=== PATIENT | male | born 1940 | race African-American/Black ===

== ENCOUNTER 2016-12-15 08:13 | Emergency (ER) | payer MEDICARE ==
[~2016-12-15] VITALS: Ht 175.3 cm; Wt 89.8 kg
[~2016-12-15 08:13] MED LIST: ASPI325T4 PO; HYDR-2762 PO; INSU100I11 SQ; NPH,100I3 SQ; OLME1TAB5 PO; SIMV20TA3 PO; TAMS0.4C2 PO
--- NOTE | 2016-12-15 08:48 | PHYS DOC ---
Past Medical History Past Medical History: Diabetes-Type II, High Cholesterol, Hypertension, Other Additional Past Medical Histor: enlarged prostate Past Surgical History: No Surgical History Alcohol Use: None Drug Use: None Adult General Chief Complaint Chief Complaint: LOWER BACK PAIN OR INJURY [facility] HPI Patient is a 76 year old male presents to emergency room today with atraumatic low back pain that does not radiate and is primarily located in his left lower back. Patient states this began approximately 5 days ago. Patient denies any slips or falls. Patient denies any history of spinal column or spinal cord injuries. Patient denies any known history of bone forming disorders. Patient denies saddle anesthesia or incontinence of urine and bowel. Patient denies flank pain, testicular pain, dysuria or hematuria. He states he does have a history of enlarged prostate, but denies personal history of prostate cancer. Patient reports that he recently returned from a car trip to [place] he states there was no problems with a car trip. There were no auto accidents reported. Patient does take [place] 7.5/325 daily for chronic pain. He states that that has not appeared to have helped very much. However, the pain has gradually been subsiding over the past 4 days. Review of Systems Review of Systems Constitutional: Denies fever or chills [] Eyes: Denies change in visual acuity, redness, or eye pain [] HENT: Denies nasal congestion or sore throat [] Respiratory: Denies cough or shortness of breath [] Cardiovascular: No additional information not addressed in HPI [] GI: Denies abdominal pain, nausea, vomiting, bloody stools or diarrhea [] : Denies dysuria or hematuria [] Musculoskeletal: Denies back pain or joint pain [] Integument: Denies rash or skin lesions [] Neurologic: Denies headache, focal weakness or sensory changes [] Endocrine: Denies polyuria or polydipsia [] Allergies Allergies Allergies Coded Allergies Type Severity Reaction Last Updated Verified No Known Drug Allergies 12/15/16 No Physical Exam Physical Exam Constitutional: Well developed, well nourished, no acute distress, non-toxic appearance. [] HENT: Normocephalic, atraumatic, bilateral external ears normal, oropharynx moist, no oral exudates, nose normal. [] Eyes: PERRLA, EOMI, conjunctiva normal, no discharge. [] Neck: Normal range of motion, no tenderness, supple, no stridor. [] Cardiovascular:Heart rate regular rhythm, no murmur [] Lungs & Thorax: Bilateral breath sounds clear to auscultation [] Abdomen: Bowel sounds normal, soft, no tenderness, no masses, no pulsatile masses. [] Skin: Warm, dry, no erythema, no rash. [] Back: Patient's back is normal in appearance without any overlying skin lesions suggestive of shingles. There is no CVA tenderness. Patient has tenderness to the left paraspinous region at the level of L3-L5 and S1. There is no palpable defect, deformity or spasm. Patient also complains of some midline tenderness in this region as well. Again there is no step-off deformity or abnormality. Extremities: No tenderness, no cyanosis, no clubbing, ROM intact, no edema. [] Neurologic: Alert and oriented X 3, normal motor function, normal sensory function, no focal deficits noted. [] Psychologic: Affect normal, judgement normal, mood normal. [] Current Patient Data Vital Signs Vital Signs Date Time Temp Pulse Resp B/P Pulse Ox O2 Delivery O2 Flow Rate FiO2 12/15/16 10:25 58 18 134/74 98 Room Air 12/15/16 08:29 97.5 97.5 EKG EKG [] Radiology/Procedures Radiology/Procedures [facility] [address] [place], [place] [id number] IMAGING REPORT Signed PATIENT: LAURA SANCHEZ ACCOUNT: [id number] : 1940 LOCATION: ER AGE: 76 SEX: M EXAM STATUS: REG ER ORD. PHYSICIAN: BRADFORD KNOTT REASON: LOW back pain PROCEDURE: LUMBAR SPINE WO CONTRAST EXAM: CT lumbar spine without contrast. HISTORY: Low back pain. TECHNIQUE: CT of the lumbar spine was performed without intravenous contrast. COMPARISON: None. FINDINGS: There is minimal retrolisthesis at L4-5. No fractures are identified. Degenerative disc disease is moderate to severe at L4-5, moderate at L3-4 and mild at other levels. There is a small zone at the inferior endplate of L2. There are cysts bilaterally in the kidneys, partially visualized. These appear stable since 2011. Atherosclerotic calcifications are noted. At L1-2, there is moderate bilateral facet osteoarthritis. There is mild right foraminal stenosis. At L2-3, there is a small posterior disc-osteophyte complex. There is moderate facet and ligamentum flavum hypertrophy. Central canal stenosis is mild. Foraminal stenosis is moderate on the left and [id number]-eo-siykcyzh on the right. At L3-4, there is a moderate posterior disc-osteophyte complex. There is mild to moderate facet and ligamentum flavum hypertrophy. Central canal stenosis is mild. Foraminal stenosis is moderate to severe on the right greater than left. L4-5, there is a moderate posterior disc-osteophyte complex. There is mild/moderate facet and ligamentum flavum hypertrophy. Central canal stenosis is moderate. Foraminal stenosis is moderate to severe on the left and moderate on the right. At L5-S1, there is a small posterior disc bulge. There is moderate to severe bilateral facet osteoarthritis. Central canal stenosis is moderate to severe. There is mild bilateral foraminal stenosis. IMPRESSION: 1. Diffuse central canal stenosis is moderate to severe at L5-S1, moderate at L4-5, and mild/moderate more superiorly as above. 2. Foraminal stenosis is diffusely moderate to severe from facet and ligamentum flavum hypertrophy as above. 3. Degenerative disc disease is moderate to severe at L4-5, moderate at L3-4 and mild elsewhere. One or more of the following individualized dose reduction techniques were utilized for this examination: 1. Automated exposure control. 2. Adjustment of the mA and/or kV according to patient size. 3. Use of iterative reconstruction technique. DICTATED and SIGNED BY: POLINA ROBERTS MD DATE: 12/15/16 0927 CC: BRADFORD KNOTT; MAIKEL CARTER MD ~ Course & Med Decision Making Course & Med Decision Making Pertinent Labs and Imaging studies reviewed. (See chart for details) [] Dragon Disclaimer Dragon Disclaimer This electronic medical record was generated, in whole or in part, using a voice recognition dictation system. Departure Departure Impression: Primary Impression: Back pain Additional Impression: Osteoarthritis Disposition: 01 HOME, SELF-CARE Condition: GOOD Referrals: MAIKEL CARTER MD (PCP) Patient Instructions: Back Pain, Adult, [id number]-[id number], Osteoarthritis Additional Instructions: 1. The CT scan of your back today shows no broken bones. There is quite a bit of degenerative changes that are chronic in nature. 2. The arthritis in your back was aggravated during the trip to [place] this past week. The fact that it has been resolving over the past week is very reassuring. 3. Continue to take your medications as prescribed. You can safely take your pain medication every 6 hours to help manage the pain. 4. Contact your primary care doctor's office this afternoon to schedule follow- up appointment for reevaluation next week if there are any concerns. Problem Qualifiers BRADFORD KNOTT Dec 15, 2016 08:48
--- NOTE | 2016-12-15 09:37 | RAD ---
EXAM: CT lumbar spine without contrast. HISTORY: Low back pain. TECHNIQUE: CT of the lumbar spine was performed without intravenous contrast. COMPARISON: None. FINDINGS: There is minimal retrolisthesis at L4-5. No fractures are identified. Degenerative disc disease is moderate to severe at L4-5, moderate at L3-4 and mild at other levels. There is a small zone at the inferior endplate of L2. There are cysts bilaterally in the kidneys, partially visualized. These appear stable since 2011. Atherosclerotic calcifications are noted. At L1-2, there is moderate bilateral facet osteoarthritis. There is mild right foraminal stenosis. At L2-3, there is a small posterior disc-osteophyte complex. There is moderate facet and ligamentum flavum hypertrophy. Central canal stenosis is mild. Foraminal stenosis is moderate on the left and [id number]-[id number] on the right. At L3-4, there is a moderate posterior disc-osteophyte complex. There is mild to moderate facet and ligamentum flavum hypertrophy. Central canal stenosis is mild. Foraminal stenosis is moderate to severe on the right greater than left. L4-5, there is a moderate posterior disc-osteophyte complex. There is mild/moderate facet and ligamentum flavum hypertrophy. Central canal stenosis is moderate. Foraminal stenosis is moderate to severe on the left and moderate on the right. At L5-S1, there is a small posterior disc bulge. There is moderate to severe bilateral facet osteoarthritis. Central canal stenosis is moderate to severe. There is mild bilateral foraminal stenosis. IMPRESSION: 1. Diffuse central canal stenosis is moderate to severe at L5-S1, moderate at L4-5, and mild/moderate more superiorly as above. 2. Foraminal stenosis is diffusely moderate to severe from facet and ligamentum flavum hypertrophy as above. 3. Degenerative disc disease is moderate to severe at L4-5, moderate at L3-4 and mild elsewhere. One or more of the following individualized dose reduction techniques were utilized for this examination: 1. Automated exposure control. 2. Adjustment of the mA and/or kV according to patient size. 3. Use of iterative reconstruction technique.
[2016-12-15 10:25] VITALS: BP 134/74
== END 2016-12-15 10:27 | disposition home or self-care (01) ==
LOC: ER 08:13
DX: M47.817 Spondylosis without myelopathy or radiculopathy, lumbosacral region (principal); M48.06 Spinal stenosis, lumbar region; G89.29 Other chronic pain; E11.9 Type 2 diabetes mellitus without complications; E78.00 Pure hypercholesterolemia, unspecified; I10 Essential (primary) hypertension; N40.0 Benign prostatic hyperplasia without lower urinary tract symptoms
CPT/HCPCS: 72131; 99284-25

== ENCOUNTER 2017-03-15 16:14 | Observation (INO) | payer BC ==
[~2017-03-15] VITALS: Ht 175.3 cm; Wt 87.1 kg
--- NOTE | 2017-03-15 17:25 | RAD ---
CT HEAD WO CONTRAST History: Left hand numbness for one day, history of TIA Comparison: MRI brain exam November 12, 2015, no previous head CT available Technique: Noncontrast [address] images were acquired from the skull base to the vertex. Exposure: One or more of the following individualized dose reduction techniques were utilized for this examination: 1. Automated exposure control 2. Adjustment of the mA and/or kV according to patient size 3. Use of iterative reconstruction technique. Findings: No acute extra-axial or parenchymal hemorrhage is identified. There is no significant intra-axial mass effect, midline shift, or extra-axial fluid collection. The enriquez-white differentiation of the major vascular territories is preserved. Ventricular size is stable. There is mild generalized supratentorial involutional change. The mastoid air cells and the visualized paranasal sinuses are aerated. No acute calvarial abnormality is identified. Impression: 1. No acute intracranial abnormality is identified. If there is concern for evolving or acute ischemia, followup CT or MRI could be beneficial. Electronically signed by: Ifeanyi Sorto MD (03/15/2017 5:22 PM)
--- NOTE | 2017-03-15 17:41 | PHYS DOC ---
Past Medical History Past Medical History: Diabetes-Type II, High Cholesterol, Hypertension, Other Additional Past Medical Histor: enlarged prostate Past Surgical History: No Surgical History Alcohol Use: None Drug Use: None Adult General Chief Complaint Chief Complaint: NEURO SYMPTOMS/DEFICITS HPI HPI 68-year-old male presenting to the emergency department with weakness in his left upper extremity and numbness in his left upper extremity from his elbow to his hand. This started approximately 24-30 hours ago. It is currently improving he reports. He denies any slurred speech facial droop or vision changes. Location brain. Duration intermittent. No alleviating factors. Review of systems is negative for chest pain shortness of breath abdominal pain nausea vomiting. All other review of systems is negative unless otherwise noted in history of present illness. Review of Systems Review of Systems SEE ABOVE. Allergies Allergies Allergies Coded Allergies Type Severity Reaction Last Updated Verified No Known Drug Allergies 12/15/16 No Physical Exam Physical Exam Constitutional: Well developed, well nourished, no acute distress, non-toxic appearance. HENT: Normocephalic, atraumatic, bilateral external ears normal, oropharynx moist, no oral exudates, nose normal. [] Eyes: PERRLA, EOMI, conjunctiva normal, no discharge. Neck: Normal range of motion, no tenderness, supple, no stridor. [] Cardiovascular:Heart rate regular rhythm, no murmur Lungs & Thorax: Bilateral breath sounds clear to auscultation [] Abdomen: Bowel sounds normal, soft, no tenderness, no masses, no pulsatile masses. [] Skin: Warm, dry, no erythema, no rash. Back: No tenderness, no CVA tenderness. [] Extremities: No tenderness, no cyanosis, no clubbing, ROM intact, no edema. Neurologic: Mental status: Awake oriented and alert x3 Cranial nerves: Extraocular movements intact, eyebrows jeannette bilaterally smile symmetric, uvula elevation, shoulder shrug intact, tongue protrusion normal DTRs: 2+ Sensation: Patient reports tingling in his left upper hand. Otherwise normal on both sides. Strength: 5/5 in upper and lower extremities bilaterally Normal finger to nose. No dysdiadochokinesia present. Psychologic: Affect normal, judgement normal, mood normal. [] Current Patient Data Vital Signs Vital Signs Date Time Temp Pulse Resp B/P (MAP) Pulse Ox O2 Delivery O2 Flow Rate FiO2 03/15/17 16:40 97.9 58 16 148/90 (109) 97 Room Air 97.9 EKG EKG [] Radiology/Procedures Radiology/Procedures [] Course & Med Decision Making Course & Med Decision Making Pertinent Labs and Imaging studies reviewed. (See chart for details) [] 68-year-old gentleman presenting to the emergency department with left hand numbness and weakness. Patient was afebrile with a normal heart rate. Pertinent physical exam findings showed 5 out of 5 strength in his upper extremity. He did report sensation changes in his left upper hand. The patient is outside of the TPA window and is outside of mechanical thrombectomy window. In addition to this, his NIH stroke scale would be very low and is currently improving. Head CT was unremarkable. Labs were obtained. The patient was then admitted to our hospital for MRI and neurology consultation, further evaluation workup and care. Discussed this as being in an observation admission with the admitting physician who agrees. Does not meet inpatient criteria. Dragon Disclaimer Dragon Disclaimer This electronic medical record was generated, in whole or in part, using a voice recognition dictation system. Departure Departure Impression: Primary Impression: Focal neurological deficit Disposition: ADMITTED INPATIENT Admitting Physician: Myriam Yung Condition: STABLE Referrals: MAIKEL CARTER MD (PCP) GABI ZARATE MD March 15, 2017 17:41
[2017-03-15 17:55] LABS: BASO # 0.1 x10^3/uL (0.0-0.2); BASO % 1 % (0-3); EOS % 1 % (0-3); LYMPH # 2.9 x10^3/uL (1.0-4.8); LYMPH % 37 % (24-48); MEAN CORPUSCULAR HEMOGLOBIN 30 pg (25-35); MEAN CORPUSCULAR HGB CONC 33 g/dL (31-37); MEAN CORPUSCULAR VOLUME 92 fL (79-100); MONO % 6 % (0-9); NEUT % 56 % (31-73); PLATELET COUNT 220 x10^3/uL (140-400)
[2017-03-15 18:10] LABS: CALCIUM 9.7 mg/dL (8.5-10.1); CREATININE 1.6 mg/dL (0.7-1.3); GFR 50.8; POTASSIUM 3.9 mmol/L (3.5-5.1)
[2017-03-15 18:19] LABS: BILIRUBIN,URINE NEGATIVE (NEG); GLUCOSE,URINE NEGATIVE (NEG); NITRITE,URINE NEGATIVE (NEG); PH,URINE 5.5; PROTEIN,URINE NEGATIVE (NEG-TRACE); UROBILINOGEN,URINE 0.2 mg/dL (0.2 mg/dL)
[2017-03-15 18:23] LABS: ALBUMIN 4.2 g/dL (3.4-5.0); DIRECT BILIRUBIN 0.1 mg/dL (0.0-0.2); TOTAL BILIRUBIN 0.5 mg/dL (0.2-1.0); TOTAL PROTEIN 7.7 g/dL (6.4-8.2)
--- NOTE | 2017-03-15 18:23 | PDOC2 ---
NEUROLOGY CONSULT Date of Admission Date of Admission DATE: 03/15/17 TIME: 18:11 Reason for Consult Reason for Consult: IMPRESSION: Left UE numbness and weakness x 24 to 30 hours before coming to ER. 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 DM HTN HLD Degenerative spine disease. Spinal stenosis. Smoking x 40 years. RECOMMENDATIONS/PLAN: Continue ASA 325 mg daily at the present time, may switch to Plavix if has stroke. Brain and C-spine MRI w/o contrast. carotid A US + Doppler. Echo + Bubble study. Fasting lipid panel and other labs. OT/PT Discussed with his at bedside. HISTORY OF THE PRESENT ILLNESS: 76-y-old AA male patient with Hx of old CVA in 2015 with left side weakness at the time of his stroke. He recovered well post stroke per his . He developed symptoms of numbness and weakness in his left UE for about 24 to 30 hours before he came to [facility] ER [facility]. He stated that his symptoms persistent. His cranial nerves and LE were not involved. PAST MEDICAL HISTORY: Please see above. 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 ALLERGY: Unknown MEDICATIONS: Refer to [facility] HISTORY: Non contributory. SOCIAL HISTORY: Lives at home. Denies illicit drug use. He smokes 1 pack of cigarettes a day for 60 years. He drinks occasionally. REVIEW OF SYSTEMS: Constitutional: No malnutrition, weight loss, cachexia. Head: No traumatic brain or head injury. Skin: No edema, or rash. Ear: No infection. Eyes: No vision loss or color blindness. Nose: No bleeding or purulent discharges. Hearing: No hearing decrease. Neck: No injury. Cardiac: HTN, HLD. Pulmonary: No SOB. GI: No GI ulcer, GI bleeding. Urinary/genital: BPH. Endocrinologic: Diabetes Mellitus. Skeletomuscular: No muscular atrophy, deformity. Neurological: see HP. Psychiatric: Denies drug use/abuse. Otherwise, not [id number] review of systems. PHYSICAL EXAMINATION: General appearance is in subacute distress. HEENT: Normocephalic and nontraumatic. Eyes, nose, ears, and throat are unremarkable. Neck is supple. No lymphadenopathy. No crepitus. Cardiovascular: S1, S2, regular rate and rhythm. Pulmonary: Clear to auscultation bilaterally. Abdomen: Bowel sounds are positive. Abdomen is soft, nontender, and nondistended. Extremities: No rash, lesions, or edema. No restriction of range of motion NEUROLOGICAL EXAMINATION: Awake. Oriented to place and person and partially to time. PERRL. EOMI. Sclera congestion. CN: no acute focal findings. Muscle tone: within normal. Muscle strength: 5 DTR: 1-2 Plantar reflex: Neutral response bilaterally Gait: not examined in bed. Sensory exam: seemed mildly decreased in left UE. No abnormal findings in right UE and LE. No acute cerebellar signs elicited. F-T-N test fine. Current Medications Current Medications Current Medications Aspirin (Derik Aspirin) 325 mg DAILYWBKFT PO ; Start 03/16/17 at 08:00 Active Scripts Active Aspirin 325 Mg Tablet 325 Mg PO DAILYWBKFT Reported Humulin N Kwikpen (Nph, Human Insulin Isophane) 100 Unit/1 Ml Insuln.pen 15-20 Units SQ BID Gave 15 units this morning Take 15 units this evening at bedtime Humalog (Insulin Lispro) 100 Unit/1 Ml Insuln.pen 7 Units SQ TIDWMEALS Gave 7 units with lunch today Take this evening with dinner Simvastatin 20 Mg Tablet 1 Tab PO DAILY Take tonight before bed Hydrocodone-Apap 7.5-325 (Hydrocodone Bit/Acetaminophen) 1 Each Tablet 1-2 Tab PO Q8HRS PRN Not given on this admission Take as needed at home Benicar Hct 40-25 Mg Tablet (Olmesartan/Hydrochlorothiazide) 1 Each Tablet 1 Tab PO DAILY Gave this am Take tomorrow morning Tamsulosin Hcl 0.4 Mg Cap.er.24h 0.4 Mg PO DAILY Gave this morning Take tomorrow morning Allergies Allergies: Coded Allergies: No Known Drug Allergies (Unverified , 12/15/16) Vitals VITALS Vital Signs Date Time Temp Pulse Resp B/P (MAP) Pulse Ox O2 Delivery O2 Flow Rate FiO2 03/15/17 16:40 97.9 58 16 148/90 (109) 97 Room Air 97.9 Labs Labs Laboratory Tests Test 03/15/17 17:45 White Blood Count 8.0 x10^3/uL (4.0-11.0) Red Blood Count 4.70 x10^6/uL (4.30-5.70) Hemoglobin 14.0 g/dL (13.0-17.5) Hematocrit 43.0 % (39.0-53.0) Mean Corpuscular Volume 92 fL (79-100) Mean Corpuscular Hemoglobin 30 pg (25-35) Mean Corpuscular Hemoglobin Concent 33 g/dL (31-37) Red Cell Distribution Width 15.0 % (11.5-14.5) Platelet Count 220 x10^3/uL (140-400) Neutrophils (%) (Auto) 56 % (31-73) Lymphocytes (%) (Auto) 37 % (24-48) Monocytes (%) (Auto) 6 % (0-9) Eosinophils (%) (Auto) 1 % (0-3) Basophils (%) (Auto) 1 % (0-3) Neutrophils # (Auto) 4.4 x10^3uL (1.8-7.7) Lymphocytes # (Auto) 2.9 x10^3/uL (1.0-4.8) Monocytes # (Auto) 0.5 x10^3/uL (0.0-1.1) Eosinophils # (Auto) 0.0 x10^3/uL (0.0-0.7) Basophils # (Auto) 0.1 x10^3/uL (0.0-0.2) Laboratory Tests Test 03/15/17 17:45 White Blood Count 8.0 x10^3/uL (4.0-11.0) Red Blood Count 4.70 x10^6/uL (4.30-5.70) Hemoglobin 14.0 g/dL (13.0-17.5) Hematocrit 43.0 % (39.0-53.0) Mean Corpuscular Volume 92 fL (79-100) Mean Corpuscular Hemoglobin 30 pg (25-35) Mean Corpuscular Hemoglobin Concent 33 g/dL (31-37) Red Cell Distribution Width 15.0 % (11.5-14.5) Platelet Count 220 x10^3/uL (140-400) Neutrophils (%) (Auto) 56 % (31-73) Lymphocytes (%) (Auto) 37 % (24-48) Monocytes (%) (Auto) 6 % (0-9) Eosinophils (%) (Auto) 1 % (0-3) Basophils (%) (Auto) 1 % (0-3) Neutrophils # (Auto) 4.4 x10^3uL (1.8-7.7) Lymphocytes # (Auto) 2.9 x10^3/uL (1.0-4.8) Monocytes # (Auto) 0.5 x10^3/uL (0.0-1.1) Eosinophils # (Auto) 0.0 x10^3/uL (0.0-0.7) Basophils # (Auto) 0.1 x10^3/uL (0.0-0.2) ÁLVARO NUÑEZ MD March 15, 2017 18:23
[2017-03-15 18:25] LABS: BARBITURATES NEG (NEG); BENZODIAZEPINES NEG (NEG); CANNABINOIDS NEG (NEG); COCAINE NEG (NEG); METHADONE NEG (NEG); OPIATES POS (NEG); PHENCYCLIDINE NEG (NEG)
[2017-03-15 18:29] LABS: BACTERIA,URINE 0 /HPF (0-FEW); RBC,URINE OCC /HPF (0-2); SQUAMOUS EPITHELIAL CELL,UR FEW /LPF
[2017-03-15] MEDS ORDERED: MORPHINE SULFATE 2 MG/ML DISP.SYRIN. IV PRN (19:30)
[2017-03-15] MEDS ORDERED: ONDANSETRON PF 4 MG/2 ML VIAL. IV PRN (19:30)
--- NOTE | 2017-03-15 20:23 | RAD ---
Carotid doppler ultrasound History: Left arm weakness today Multiple grayscale, color, and duplex spectral analysis waveform sonographic images were acquired of the carotid, subclavian, and vertebral arteries. Comparison: None Findings: RIGHT: PSV cm/sec EDV cm/sec Common carotid artery 89 26 Maximal internal carotid artery 65 21 External carotid artery 75 Vertebral artery 36 ICA/CCA ratio 0.73 LEFT: PSV cm/sec EDV cm/sec Common carotid artery 99 25 Maximum internal carotid artery 76 13 External carotid artery 83 Vertebral artery 46 ICA/CCA ratio 0.77 Velocities used to determine stenosis are known to correlate with NASCET angiographic criteria. There is antegrade flow in the bilateral vertebral arteries. There is tortuosity of the internal carotid arteries bilaterally. There is mild intimal thickening bilaterally. There is mild eccentric plaque of the carotid bifurcations bilaterally, left greater than right. There is no significant stenosis demonstrated on grayscale or color images. Impression: 1. There is no evidence of a hemodynamically significant stenosis. Electronically signed by: Ifeanyi Sorto MD (03/15/2017 8:21 PM)
[2017-03-15 20:55] VITALS: BP 160/79
[2017-03-15 23:06] VITALS: BP 169/85
--- NOTE | 2017-03-15 23:16 | RAD ---
MRI Brain without contrast History: Left hand numbness for 2 days, weakness Technique: Axial diffusion, axial gradient echo T2, axial T2, axial FLAIR, sagittal and axial T1, and coronal T2 weighted images were acquired of the brain. Contrast: None Comparison: November 12, 2015 Findings: There is mild motion degradation.There is no evidence of recent infarct or cytotoxic edema. Ventricular size is stable, proportioned to the sulcal spaces. There is again mild generalized supratentorial atrophy. There are again multiple foci of abnormal T2 and FLAIR hyperintensity on abnormality of the supratentorial white matter bilaterally, overall extent of signal abnormality similar. There is no new significant hemosiderin deposition of the brain parenchyma. There is again old lacunar infarct of the left cerebellum.There is no significant midline shift, intra-axial mass effect, or focal abnormal extra-axial fluid collection. There is preservation of the major intracranial flow-voids at the skull base. The mastoid air cells are aerated. The cerebellar tonsils are normal in location. There is no significant abnormality of the pineal gland or pituitary gland. There is negligible patchy maxillary sinus mucosal thickening, also minimal bilateral ethmoid air cell and frontal sinus mucosal thickening. There is preserved marrow signal of the clivus. 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 Impression: 1. There is no evidence of a recent infarct or intracranial mass effect, findings similar to October 2015 exam. Similar multiple foci of T2 and FLAIR hyperintense signal abnormality of the supratentorial white matter are nonspecific, most commonly due to chronic microvascular ischemic disease in a patient this age. There is again generalized supratentorial atrophy. Electronically signed by: Ifeanyi Sroto MD (03/15/2017 11:13 PM)
[2017-03-15] MEDS: IV NORMAL SALINE 1000ML BAG 1,000 ML IV SCH (23:32)
[2017-03-16 03:30] VITALS: BP 137/89
[2017-03-16 04:36] LABS: CREATININE 1.2 mg/dL (0.7-1.3); GFR 70.9; POTASSIUM 3.6 mmol/L (3.5-5.1)
[2017-03-16 04:42] LABS: CHOLESTEROL/HDL RATIO 3.6
[2017-03-16 05:38] LABS: HEMATOCRIT 40.8 % (39.0-53.0); HEMOGLOBIN 13.2 g/dL (13.0-17.5); MEAN CORPUSCULAR VOLUME 92 fL (79-100); RED BLOOD COUNT 4.45 x10^6/uL (4.30-5.70); WHITE BLOOD COUNT 6.7 x10^3/uL (4.0-11.0)
[2017-03-16 05:39] LABS: BASO % 1 % (0-3); EOS % 2 % (0-3); LYMPH # 3.1 x10^3/uL (1.0-4.8); LYMPH % 46 % (24-48); MEAN CORPUSCULAR HEMOGLOBIN 30 pg (25-35); MEAN CORPUSCULAR HGB CONC 32 g/dL (31-37); MONO % 7 % (0-9); NEUT % 44 % (31-73); PLATELET COUNT 207 x10^3/uL (140-400); RED CELL DISTRIBUTION WIDTH 15.5 % (11.5-14.5)
[2017-03-16 05:40] LABS: BASO # 0.1 x10^3/uL (0.0-0.2)
[2017-03-16 07:00] VITALS: BP 124/74
--- NOTE | 2017-03-16 07:22 | EKG ---
[facility] [address] [place] [address] Test Date: 2017-03-15 Test Time: 17:37:24 Pat Name: LAURA SANCHEZ Department: Room: 438 1 Gender: M Cytotechnologist/Histotechnologist: : 1940 Requested By: GABI ZARATE Order Number: [id number] Reading MD: Camryn Nix Measurements Intervals [place] Rate: 59 P: 41 NC: 236 QRS: 15 QRSD: 68 T: 75 QT: 428 QTc: 424 Interpretive Statements SINUS RHYTHM PROLONGED NC INTERVAL T ABNORMALITY IN HIGH LATERAL LEADS Electronically Signed On 03-18-2017 15:22:26 CDT by Camryn Nix
--- NOTE | 2017-03-16 07:38 | RAD ---
Indication neurodeficits. Suspect CVA. Protocol study. A single view of the chest was obtained and is compared to an examination November 12, 2015. The heart and pulmonary vessels appear normal. The mediastinum appears normal. The lungs are clear. Bony structures appear grossly intact. A significant change compared to the previous exam is not seen. IMPRESSION: No acute or focal process seen in the chest
[2017-03-16] MEDS ORDERED: ASPIRIN 325 MG TABLET PO SCH ×2 (08:00→09:00)
[2017-03-16] MEDS: IV NORMAL SALINE 1000ML BAG 1,000 ML IV SCH ×2 (08:55→11:30)
--- NOTE | 2017-03-16 08:56 | PDOC ---
Provider Note Provider Note ct head, mr, carotids, cxr all clear- lab ok- home if dr obregon ok as i dont know him- [id number] REAGAN MENSAH MD March 16, 2017 08:56
[2017-03-16] MEDS ORDERED: TAMSULOSIN 0.4 MG CAP.ER.24H. PO SCH (09:00)
[2017-03-16] MEDS ORDERED: HYDROcodone/APAP 7.5/325MG 1 TAB TABLET PO PRN (09:00)
--- NOTE | 2017-03-16 09:22 | HP ---
ADMIT DATE: 03/16/2017 CHIEF COMPLAINT: Left hand weakness. HISTORY OF PRESENT ILLNESS: A 76-year-old black male known to Dr. 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 Dr. Howard ordered CT head, carotids and the MRI of the brain were normal. He is feeling better at this time. PAST MEDICAL HISTORY: Well documented in the old records. MEDICATIONS: Listed per the chart. ALLERGIES: No allergies are known. SOCIAL HISTORY: , nonsmoker, nondrinker. FAMILY HISTORY: Unremarkable. REVIEW OF SYSTEMS: No other complaints. OBJECTIVE: ENT: All within normal limits. NECK: No masses, nodes or carotid bruits. LUNGS: Clear. CARDIOVASCULAR: Regular rate. No irregular beat or murmur. ABDOMEN: Soft, benign and nontender. EXTREMITIES: Good pedal and radial pulses. He moves all extremities. 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 Speech, mentation and cranial nerves intact. Gait was not tested. No tremors are noted. ASSESSMENT: Left hand weakness. No obvious evidence of central nervous system injury. PLAN: Per Dr. Howard. REAGAN MENSAH MD DR: KAILA/mara JOB#: [id number] / [id number]
--- NOTE | 2017-03-16 09:48 | ACF ---
Admission Forms Criteria NEUROLOGY GRG Clinical Indications for Admission to Inpatient Care (Place ' X' for any and all applicable criteria): Hospital admission is needed for appropriate care of the patient because of 1 or more of the following: [ ]I. Encephalitis [ ]II. Severe [place] infections indicated by 1 or more of the following(1)(2)(3) : [ ]a) Intracranial abscess [ ]b) Spinal abscess or myelitis [ ]c) Tuberculous or other nonbacterial, nonviral [place] infection(8) [ ]III. Vasculitis and 1 or more of the following(14)(15): []a) Altered mental status that is severe or persistent or other acute neurologic change []b) Psychosis []c) Seizure [ ]IV. Status epilepticus or repetitive seizures not controlled with emergent treatment [A] (7)(8) [ ]V. Altered mental status that is severe or persistent [ ]. Transient alteration in consciousness with high-risk etiology; examples include (12)(13): [ ]a) Cardiovascular source [ ]b) Cataplexy [ ]VII. Cerebral aneurysm requiring ANY ONE of the following(14): [ ]a) IV antihypertensives or vasoactive agents [ ]b) Sedation and analgesia for suspected leak [ ]c) Need for external ventricular drainage and cerebral perfusion pressure monitoring [ ]d) Emergent evaluation to determine need for surgical clipping or endovascular coiling by interventional radiology. If surgery is required ( Also use Craniotomy, Supratentorial, for Surgery of Bleeding Intracranial Aneurysm (for bleeding aneurysm) or Craniotomy, Supratentorial (for nonbleeding aneurysm) as appropriate. [X]VIII. New-onset severe neurologic symptom requiring inpatient care indicated by ANY ONE of the following: [ ]a) Aphasia(15) [ ]b) Weakness (grade 3 or less) [ ]c) Paralysis (eg, hemiplegia) [ ]d) Spasticity(16) [ ]e) Dystonia [ ]e) Ataxia(17) [ ]f) Amnesia(18) [ ]g) Involuntary movements(19) [ ]h) Vertigo [ ] Visual loss [X]i) Other severe neurologic finding (eg, papilledema, mass effect on imaging, myoclonus not treatable at alternative level of care (eg, observation care) [ ]IX. Guillain-[place] syndrome(20) [ ]X. Myasthenia gravis crisis or inpatient monitoring need as indicated by 1 or more of the following(21): [ ]a) Intensive treatment (eg, course of plasmapheresis) with inadequate outpatient situation to monitor patients status [ ]b) Inadequate airway protection [ ]c) Respiratory insufficiency requiring intubation or inpatient. monitoring [ ]d) Progressive dysphagia with failure to thrive [ ]XI. Multiple sclerosis or other acute demyelinating disease requiring inpatient care as indicated by 1 or more of the following (22)(23): [ ]a) Acute severe deterioration requiring inpatient treatment (eg, IV steroids, plasmapheresis, close observation) [ ]b) Acute complication requiring inpatient care (eg, sepsis, severe decubitus, aspiration) [ ]XII.Parkinson disease requiring inpatient care (Also use Optimal Recovery Care Criteria or General Recovery Criteria as appropriate) indicated by 1 or more of the following(25): [ ]a) Infection (eg, aspiration pneumonia) not treatable at alternative level of care [ ]b Dehydration that is severe or persistent [ ]c) Life-threatening agitation or psychotic behavior not treatable on emergency, observation care, or alternative level (eg, residential) basis [ ]d) Severe medication withdrawal effects (eg, freezing, neuroleptic malignant syndrome) not responsive to emergency and observation care treatment ( as appropriate) [ ]e) Other severe manifestation not treatable at alternative level of care [ ]XII. Amyotrophic lateral sclerosis with inpatient care needs as indicated by ANY ONE of the following(26): [ ]a) Acute complications (eg, aspiration pneumonia, sepsis ) requiring inpatient care ( see other optimal Recovery Guideline as appropriate) [ ]b) Dehydration that is severe persistent AND artificial support desired [ ]c) Inadequate airway protection AND artificial support desired [ ]d) Severe ventilatory insufficiency AND artificial support desired [ ]XIII. Myasthenia gravis crisis or inpatient monitoring need as indicated by 1 or more of the following(21): [] a) Inadequate airway protection []b) Respiratory insufficiency requiring intubation or inpatient monitoring []c) Progressive dysphagia with failure to thrive []d) Intensive treatment (e.g., course of plasmapheresis) with inadequate outpatient situation to monitor patients status [ ]XIV. Multiple sclerosis or other acute demyelinating disease requiring inpatient care indicated by 1 or more of the following[C](36)(43)(44)(45)(46): []a) Acute severe deterioration requiring inpatient treatment (eg, IV steroids, plasmapheresis, close observation) []b) Acute complication requiring inpatient care (eg, sepsis, severe decubitus, aspiration) [ ]XV. Intracranial hypertension (e.g., pseudotumor cerebri) requiring inpatient care (e.g., acute visual loss, inadequate oral intake) (47)(48)(49) [ ]XVI. Parkinson disease requiring inpatient care (Also use Optimal Recovery Care Criteria or General Recovery Criteria as appropriate) indicated by 1 or more of the following(25): [] a) Infection (e.g., aspiration pneumonia) not treatable at alternative level of care []b) Volume depletion not responsive to emergency and observation care treatment (as appropriate) []c) Life-threatening agitation or psychotic behavior not treatable on emergency, observation care, or alternative level (e.g., residential) basis []d) Severe medication withdrawal effects (e.g., freezing, neuroleptic malignant syndrome) not responsive to emergency and observation care treatment (as appropriate) []e) Other severe manifestation not treatable at alternative level of care [ ]XVII. Amyotrophic lateral sclerosis with inpatient care needs as indicated by1 or more of the following(42): []a) Acute complications (eg, aspiration pneumonia, sepsis) requiring inpatient care (see other Optimal Recovery Guideline or General Recovery Guideline as appropriate) []b) Dehydration that is severe or persistent AND artificial support desired []c) Inadequate airway protection AND artificial support desired []d) Severe ventilatory insufficiency AND artificial support desired [ ]XVIII. Severe myopathy, neuropathy, or other neuromuscular disease indicated by 1 or more of the following(42)(52)(53)(54): []a ) New-onset severe diffuse weakness (eg, strength 3/5 or less) []b) Severe dysphagia []c) Dyspnea at rest or with minimal exertion (new) []d) Inadequate airway protection []e) Inadequate ventilation indicated by 1 or more of the following : i) Partial pressure of carbon dioxide greater than 44 mm Hg ( 5.9 kPa) (new) ii) Reduced peak expiratory flow rate (new) iii) Vital capacity less than 50% of predicted (less than 15 mL/kg) iv) Peak inspiratory force less negative than -30 cm H2O (- 2942 Pa) [ ]XVII.Complications of congenital or degenerative disease (eg, infection, seizures, dehydration, injury) not responsive to emergency and observation care treatment (as appropriate ) [C](16)(29)(30) [ ]XVIII.Suspected or confirmed nerve or muscle toxic injury, including ANY ONE of the following: [ ]a) Rhabdomyolysis(31) i) Acute renal failure ii) Dehydration that is severe or persistent iii) Altered mental status that is severe or persistent iv) Electrolyte abnormality that remains after emergency or observation level care ( as appropriate) [ ]b) Botulism(32) [ ]c) Other severe toxin-induced sign or symptom [ ]XIX. Neurologic trauma requiring inpatient treatment (medical) indicated by ANY ONE of the following(33)(34): [ ]a) Vital signs or neurologic signs more frequently than every 4 hours [ ]b) Hyperosmolar therapy [ ]c) Respiratory monitoring [ ]d) Intracranial pressure monitoring and treatment [ ]e) Stabilization and immobilization device placement (eg, braces, body jacket) [ ]f) Intubation & mechanical ventilation for airway protection or therapeutic hyperventilation [ ]g) Other treatment or monitoring needed that requires inpatient level of care [ ]XX.Complications of neurologic devices (eg, ventricular shunt, neurostimulator) requiring 1 or more of the following(35)(36): [ ]a) IV antibiotics with monitoring while awaiting culture results [ ]b) Monitoring for hydrocephalus [ ]XXI. Neurology condition symptom, or finding for which emergency and observation care have failed or are not considered appropriate. See General Criteria: Observation Care ISC, General Admission Criteria GRG, or Pediatric General Admission Criteria GRG guideline as appropriate. The original [facility] [employer] content created by [facility] has been revised. The portions of the content which have been revised are identified through the use of italic text or in bold, and [facility] has neither reviewed nor approved the modified material. All other unmodified content is copyright [facility] Please see references footnoted in the original [facility] edition 2016 Admission Criteria Met?: Yes MORAIMA MEJIAS March 16, 2017 09:48
[2017-03-16] MEDS ORDERED: hydroCHLOROthiazide 25 MG TABLET PO SCH (10:00)
[2017-03-16] MEDS ORDERED: LOSARTAN POTASSIUM 50 MG TABLET. PO SCH (10:00)
--- NOTE | 2017-03-16 10:51 | RAD ---
MR CERVICAL SPINE HISTORY: CONTINUED LEFT HAND NUMBNESS AND TINGLING X 2 DAYS, NO SX HX, NO PRIORS Technique: Sagittal T2, sagittal STIR, sagittal T1, and axial gradient echo imaging was obtained of the cervical spine. FINDINGS: There is no compression fracture. Degenerative changes are noted at all levels. Alignment and curvature are within normal limits. Visualized soft tissues of the neck are within normal limits. At C2-C3 there is no spinal stenosis. Disc height loss is noted. At C3-C4 there is a disc osteophyte complex causing moderate mass effect upon the cord. No obvious cord signal abnormality. There is also bilateral uncovertebral hypertrophy resulting in moderate bilateral foraminal stenosis. At C4-C5 there is a discussed by complex causing mild mass effect upon the ventral surface of the cord. At C5-C6 there is bilateral uncovertebral hypertrophy worse on the right causing [id number] right foraminal stenosis. At C6-C7 there is bilateral uncovertebral hypertrophy worse than left causing [id number] left foraminal stenosis. At C7-T1 there is no spinal stenosis. IMPRESSION: Multilevel degenerative disc disease greatest at C3-C4 where there is moderate mass effect upon the cord and bilateral foraminal stenosis. Other less severe degenerative changes, all as above. Electronically signed by: Indio Hollingsworth MD (03/16/2017 10:47 AM)
[2017-03-16 11:00] VITALS: BP 123/71
[2017-03-16] MEDS ORDERED: INSULIN ASPART 300 UNITS/3 ML INSULN.PEN SQ SCH (12:00)
--- NOTE | 2017-03-16 12:12 | PDOC ---
SUBJECTIVE Subjective Pt seen/examined. Consult dictated #[id number]. Briefly, 76M with transient left hand tingling and wrist weakness that began couple days ago while sitting and watching TV. Now essentially resolved. On exam , he is neurologically intact. Imaging with degenerative changes and cervical stenosis most prominently C3-4. No intervention at present time as symptoms essentially resolved and is without deficits on exam. Discussed neurological changes to monitor for with patient and family and they expressed understanding. They will notify us should any such changes occur. May d/c from NS standpoint when otherwise meets criteria. May follow-up as needed if problems occur. All questions answered. All in agreement. OBJECTIVE Vital Signs Vital Signs Date Time Temp Pulse Resp B/P (MAP) Pulse Ox O2 Delivery O2 Flow Rate FiO2 03/16/17 11:00 98.4 60 16 123/71 (88) 96 Room Air 98.4 03/16/17 08:00 Room Air 03/16/17 07:00 98.2 61 18 124/74 (91) 95 Room Air 98.2 03/16/17 03:30 70 18 137/89 (105) 95 Room Air 03/15/17 23:06 97.8 59 20 169/85 (113) 96 Room Air 97.8 03/15/17 21:00 Room Air 03/15/17 20:55 97.8 57 18 160/79 (106) 96 Room Air 97.8 03/15/17 19:49 58 16 143/67 (92) 97 Room Air 03/15/17 19:09 56 16 176/89 (118) 97 Room Air 03/15/17 18:49 56 16 168/81 (110) 03/15/17 18:29 56 18 171/84 (113) 93 Room Air 03/15/17 17:49 60 16 163/83 (109) 97 Room Air 03/15/17 16:40 97.9 58 16 148/90 (109) 97 Room Air 97.9 COMMENT Lab Laboratory Tests Test 03/15/17 17:45 03/15/17 18:09 03/15/17 23:02 03/16/17 04:00 White Blood Count 8.0 x10^3/uL (4.0-11.0) 6.7 x10^3/uL (4.0-11.0) Red Blood Count 4.70 x10^6/uL (4.30-5.70) 4.45 x10^6/uL (4.30-5.70) Hemoglobin 14.0 g/dL (13.0-17.5) 13.2 g/dL (13.0-17.5) Hematocrit 43.0 % (39.0-53.0) 40.8 % (39.0-53.0) Mean Corpuscular Volume 92 fL (79-100) 92 fL (79-100) Mean Corpuscular Hemoglobin 30 pg (25-35) 30 pg (25-35) Mean Corpuscular Hemoglobin Concent 33 g/dL (31-37) 32 g/dL (31-37) Red Cell Distribution Width 15.0 % (11.5-14.5) 15.5 % (11.5-14.5) Platelet Count 220 x10^3/uL (140-400) 207 x10^3/uL (140-400) Neutrophils (%) (Auto) 56 % (31-73) 44 % (31-73) Lymphocytes (%) (Auto) 37 % (24-48) 46 % (24-48) Monocytes (%) (Auto) 6 % (0-9) 7 % (0-9) Eosinophils (%) (Auto) 1 % (0-3) 2 % (0-3) Basophils (%) (Auto) 1 % (0-3) 1 % (0-3) Neutrophils # (Auto) 4.4 x10^3uL (1.8-7.7) 3.0 x10^3uL (1.8-7.7) Lymphocytes # (Auto) 2.9 x10^3/uL (1.0-4.8) 3.1 x10^3/uL (1.0-4.8) Monocytes # (Auto) 0.5 x10^3/uL (0.0-1.1) 0.4 x10^3/uL (0.0-1.1) Eosinophils # (Auto) 0.0 x10^3/uL (0.0-0.7) 0.1 x10^3/uL (0.0-0.7) Basophils # (Auto) 0.1 x10^3/uL (0.0-0.2) 0.1 x10^3/uL (0.0-0.2) Sodium Level 143 mmol/L (136-145) 143 mmol/L (136-145) Potassium Level 3.9 mmol/L (3.5-5.1) 3.6 mmol/L (3.5-5.1) Chloride Level 105 mmol/L (98-107) 107 mmol/L (98-107) Carbon Dioxide Level 29 mmol/L (21-32) 27 mmol/L (21-32) Anion Gap 9 (6-14) 9 (6-14) Blood Urea Nitrogen 16 mg/dL (8-26) 14 mg/dL (8-26) Creatinine 1.6 mg/dL (0.7-1.3) 1.2 mg/dL (0.7-1.3) Estimated GFR (Cockcroft-Gault) 50.8 70.9 Glucose Level 102 mg/dL (70-99) 98 mg/dL (70-99) Lactic Acid Level 1.3 mmol/L (0.4-2.0) Calcium Level 9.7 mg/dL (8.5-10.1) 9.0 mg/dL (8.5-10.1) Total Bilirubin 0.5 mg/dL (0.2-1.0) Direct Bilirubin 0.1 mg/dL (0.0-0.2) Aspartate Amino Transf (AST/SGOT) 19 U/L (15-37) Alanine Aminotransferase (ALT/SGPT) 20 U/L (16-63) Alkaline Phosphatase 47 U/L (46-116) Troponin I Quantitative < 0.017 ng/mL (0.000-0.055) [id number] Natriuretic Peptide 35 pg/mL (0-449) Total Protein 7.7 g/dL (6.4-8.2) Albumin 4.2 g/dL (3.4-5.0) Lipase 142 U/L (73-393) Vitamin B12 Level 459 pg/mL (247-911) Thyroid Stimulating Hormone (TSH) 1.896 uIU/mL (0.358-3.74) Urine Collection Type Unknown Urine Color Yellow Urine Clarity Clear Urine pH 5.5 Urine Specific Mcgrady 1.015 Urine Protein Negative mg/dL (NEG-TRACE) Urine Glucose (UA) Negative mg/dL (NEG) Urine Ketones (Stick) Negative mg/dL (NEG) Urine Blood Negative (NEG) Urine Nitrite Negative (NEG) Urine Bilirubin Negative (NEG) Urine Urobilinogen Dipstick 0.2 mg/dL (0.2 mg/dL) Urine Leukocyte Esterase Small (NEG) Urine RBC Occ /HPF (0-2) Urine WBC 5-10 /HPF (0-4) Urine Squamous Epithelial Cells Few /LPF Urine Bacteria 0 /HPF (0-FEW) Urine Hyaline Casts Few /HPF Urine Mucus Slight /LPF Urine Opiates Screen Pos (NEG) Urine Methadone Screen Neg (NEG) Urine Barbiturates Neg (NEG) Urine Phencyclidine Screen Neg (NEG) Urine Amphetamine/Methamphetamine Neg (NEG) Urine Benzodiazepines Screen Neg (NEG) Urine Cocaine Screen Neg (NEG) Urine Cannabinoids Screen Neg (NEG) Urine Ethyl Alcohol Neg (NEG) Glucose (Fingerstick) 155 mg/dL (70-99) Triglycerides Level 89 mg/dL (0-150) Cholesterol Level 155 mg/dL (0-200) LDL Cholesterol, Calculated 94 mg/dL (0-100) VLDL Cholesterol, Calculated 18 mg/dL (0-40) Non-HDL Cholesterol Calculated 112 mg/dL (0-129) HDL Cholesterol 43 mg/dL (40-60) Cholesterol/HDL Ratio 3.6 Test 03/16/17 07:06 03/16/17 11:23 Glucose (Fingerstick) 126 mg/dL (70-99) 156 mg/dL (70-99) RACHEL ZULETA MD March 16, 2017 12:12
[2017-03-16 12:17] VITALS: BP 123/71
--- NOTE | 2017-03-16 15:45 | PDOC ---
PROGRESS NOTES Assessment Assessment Left UE numbness and weakness x 24 to 30 hours before coming to ER. 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 DM HTN HLD Degenerative spine disease. Spinal stenosis. Smoking x 40 years. No evidence of acute CVA this time. RECOMMENDATIONS/PLAN: Continue ASA 325 mg daily. Continue Statin HS. Consulted Neurosurgery for C3-C4 mass effect on cord and C-spine stenosis. Discussed with his again at bedside on 03/16. HISTORY OF THE PRESENT ILLNESS: 76-y-old AA male patient with Hx of old CVA in 2014 with left side weakness at the time of his stroke. He recovered well post stroke per his . He developed symptoms of numbness and weakness in his left UE for about 24 to 30 hours before he came to [facility] ER [facility]. He stated that his symptoms persistent. His cranial nerves and LE were not involved. He has mild symptoms of numbness in his left UE rated 2/10. Other symptoms resolved. NS consulted. PAST MEDICAL HISTORY: Please see above. 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 ALLERGY: Unknown MEDICATIONS: Refer to [facility] FAMILY HISTORY: Non contributory. SOCIAL HISTORY: Lives at home. Denies illicit drug use. He smokes 1 pack of cigarettes a day for 60 years. He drinks occasionally. REVIEW OF SYSTEMS: Constitutional: No malnutrition, weight loss, cachexia. Head: No traumatic brain or head injury. Skin: No edema, or rash. Ear: No infection. Eyes: No vision loss or color blindness. Nose: No bleeding or purulent discharges. Hearing: No hearing decrease. Neck: No injury. Cardiac: HTN, HLD. Pulmonary: No SOB. GI: No GI ulcer, GI bleeding. Urinary/genital: BPH. Endocrinologic: Diabetes Mellitus. Skeletomuscular: No muscular atrophy, deformity. Neurological: see HP. Psychiatric: Denies drug use/abuse. Otherwise, not -fhjmu review of systems. PHYSICAL EXAMINATION: General appearance is in subacute distress. HEENT: Normocephalic and nontraumatic. Eyes, nose, ears, and throat are unremarkable. Neck is supple. No lymphadenopathy. No crepitus. Cardiovascular: S1, S2, regular rate and rhythm. Pulmonary: Clear to auscultation bilaterally. Abdomen: Bowel sounds are positive. Abdomen is soft, nontender, and nondistended. Extremities: No rash, lesions, or edema. No restriction of range of motion NEUROLOGICAL EXAMINATION: Awake. Oriented to place and person and partially to time. PERRL. EOMI. Sclera congestion. CN: no acute focal findings. Muscle tone: within normal. Muscle strength: 5 DTR: 1-2 Plantar reflex: Neutral response bilaterally Gait: not examined in bed. Sensory exam: seemed mildly decreased in left UE. No abnormal findings in right UE and LE. No acute cerebellar signs elicited. F-T-N test fine. Objective Objective Vital Signs Date Time Temp Pulse Resp B/P (MAP) Pulse Ox O2 Delivery O2 Flow Rate FiO2 03/16/17 12:17 60 123/71 03/16/17 11:00 98.4 16 96 Room Air 98.4 Vitals Signs Vitals VS - Last 72 Hours, by Label Date Time Temp Pulse Resp B/P (MAP) Pulse Ox O2 Delivery O2 Flow Rate FiO2 03/16/17 12:17 60 123/71 03/16/17 11:00 98.4 60 16 123/71 (88) 96 Room Air 98.4 03/16/17 08:00 Room Air 03/16/17 07:00 98.2 61 18 124/74 (91) 95 Room Air 98.2 03/16/17 03:30 70 18 137/89 (105) 95 Room Air 03/15/17 23:06 97.8 59 20 169/85 (113) 96 Room Air 97.8 03/15/17 21:00 Room Air 03/15/17 20:55 97.8 57 18 160/79 (106) 96 Room Air 97.8 03/15/17 19:49 58 16 143/67 (92) 97 Room Air 03/15/17 19:09 56 16 176/89 (118) 97 Room Air 03/15/17 18:49 56 16 168/81 (110) 03/15/17 18:29 56 18 171/84 (113) 93 Room Air 03/15/17 17:49 60 16 163/83 (109) 97 Room Air 03/15/17 16:40 97.9 58 16 148/90 (109) 97 Room Air 97.9 Laboratory Laboratory Laboratory Tests Test 03/15/17 17:45 03/15/17 18:09 03/15/17 23:02 03/16/17 04:00 White Blood Count 8.0 x10^3/uL (4.0-11.0) 6.7 x10^3/uL (4.0-11.0) Red Blood Count 4.70 x10^6/uL (4.30-5.70) 4.45 x10^6/uL (4.30-5.70) Hemoglobin 14.0 g/dL (13.0-17.5) 13.2 g/dL (13.0-17.5) Hematocrit 43.0 % (39.0-53.0) 40.8 % (39.0-53.0) Mean Corpuscular Volume 92 fL (79-100) 92 fL (79-100) Mean Corpuscular Hemoglobin 30 pg (25-35) 30 pg (25-35) Mean Corpuscular Hemoglobin Concent 33 g/dL (31-37) 32 g/dL (31-37) Red Cell Distribution Width 15.0 % (11.5-14.5) 15.5 % (11.5-14.5) Platelet Count 220 x10^3/uL (140-400) 207 x10^3/uL (140-400) Neutrophils (%) (Auto) 56 % (31-73) 44 % (31-73) Lymphocytes (%) (Auto) 37 % (24-48) 46 % (24-48) Monocytes (%) (Auto) 6 % (0-9) 7 % (0-9) Eosinophils (%) (Auto) 1 % (0-3) 2 % (0-3) Basophils (%) (Auto) 1 % (0-3) 1 % (0-3) Neutrophils # (Auto) 4.4 x10^3uL (1.8-7.7) 3.0 x10^3uL (1.8-7.7) Lymphocytes # (Auto) 2.9 x10^3/uL (1.0-4.8) 3.1 x10^3/uL (1.0-4.8) Monocytes # (Auto) 0.5 x10^3/uL (0.0-1.1) 0.4 x10^3/uL (0.0-1.1) Eosinophils # (Auto) 0.0 x10^3/uL (0.0-0.7) 0.1 x10^3/uL (0.0-0.7) Basophils # (Auto) 0.1 x10^3/uL (0.0-0.2) 0.1 x10^3/uL (0.0-0.2) Sodium Level 143 mmol/L (136-145) 143 mmol/L (136-145) Potassium Level 3.9 mmol/L (3.5-5.1) 3.6 mmol/L (3.5-5.1) Chloride Level 105 mmol/L (98-107) 107 mmol/L (98-107) Carbon Dioxide Level 29 mmol/L (21-32) 27 mmol/L (21-32) Anion Gap 9 (6-14) 9 (6-14) Blood Urea Nitrogen 16 mg/dL (8-26) 14 mg/dL (8-26) Creatinine 1.6 mg/dL (0.7-1.3) 1.2 mg/dL (0.7-1.3) Estimated GFR (Cockcroft-Gault) 50.8 70.9 Glucose Level 102 mg/dL (70-99) 98 mg/dL (70-99) Lactic Acid Level 1.3 mmol/L (0.4-2.0) Calcium Level 9.7 mg/dL (8.5-10.1) 9.0 mg/dL (8.5-10.1) Total Bilirubin 0.5 mg/dL (0.2-1.0) Direct Bilirubin 0.1 mg/dL (0.0-0.2) Aspartate Amino Transf (AST/SGOT) 19 U/L (15-37) Alanine Aminotransferase (ALT/SGPT) 20 U/L (16-63) Alkaline Phosphatase 47 U/L (46-116) Troponin I Quantitative < 0.017 ng/mL (0.000-0.055) QX-Zfm-[id number]-Type Natriuretic Peptide 35 pg/mL (0-449) Total Protein 7.7 g/dL (6.4-8.2) Albumin 4.2 g/dL (3.4-5.0) Lipase 142 U/L (73-393) Vitamin B12 Level 459 pg/mL (247-911) Thyroid Stimulating Hormone (TSH) 1.896 uIU/mL (0.358-3.74) Urine Collection Type Unknown Urine Color Yellow Urine Clarity Clear Urine pH 5.5 Urine Specific [place] 1.015 Urine Protein Negative mg/dL (NEG-TRACE) Urine Glucose (UA) Negative mg/dL (NEG) Urine Ketones (Stick) Negative mg/dL (NEG) Urine Blood Negative (NEG) Urine Nitrite Negative (NEG) Urine Bilirubin Negative (NEG) Urine Urobilinogen Dipstick 0.2 mg/dL (0.2 mg/dL) Urine Leukocyte Esterase Small (NEG) Urine RBC Occ /HPF (0-2) Urine WBC 5-10 /HPF (0-4) Urine Squamous Epithelial Cells Few /LPF Urine Bacteria 0 /HPF (0-FEW) Urine Hyaline Casts Few /HPF Urine Mucus Slight /LPF Urine Opiates Screen Pos (NEG) Urine Methadone Screen Neg (NEG) Urine Barbiturates Neg (NEG) Urine Phencyclidine Screen Neg (NEG) Urine Amphetamine/Methamphetamine Neg (NEG) Urine Benzodiazepines Screen Neg (NEG) Urine Cocaine Screen Neg (NEG) Urine Cannabinoids Screen Neg (NEG) Urine Ethyl Alcohol Neg (NEG) Glucose (Fingerstick) 155 mg/dL (70-99) Triglycerides Level 89 mg/dL (0-150) Cholesterol Level 155 mg/dL (0-200) LDL Cholesterol, Calculated 94 mg/dL (0-100) VLDL Cholesterol, Calculated 18 mg/dL (0-40) Non-HDL Cholesterol Calculated 112 mg/dL (0-129) HDL Cholesterol 43 mg/dL (40-60) Cholesterol/HDL Ratio 3.6 Test 03/16/17 07:06 03/16/17 11:23 Glucose (Fingerstick) 126 mg/dL (70-99) 156 mg/dL (70-99) Microbiology 03/15/17 Urine Culture - Preliminary, Resulted 03/15/17 Urine Culture Result 1 (HAMLET) - Preliminary, Resulted Medication Medications Current Medications Acetaminophen/ Hydrocodone Bitart (Lortab 7.5/325) 1 tab PRN Q8HRS PRN PO PAIN ; Start 03/16/17 at 09:00; Stop 03/16/17 at 13:56; Status DC Aspirin (Derik Aspirin) 325 mg DAILYWBKFT PO Last administered on 03/16/17t 08: 54; Start 03/16/17 at 08:00; Stop 03/16/17 at 13:56; Status DC Aspirin (Derik Aspirin) 325 mg DAILYWBKFT PO ; Start 03/16/17 at 09:00; Status Cancel Hydrochlorothiazide (Hydrodiuril) 25 mg DAILY PO Last administered on 12:16; Start 03/16/17 at 10:00; Stop 03/16/17 at 13:56; Status DC Insulin Aspart (NovoLOG) 7 units TIDWMEALS SQ Last administered on 03/16/17 12 :21; Start 03/16/17 at 12:00; Stop 03/16/17 at 13:56; Status DC Losartan Potassium (Cozaar) 100 mg DAILY PO Last administered on 03/16/17 12: 17; Start 03/16/17 at 10:00; Stop 03/16/17 at 13:56; Status DC Morphine Sulfate 2 mg PRN Q2HR PRN IV PAIN; Start 03/15/17 at 19:30; Stop 03/16 at 13:56; Status DC Ondansetron HCl (Zofran) 4 mg PRN Q8HRS PRN IV NAUSEA/VOMITING; Start 03/15/17 at 19:30; Stop 03/16/17 at 13:56; Status DC Simvastatin (Zocor) 20 mg QHS PO ; Start 03/16/17 at 21:00; Stop 03/16/17 at 21: 00; Status DC Sodium Chloride 1,000 ml @ 125 mls/hr Q8H IV Last administered on 03/16/17 08 :55; Start 03/15/17 at 19:30; Stop 03/16/17 at 13:56; Status DC Tamsulosin HCl (Flomax) 0.4 mg DAILY PO Last administered on 03/16/17 12:16; Start 03/16/17 at 09:00; Stop 03/16/17 at 13:56; Status DC Comment Review of Relevant I have reviewed the following items antoni (where applicable) has been applied. ÁLVARO NUÑEZ MD March 16, 2017 15:45
[2017-03-16] MEDS ORDERED: SIMVASTATIN 20 MG TABLET PO SCH (21:00)
--- NOTE | 2017-03-17 02:11 | CONS ---
DATE OF CONSULTATION: 03/16/2017 REASON FOR CONSULTATION: Cervical stenosis. HISTORY OF PRESENT ILLNESS: The patient is a pleasant 76-year-old gentleman who reports that a couple days ago, he was sitting and watching TV when he developed increased numbness involving the left hand and left wrist. He also had difficulty with weakness in the left hand, reporting that he was unable to extend his wrist. There was a concern for stroke, so he was brought to the Emergency Department for further evaluation. Since that time, he reports that his strength has essentially returned to normal and reports significant improvement in the paresthesia. He reports intermittent tingling, isolated to the left wrist. He denies any radicular type pain. He denies any more proximal numbness or paresthesias. Denies any bowel or bladder changes or focal weakness at the present time. He denies any injuries or falls. Imaging was acquired including a cranial imaging, which was negative and cervical imaging, which revealed cervical stenosis for which Neurosurgery is consulted. PAST MEDICAL HISTORY: Includes osteoarthritis, hyperlipidemia, hypertension, diabetes. He has a history of transient ischemic attack in the past. PAST SURGICAL HISTORY: Denies. FAMILY HISTORY: Positive for CVA and diabetes. SOCIAL HISTORY: The patient is . He denies use of tobacco or alcohol at this time. REVIEW OF SYSTEMS: He denies any significant changes in weight, fevers, nausea. He denies any bruising, rashes, hair changes. He denies visual disturbance. He denies any malaise, nosebleeds, hoarseness of voice or sore throat. He denies any palpitations, chest pain, shortness of breath. Denies coughing or wheezing. He denies any changes in appetite, nausea, vomiting, diarrhea or constipation or other changes in bowel or bladder function. He denies any anxiety or depression. Denies any heat or cold intolerance. He reports essential resolution of the aforementioned weakness. Denies significant joint pain or stiffness. A 10-point review of systems otherwise negative except for the aforementioned. PHYSICAL EXAMINATION: VITAL SIGNS: His temperature is 98.4 degrees Fahrenheit, pulse 60, respirations 16, blood pressure 123/71, his O2 sat is 96% on room air. GENERAL: He is awake, alert and oriented x 4. He is in no acute distress. NEUROLOGIC: His speech is fluent. He has an appropriate affect. HEENT: His head is normocephalic without evidence of trauma. NECK: Supple, nontender. CHEST: Respirations are even and nonlabored. Pulse is regular. ABDOMEN: Soft and nontender. EXTREMITIES: He has no cyanosis, clubbing or edema. There is a right large toe amputation noted. SKIN: Warm and dry with good turgor. NEUROLOGICAL: He is awake and alert. Cranial nerves 2 through 12 are intact bilaterally. Strength is 5/5 throughout all major muscle groups in his bilateral upper and bilateral lower extremities. Deep tendon reflexes are 1/4 and symmetric. Plantars are equivocal bilaterally. Sensation is intact to light touch. Cerebellar function is intact bilaterally. MEDICATIONS: Current medications include Zocor, NovoLog, hydrochlorothiazide, Cozaar, Flomax, Lortab and aspirin. ALLERGIES: He has no known drug allergies. RADIOLOGY: There is an MRI of the brain without contrast from 03/15/2017. There is no evidence of recent infarct or intracranial mass effect. There are nonspecific T2/FLAIR hyperintense signal abnormalities in the supratentorial white matter, likely related to chronic microvascular ischemic disease. No other acute findings are identified. There is an MRI of the cervical spine without contrast showing diffuse degenerative changes, the most prominent findings at C3-C4 where there is a disk osteophyte complex producing moderate mass effect on the anterior cord. The cord signal appears to be normal. There is mild stenosis at C4-C5 as well, but this is less severe. No fractures or other signal abnormalities are identified. ASSESSMENT AND PLAN: This is a 76-year-old gentleman who experienced transient left hand numbness and weakness, which is now essentially resolved. He has cervical spondylosis with cervical stenosis, most prominent at cervical 3-4. The imaging findings and therapeutic options were discussed with the patient. At this time, as his symptoms have essentially resolved and he appears to be neurologically intact, it is recommended that he be monitored for any recurrent neurological symptoms in light of the stenosis. Based on his present markedly improved physical exam, surgical intervention to the cervical spine is not recommended at the present time; however, symptoms of neurological decline were discussed in detail with the patient and family and they expressed understanding and will notify us should any such changes occur. From a Neurosurgery standpoint, may discharge when he otherwise meets medical criteria at the discretion of the primary team. He may follow up as needed should any symptoms attributable to the stenosis occur. All questions answered. All in agreement. RACHEL ZULETA MD DR: JALEESA/mara JOB#: [id number] / [id number]
== END 2017-03-16 13:15 | disposition home or self-care (01) ==
LOC: ER 16:14 → INTOOBSV 19:37 → 4 NORTH 19:37
PROVIDERS: ADMIT Internal Medicine; ATTEND Internal Medicine
DX: I69.354 Hemiplegia and hemiparesis following cerebral infarction affecting left non-dominant side (principal); M48.02 Spinal stenosis, cervical region; M47.892 Other spondylosis, cervical region; M19.90 Unspecified osteoarthritis, unspecified site; E78.5 Hyperlipidemia, unspecified; I10 Essential (primary) hypertension; E11.9 Type 2 diabetes mellitus without complications; G31.89 Other specified degenerative diseases of nervous system; F17.210 Nicotine dependence, cigarettes, uncomplicated; E78.00 Pure hypercholesterolemia, unspecified; Z82.3 Family history of stroke; Z83.3 Family history of diabetes mellitus; Z89.411 Acquired absence of right great toe; Z87.438 Personal history of other diseases of male genital organs
CPT/HCPCS: 36415; 70450; 70551; 71010; 72141; 80048; 80061; 80076; 81001; 82607; 82962; 83605; 83690; 83880; 84443; 84484; 85027; 87086; 93005; 93880; 96360; 96361; 96372; 99285; G0378; G0481; J1815; J7030; G0379

== ENCOUNTER 2018-03-30 12:02 | Emergency (ER) | payer BC ==
[2018-03-30] MEDS: CYCLOBENZAPRINE 10 MG TABLET. PO (13:10)
[2018-03-30] MEDS: HYDROcodone/APAP 5/325MG 1 TAB TABLET PO (13:10)
== END 2018-03-30 13:49 | disposition home or self-care (01) ==
LOC: ER 12:02
DX: M54.5 Low back pain (principal); E11.9 Type 2 diabetes mellitus without complications; E78.00 Pure hypercholesterolemia, unspecified; I10 Essential (primary) hypertension
CPT/HCPCS: 99283

== ENCOUNTER 2019-02-12 15:10 | Inpatient (IN) | payer BC, MEDICARE ==
[~2019-02-12] VITALS: Ht 175.3 cm; Wt 80.3 kg
[~2019-02-12 15:10] MED LIST changes: -ASPI325T4 PO; +ASPI325T8 PO; +CYCL10TA2 PO; -HYDR-2762 PO; +HYDR-2765 PO; +HYDR-3164 PO; +OLME1TAB25 PO; -OLME1TAB5 PO
[2019-02-12] MEDS ORDERED: ACETAMINOPHEN 325 MG TABLET. PO ONE (15:30)
--- NOTE | 2019-02-12 15:41 | PHYS DOC ---
Past Medical History Past Medical History: Diabetes-Type II, High Cholesterol, Hypertension, Other Additional Past Medical Histor: enlarged prostate (IBETH SNOW) Past Surgical History: No Surgical History (IBETH SNOW) Alcohol Use: None Drug Use: None (IBETH SNOW) Adult General Chief Complaint Chief Complaint: ALTERED MENTAL STATUS HPI HPI Patient is a 78 year AA male who is brought in by private vehicle by his fa lorraine. They report cough, weakness and not feeling well since Sunday (3 days ago) but today he laid down for a nap at 1:15 and when he awoke he had slurred speech and was confused. Last known normal was at 1:15pm. Pt has no hx of CVA. He does have HTN. Pt is noted on arrival to have a horrible sounding cough and is febrile on arrival. On arrival he is answering my questions appropriately but is noted to be weak. His L leg is weaker then the R. He has a mild droop of his L mouth, but some what difficult to visualize because he has had a prior surgical repair to his lower left lip. He is noted to have slurred speech. He is off balance with gait. Pt tells me that he is 78 yo (correct) but states that it is October and that Fidel is president. He then said "no, it's not Parra, its Day". Complicating things further, pt had cataracts surgery on B eyes on the 15th of this month and per family has been weak and not doing well since that time. He actually had a follow up visit with the eye doctor today prior to coming home and laying down for a nap. Code stroke activated after initial assessment and pt taken over for CT head. Dr. Tim in to see pt as well. Dr. Howard was contacted from ER after CT head neg. She recommended MRI. We obtained MRI with/without contrast which was also neg for acute stroke findings. Pt was given IV fluids and abx with concern for possible pneumonia on arrival. He was given nebulizer treatment, tylenol for fever and ASA after CT head neg for bleed. Pt will be admitted for IV abx and fluids and further evaluation. A urine was not collected while in ER since he was unable to go. Dr. Howard down to see pt here in ER and recommended a consult with ID, this was placed. (IBETH SNOW) Review of Systems Review of Systems Constitutional: Reports fever Eyes: Reports blurry vision B, red irritated eyes B. HENT: Denies nasal congestion. Reports sore throat. Respiratory: Reports cough, shortness of breath. Cardiovascular: Denies chest pain. GI: Denies abdominal pain, nausea, vomiting, bloody stools or diarrhea : Denies dysuria or hematuria Musculoskeletal: Denies back pain or joint pain Integument: Denies rash or skin lesions Neurologic: Denies headache. Reports weakness, slurred speech, confusion. Endocrine: Denies polyuria or polydipsia All other systems were reviewed and found to be within normal limits, except as documented in this note. (IBETH SNOW) Current Medications Current Medications Current Medications Medications (Trade) Dose Ordered Sig/Scotty Start Time Stop Time Status Last Admin Dose Admin Acetaminophen (Tylenol) 650 mg 1X ONCE 02/12/19 15:30 02/12/19 15:35 DC 02/12/19 16:36 650 MG Albuterol Sulfate (Ventolin Neb Soln) 2.5 mg 1X ONCE 02/12/19 16:00 02/12/19 16:01 DC 02/12/19 16:27 2.5 MG Aspirin (Derik Aspirin) 325 mg 1X ONCE 02/12/19 16:15 02/12/19 16:16 DC 02/12/19 16:34 325 MG Azithromycin 250 ml @ 250 mls/hr 1X ONCE 02/12/19 16:15 02/12/19 17:14 DC 02/12/19 17:37 250 MLS/HR Ceftriaxone Sodium (Rocephin) 1 gm 1X ONCE 02/12/19 16:15 02/12/19 16:16 DC 02/12/19 17:37 1 GM Gadobutrol (Gadavist) 9 mmol 1X ONCE 02/12/19 17:00 02/12/19 17:03 DC 02/12/19 17:07 9 MMOL Sodium Chloride 1,000 ml @ 1,000 mls/hr 1X ONCE 02/12/19 16:15 02/12/19 17:14 DC 02/12/19 16:19 1,000 MLS/HR (LINDSAY TIM MD) Allergies Allergies Allergies Coded Allergies Type Severity Reaction Last Updated Verified No Known Drug Allergies 12/15/16 No (LINDSAY TIM MD) Physical Exam Physical Exam Constitutional:Well developed AA male in no acute distress. He is hot to touch, he denies pain. HENT: Normocephalic, atraumatic, bilateral external ears normal, oropharynx moist, no oral exudates, nose normal. Prior surgery on lower L mouth, scars present. Eyes: PERRLA, EOMI, conjunctiva injected B, recent cataracts surgery. Neck: Normal range of motion, no tenderness, supple, no stridor. Cardiovascular:Heart rate regular rhythm, no murmur Lungs & Thorax: Bilateral breath sounds coarse and wheezy. Hard cough noted. Abdomen: Bowel sounds normal, soft, no tenderness, no masses, no pulsatile masses. Skin: Warm, dry, no erythema, no rash. Back: No tenderness, no CVA tenderness. Extremities: No tenderness, no cyanosis, no clubbing, ROM intact, no edema. Neurologic: Alert, oriented to name and place, confused about time. Pt states it is October and that Parra is president. Pt has L leg drift on exam, slurred speech and subtle L sided facial droop. Psychologic: Affect normal, judgement normal, mood normal. (IBETH SNOW) Current Patient Data Vital Signs Vital Signs Date Time Temp Pulse Resp B/P (MAP) Pulse Ox O2 Delivery O2 Flow Rate FiO2 02/12/19 17:53 92 02/12/19 17:43 92 02/12/19 17:35 101.1 101.1 02/12/19 16:29 35 02/12/19 16:27 Room Air 02/12/19 15:18 139/89 (106) (LINDSAY TIM MD) Lab Values Laboratory Tests Test 02/12/19 15:29 02/12/19 15:45 02/12/19 16:20 Glucose (Fingerstick) 202 mg/dL (70-99) H White Blood Count 6.8 x10^3/uL (4.0-11.0) Red Blood Count 4.54 x10^6/uL (4.30-5.70) Hemoglobin 13.5 g/dL (13.0-17.5) Hematocrit 41.6 % (39.0-53.0) Mean Corpuscular Volume 92 fL (79-100) Mean Corpuscular Hemoglobin 30 pg (25-35) Mean Corpuscular Hemoglobin Concent 33 g/dL (31-37) Red Cell Distribution Width 14.7 % (11.5-14.5) H Platelet Count 207 x10^3/uL (140-400) Neutrophils (%) (Auto) 71 % (31-73) Lymphocytes (%) (Auto) 21 % (24-48) L Monocytes (%) (Auto) 7 % (0-9) Eosinophils (%) (Auto) 0 % (0-3) Basophils (%) (Auto) 1 % (0-3) Neutrophils # (Auto) 4.8 x10^3uL (1.8-7.7) Lymphocytes # (Auto) 1.5 x10^3/uL (1.0-4.8) Monocytes # (Auto) 0.5 x10^3/uL (0.0-1.1) Eosinophils # (Auto) 0.0 x10^3/uL (0.0-0.7) Basophils # (Auto) 0.0 x10^3/uL (0.0-0.2) Prothrombin Time 14.4 SEC (11.7-14.0) H Prothrombin Time INR 1.2 (0.8-1.1) H PTT 40 SEC (24-38) H Sodium Level 140 mmol/L (136-145) Potassium Level 3.5 mmol/L (3.5-5.1) Chloride Level 104 mmol/L (98-107) Carbon Dioxide Level 29 mmol/L (21-32) Anion Gap 7 (6-14) Blood Urea Nitrogen 14 mg/dL (8-26) Creatinine 1.6 mg/dL (0.7-1.3) H Estimated GFR (Cockcroft-Gault) 50.6 BUN/Creatinine Ratio 9 (6-20) Glucose Level 101 mg/dL (70-99) H Lactic Acid Level 1.7 mmol/L (0.4-2.0) Calcium Level 9.2 mg/dL (8.5-10.1) Total Bilirubin 0.6 mg/dL (0.2-1.0) Aspartate Amino Transferase (AST) 24 U/L (15-37) Alanine Aminotransferase (ALT) 14 U/L (16-63) L Alkaline Phosphatase 41 U/L (46-116) L Creatine Kinase 718 U/L (39-308) H Creatine Kinase MB (Mass) 0.7 ng/mL (0.0-3.6) Creatine Kinase MB Relative Index 0.1 % (0-4) Troponin I Quantitative < 0.017 ng/mL (0.000-0.055) KS-Uvw-H-Type Natriuretic Peptide 276 pg/mL (0-449) Total Protein 8.2 g/dL (6.4-8.2) Albumin 3.7 g/dL (3.4-5.0) Albumin/Globulin Ratio 0.8 (1.0-1.7) L Vitamin B12 Level 260 pg/mL (247-911) Thyroid Stimulating Hormone (TSH) 1.124 uIU/mL (0.358-3.74) Influenza Type A Antigen Negative (NEGATIVE) Influenza Type B Antigen Negative (NEGATIVE) Laboratory Tests 02/12/19 15:45 Laboratory Tests 02/12/19 15:45 (LINDSAY TIM MD) Lab Values Laboratory Tests Test 02/12/19 15:29 02/12/19 15:45 02/12/19 16:20 Glucose (Fingerstick) 202 mg/dL (70-99) H White Blood Count 6.8 x10^3/uL (4.0-11.0) Red Blood Count 4.54 x10^6/uL (4.30-5.70) Hemoglobin 13.5 g/dL (13.0-17.5) Hematocrit 41.6 % (39.0-53.0) Mean Corpuscular Volume 92 fL (79-100) Mean Corpuscular Hemoglobin 30 pg (25-35) Mean Corpuscular Hemoglobin Concent 33 g/dL (31-37) Red Cell Distribution Width 14.7 % (11.5-14.5) H Platelet Count 207 x10^3/uL (140-400) Neutrophils (%) (Auto) 71 % (31-73) Lymphocytes (%) (Auto) 21 % (24-48) L Monocytes (%) (Auto) 7 % (0-9) Eosinophils (%) (Auto) 0 % (0-3) Basophils (%) (Auto) 1 % (0-3) Neutrophils # (Auto) 4.8 x10^3uL (1.8-7.7) Lymphocytes # (Auto) 1.5 x10^3/uL (1.0-4.8) Monocytes # (Auto) 0.5 x10^3/uL (0.0-1.1) Eosinophils # (Auto) 0.0 x10^3/uL (0.0-0.7) Basophils # (Auto) 0.0 x10^3/uL (0.0-0.2) Prothrombin Time 14.4 SEC (11.7-14.0) H Prothrombin Time INR 1.2 (0.8-1.1) H PTT 40 SEC (24-38) H Sodium Level 140 mmol/L (136-145) Potassium Level 3.5 mmol/L (3.5-5.1) Chloride Level 104 mmol/L (98-107) Carbon Dioxide Level 29 mmol/L (21-32) Anion Gap 7 (6-14) Blood Urea Nitrogen 14 mg/dL (8-26) Creatinine 1.6 mg/dL (0.7-1.3) H Estimated GFR (Cockcroft-Gault) 50.6 BUN/Creatinine Ratio 9 (6-20) Glucose Level 101 mg/dL (70-99) H Lactic Acid Level 1.7 mmol/L (0.4-2.0) Calcium Level 9.2 mg/dL (8.5-10.1) Total Bilirubin 0.6 mg/dL (0.2-1.0) Aspartate Amino Transferase (AST) 24 U/L (15-37) Alanine Aminotransferase (ALT) 14 U/L (16-63) L Alkaline Phosphatase 41 U/L (46-116) L Creatine Kinase 718 U/L (39-308) H Creatine Kinase MB (Mass) 0.7 ng/mL (0.0-3.6) Creatine Kinase MB Relative Index 0.1 % (0-4) Troponin I Quantitative < 0.017 ng/mL (0.000-0.055) SY-Vpr-S-Type Natriuretic Peptide 276 pg/mL (0-449) Total Protein 8.2 g/dL (6.4-8.2) Albumin 3.7 g/dL (3.4-5.0) Albumin/Globulin Ratio 0.8 (1.0-1.7) L Vitamin B12 Level 260 pg/mL (247-911) Thyroid Stimulating Hormone (TSH) 1.124 uIU/mL (0.358-3.74) Influenza Type A Antigen Negative (NEGATIVE) Influenza Type B Antigen Negative (NEGATIVE) Laboratory Tests 02/12/19 15:45 Laboratory Tests 02/12/19 15:45 (IBETH SNOW) EKG EKG NSR, 93 bpm, no STEMI (IBETH SNOW) Radiology/Procedures Radiology/Procedures CXR neg CT head: no acute finding MRI w/wo: no acute finding (IBETH SNOW) Course & Med Decision Making Course & Med Decision Making Pertinent Labs and Imaging studies reviewed. (See chart for details) Unclear etiology for fever and confusion. Will admit for further evaluation. Antibiotics started and consult placed for Anita, neurology and for ID per her request. Pt showing improvement in ER with being more alert, less weak, however did have some hallucinations per nursing staff. Possibly fever induced? Unclear at this time. (IBETH SNOW) Course & Med Decision Making I evaluated the patient at his arrival to ER and agreed to call code stroke. Patient had fever of 101 and left facial weakness and confusion. I agreed with Ibeth Land note and evaluation. Waiting for MRI of brain for decision for the treatment and placement. (LINDSAY TIM MD) Dragon Disclaimer Dragon Disclaimer This electronic medical record was generated, in whole or in part, using a voice recognition dictation system. (IBETH SNOW) Departure Departure Impression: Primary Impression: Confusion Additional Impressions: Fever Upper respiratory infection Disposition: ADMITTED INPATIENT Admitting Physician: Yvonne Goldman (IBETH SNOW) Condition: IMPROVED Referrals: SHANICE KAY (PCP) Problem Qualifiers IBETH SNOW Feb 12, 2019 15:41 LINDSAY TIM MD Feb 12, 2019 17:18
--- NOTE | 2019-02-12 15:46 | RAD ---
Examination: CT CODE STROKE HEAD WO History: WEAKNESS Comparison/Correlation: 03/15/2017 CT head without contrast Findings: Axial images of the head were obtained without contrast. Atrophy is present. Low-attenuation region at the posterior high left parietal region is small in size and unchanged. No evidence of evolving infarct. No intracranial hemorrhage, then shift, or mass effect. Bony structures are unremarkable. Mucosal thickening of ethmoid air cells and maxillary sinuses noted. Impression: No acute process. Consider MRI if clinically warranted and able. On 02/12/2019 at 1542, results were reported to Dr. Peralta. PQRS Compliance Statement: One or more of the following individualized dose reduction techniques were utilized for this examination: 1. Automated exposure control 2. Adjustment of the mA and/or kV according to patient size 3. Use of iterative reconstruction technique Electronically signed by: Romeo Ruvalcaba MD (02/12/2019 3:43 PM) [facility]
--- NOTE | 2019-02-12 15:59 | RAD ---
CHEST AP ONLY Clinical indications: code stroke, cough, fever COMPARISON: March 15, 2017. Findings: No acute lung infiltrate or pleural effusion or pulmonary edema or lung mass or pneumothorax is seen. The heart size, pulmonary vasculature, mediastinum and both naa are unremarkable. Impression: No acute radiographic abnormality is seen. Electronically signed by: eKny Canela MD (02/12/2019 3:56 PM) [facility]
[2019-02-12] MEDS ORDERED: ALBUTEROL SULFATE 2.5 MG/3 ML NEBU. NEB ONE (16:00)
[2019-02-12 16:01] LABS: BASO % 1 % (0-3); EOS % 0 % (0-3); HEMATOCRIT 41.6 % (39.0-53.0); HEMOGLOBIN 13.5 g/dL (13.0-17.5); LYMPH # 1.5 x10^3/uL (1.0-4.8); LYMPH % 21 % (24-48); MEAN CORPUSCULAR HEMOGLOBIN 30 pg (25-35); MEAN CORPUSCULAR HGB CONC 33 g/dL (31-37); MEAN CORPUSCULAR VOLUME 92 fL (79-100); MONO # 0.5 x10^3/uL (0.0-1.1); MONO % 7 % (0-9); NEUT # 4.8 x10^3uL (1.8-7.7); NEUT % 71 % (31-73); PLATELET COUNT 207 x10^3/uL (140-400); RED BLOOD COUNT 4.54 x10^6/uL (4.30-5.70); RED CELL DISTRIBUTION WIDTH 14.7 % (11.5-14.5); WHITE BLOOD COUNT 6.8 x10^3/uL (4.0-11.0)
[2019-02-12 16:12] LABS: CALCIUM 9.2 mg/dL (8.5-10.1); CREATININE 1.6 mg/dL (0.7-1.3); GFR 50.6; POTASSIUM 3.5 mmol/L (3.5-5.1)
[2019-02-12 16:15] LABS: PROTHROMBIN TIME PATIENT 14.4 SEC (11.7-14.0)
[2019-02-12] MEDS ORDERED: ASPIRIN 325 MG TABLET PO ONE (16:15)
[2019-02-12] MEDS ORDERED: cefTRIAXone IV Push 1 GM VIAL. IVP ONE (16:15)
[2019-02-12] MEDS ORDERED: AZITHRMYCN 500MG IVPB FOR OMNI 250 ML IV ONE (16:15)
[2019-02-12] MEDS ORDERED: IV NORMAL SALINE 1000ML BAG 1,000 ML IV ONE (16:15)
[2019-02-12 16:19] LABS: ALBUMIN 3.7 g/dL (3.4-5.0); ALBUMIN/GLOBULIN RATIO 0.8 (1.0-1.7); TOTAL BILIRUBIN 0.6 mg/dL (0.2-1.0); TOTAL PROTEIN 8.2 g/dL (6.4-8.2)
[2019-02-12 16:50] LABS: INFLUENZA A PATIENT NEGATIVE (NEGATIVE); INFLUENZA B PATIENT NEGATIVE (NEGATIVE)
[2019-02-12] MEDS ORDERED: GADOBUTROL 10 MMOL/10 ML VIAL IV ONE (17:00)
--- NOTE | 2019-02-12 17:29 | RAD ---
Brain MRI, With and Without Contrast: History: Stroke symptoms negative CT Technique: Multiplanar and multisequence imaging of the brain was performed, before and after the administration of 9 cc of IV Gadavist contrast. Diffusion weighted sequences were performed. Findings: There is moderate motion artifact and postcontrast imaging. The technologist noted the patient was unable to remain motionless due to coughing fits. There is no mass effect or extraaxial fluid collections. There is no hydrocephalus. There is mild diffuse cerebral atrophy. There is mild patchy white matter signal abnormality in the periventricular and subcortical white matter with high signal on T2 in the low to intermediate signal on T1. Diffusion weighted sequences demonstrate no imaging evidence of acute ischemia. There is no mass. There is no gross bleed. There is no abnormal enhancement. Impression: 1. Mild diffuse age expected atrophy. 2.Mild diffuse white matter disease is nonspecific but likely secondary to chronic small vessel disease. 3. No acute findings. Electronically signed by: Wesley Connors III, MD (02/12/2019 5:26 PM) [facility]
--- NOTE | 2019-02-12 18:45 | PDOC2 ---
NEUROLOGY CONSULT Date of Admission Date of Admission DATE: 02/12/19 TIME: 18:27 Reason for Consult Reason for Consult: IMPRESSION: Left side weakness. Code stroke. Metabolic encephalopathy. Confusion. Fever 101.2 degree. Cough. Generalized weakness. DM. HTN. HLD. Renal failure. No evidence of acute CVA this time. RECOMMENDATIONS/PLAN: MRI stat performed. Lab: see orders. Please consult ID. ASA 81 mg daily. Treat medical diseases. HISTORY OF THE PRESENT ILLNESS: This is an 79-y-old AA male patient with Hx of HTN, DM, HLD. He was last seen mentally normal around 1:15 pm on 02/12/19. He took a nap and woke up about 3:00 pm feeling his left side was weak and not easily get up. He was noted by his family as having mental status changes and confusion as well. He was brought to the ER of [facility] as coded stroke. His was revealed fever of 101.2 degree with cough. Stat MRI was performed which showed no CVA this time. In fact, patient's mental status and left side weakness also improved after IV hydration and fever control and antibiotics. PAST MEDICAL HISTORY: Please see above. PAST SURGERY HISTORY: No major surgery recently. ALLERGY: Unknown MEDICATIONS: Refer to [facility] FAMILY HISTORY: Non contributory. SOCIAL HISTORY: Lives at home. Denies illicit drug use. He smokes 1/2 pack of cigarettes a day for many years. He drinks alcohol a day occasionally. REVIEW OF SYSTEMS: Constitutional: No malnutrition, weight loss, cachexia. Head: No traumatic brain or head injury. Skin: No edema, or rash. Ear: No infection. Eyes: No vision loss or color blindness. Nose: No bleeding or purulent discharges. Hearing: Hearing decrease. Neck: No injury. Cardiac: HTN, HLD. Pulmonary: Smoking.. GI: No GI ulcer, GI bleeding. Urinary/genital: BPH. Endocrinologic: Diabetes Mellitus. Skeletomuscular: No muscular atrophy, deformity. Neurological: see HP. Psychiatric: Denies drug use/abuse. Otherwise, not [id number] review of systems. PHYSICAL EXAMINATION: General appearance is in acute distress. HEENT: Normocephalic and nontraumatic. Eyes, nose, ears, and throat are unremarkable. Neck is supple. No lymphadenopathy. No bruits are heard over the carotid artery. No crepitus. Cardiovascular: S1, S2, regular rate and rhythm. Pulmonary: Clear to auscultation bilaterally. Abdomen: Bowel sounds are positive. Abdomen is soft, nontender, and nondistended. Extremities: No rash, lesions, or edema. No restriction of range of motion NEUROLOGICAL EXAMINATION: Drowsiness. Not fully oriented to time, but knew place and person. PERRL. EOMI. CN: no focal findings. Muscle tone: within normal. Muscle strength: 5- DTR: 2 Plantar reflex: Flexor response bilaterally Gait: not examined while in bed. Sensory exam: no abnormal findings. No cerebellar signs elicited. F-T-N test fine. Current Medications Current Medications Current Medications Acetaminophen (Tylenol) 650 mg 1X ONCE PO Last administered on 02/12/19 16:36; Start 02/12/19 at 15:30; Stop 02/12/19 at 15:35; Status DC Albuterol Sulfate (Ventolin Neb Soln) 2.5 mg 1X ONCE NEB Last administered on 02/12/19 16:27; Start 02/12/19 at 16:00; Stop 02/12/19 at 16:01; Status DC Aspirin (Derik Aspirin) 325 mg 1X ONCE PO Last administered on 02/12/19 16:34; Start 02/12/19 at 16:15; Stop 02/12/19 at 16:16; Status DC Ceftriaxone Sodium (Rocephin) 1 gm 1X ONCE IVP Last administered on 02/12/19 17:37; Start 02/12/19 at 16:15; Stop 02/12/19 at 16:16; Status DC Azithromycin 250 ml @ 250 mls/hr 1X ONCE IV Last administered on 02/12/19at 17:37; Start 02/12/19 at 16:15; Stop 02/12/19 at 17:14; Status DC Sodium Chloride 1,000 ml @ 1,000 mls/hr 1X ONCE IV Last administered on 02/12/19 16:19; Start 02/12/19 at 16:15; Stop 02/12/19 at 17:14; Status DC Gadobutrol (Gadavist) 9 mmol 1X ONCE IV Last administered on 02/12/19 17:07; Start 02/12/19 at 17:00; Stop 02/12/19 at 17:03; Status DC Active Scripts Active Cyclobenzaprine Hcl 10 Mg Tablet 1 Tab PO TID [place] 5-325 Tablet (Acetaminophen/Hydrocodone Bitart) 1 Each Tablet 1 Tab PO Q4- 6HRS Aspirin 325 Mg Tablet 325 Mg PO [id number] Reported Humulin N Kwikpen (Nph, Human Insulin Isophane) 100 Unit/1 Ml Insuln.pen 15-20 Units SQ BID Gave 15 units this morning Take 15 units this evening at bedtime Humalog (Insulin Lispro) 100 Unit/1 Ml Insuln.pen 7 Units SQ TIDWMEALS Gave 7 units with lunch today Take this evening with dinner Simvastatin 20 Mg Tablet 1 Tab PO DAILY Take tonight before bed Hydrocodone-Apap 7.5-325 (Hydrocodone Bit/Acetaminophen) 1 Each Tablet 1-2 Tab PO Q8HRS PRN Not given on this admission Take as needed at home Benicar Hct 40-25 Mg Tablet (Olmesartan/Hydrochlorothiazide) 1 Each Tablet 1 Tab PO DAILY Gave this am Take tomorrow morning Tamsulosin Hcl 0.4 Mg Cap.er.24h 0.4 Mg PO DAILY Gave this morning Take tomorrow morning Allergies Allergies: Allergies Coded Allergies Type Severity Reaction Last Updated Verified No Known Drug Allergies 12/15/16 No ROS Review of System The patient denies any associated fevers, chills, headache, ear pain, rhinorrhea, sore throat, stiff neck, productive cough, chest pain, shortness of breath, back or flank pain, abdominal pain, nausea, vomiting, diarrhea, constipation, dysuria, rash, numbness, weakness, tingling, incontinence, difficulty ambulating, or diaphoresis. Physical Exam Physical Exam General: Well developed, well nourished, no acute distress, well appearing HEENT: Pupils equally round and reactive to light, EOMI, no discharge, normal conjunctiva Neck: Supple, no nuchal rigidity, no JVD, trachea midline, no tenderness Cardiac: RRR, no murmurs, no gallops, no rubs Chest/Lungs: CTAB, no wheeze, no rhonchi, no crackles Abdomen: soft, non-distended, no guarding, no peritoneal signs, non-tender Back: No tenderness Extremities: no edema, pulses intact, non-tender,capillary refill <3 sec bilateral upper and lower extremities, Neuro: Alert and oriented x 4, no focal deficits, normal speech Vitals Vitals: Vital Signs Date Time Temp Pulse Resp B/P (MAP) Pulse Ox O2 Delivery O2 Flow Rate FiO2 02/12/19 17:35 101.1 101.1 02/12/19 16:27 90 Room Air 02/12/19 15:18 106 28 139/89 (106) Labs Labs Laboratory Tests Test 02/12/19 15:29 02/12/19 15:45 02/12/19 16:20 Glucose (Fingerstick) 202 mg/dL (70-99) White Blood Count 6.8 x10^3/uL (4.0-11.0) Red Blood Count 4.54 x10^6/uL (4.30-5.70) Hemoglobin 13.5 g/dL (13.0-17.5) Hematocrit 41.6 % (39.0-53.0) Mean Corpuscular Volume 92 fL (79-100) Mean Corpuscular Hemoglobin 30 pg (25-35) Mean Corpuscular Hemoglobin Concent 33 g/dL (31-37) Red Cell Distribution Width 14.7 % (11.5-14.5) Platelet Count 207 x10^3/uL (140-400) Neutrophils (%) (Auto) 71 % (31-73) Lymphocytes (%) (Auto) 21 % (24-48) Monocytes (%) (Auto) 7 % (0-9) Eosinophils (%) (Auto) 0 % (0-3) Basophils (%) (Auto) 1 % (0-3) Neutrophils # (Auto) 4.8 x10^3uL (1.8-7.7) Lymphocytes # (Auto) 1.5 x10^3/uL (1.0-4.8) Monocytes # (Auto) 0.5 x10^3/uL (0.0-1.1) Eosinophils # (Auto) 0.0 x10^3/uL (0.0-0.7) Basophils # (Auto) 0.0 x10^3/uL (0.0-0.2) Prothrombin Time 14.4 SEC (11.7-14.0) Prothromb Time International Ratio 1.2 (0.8-1.1) Activated Partial Thromboplast Time 40 SEC (24-38) Sodium Level 140 mmol/L (136-145) Potassium Level 3.5 mmol/L (3.5-5.1) Chloride Level 104 mmol/L (98-107) Carbon Dioxide Level 29 mmol/L (21-32) Anion Gap 7 (6-14) Blood Urea Nitrogen 14 mg/dL (8-26) Creatinine 1.6 mg/dL (0.7-1.3) Estimated GFR (Cockcroft-Gault) 50.6 BUN/Creatinine Ratio 9 (6-20) Glucose Level 101 mg/dL (70-99) Lactic Acid Level 1.7 mmol/L (0.4-2.0) Calcium Level 9.2 mg/dL (8.5-10.1) Total Bilirubin 0.6 mg/dL (0.2-1.0) Aspartate Amino Transf (AST/SGOT) 24 U/L (15-37) Alanine Aminotransferase (ALT/SGPT) 14 U/L (16-63) Alkaline Phosphatase 41 U/L (46-116) Creatine Kinase 718 U/L (39-308) Creatine Kinase MB (Mass) 0.7 ng/mL (0.0-3.6) Creatine Kinase MB Relative Index 0.1 % (0-4) Troponin I Quantitative < 0.017 ng/mL (0.000-0.055) QM-Uoq-O-Type Natriuretic Peptide 276 pg/mL (0-449) Total Protein 8.2 g/dL (6.4-8.2) Albumin 3.7 g/dL (3.4-5.0) Albumin/Globulin Ratio 0.8 (1.0-1.7) Influenza Type A Antigen Negative (NEGATIVE) Influenza Type B Antigen Negative (NEGATIVE) Laboratory Tests Test 02/12/19 15:29 02/12/19 15:45 02/12/19 16:20 Glucose (Fingerstick) 202 mg/dL (70-99) White Blood Count 6.8 x10^3/uL (4.0-11.0) Red Blood Count 4.54 x10^6/uL (4.30-5.70) Hemoglobin 13.5 g/dL (13.0-17.5) Hematocrit 41.6 % (39.0-53.0) Mean Corpuscular Volume 92 fL (79-100) Mean Corpuscular Hemoglobin 30 pg (25-35) Mean Corpuscular Hemoglobin Concent 33 g/dL (31-37) Red Cell Distribution Width 14.7 % (11.5-14.5) Platelet Count 207 x10^3/uL (140-400) Neutrophils (%) (Auto) 71 % (31-73) Lymphocytes (%) (Auto) 21 % (24-48) Monocytes (%) (Auto) 7 % (0-9) Eosinophils (%) (Auto) 0 % (0-3) Basophils (%) (Auto) 1 % (0-3) Neutrophils # (Auto) 4.8 x10^3uL (1.8-7.7) Lymphocytes # (Auto) 1.5 x10^3/uL (1.0-4.8) Monocytes # (Auto) 0.5 x10^3/uL (0.0-1.1) Eosinophils # (Auto) 0.0 x10^3/uL (0.0-0.7) Basophils # (Auto) 0.0 x10^3/uL (0.0-0.2) Prothrombin Time 14.4 SEC (11.7-14.0) Prothromb Time International Ratio 1.2 (0.8-1.1) Activated Partial Thromboplast Time 40 SEC (24-38) Sodium Level 140 mmol/L (136-145) Potassium Level 3.5 mmol/L (3.5-5.1) Chloride Level 104 mmol/L (98-107) Carbon Dioxide Level 29 mmol/L (21-32) Anion Gap 7 (6-14) Blood Urea Nitrogen 14 mg/dL (8-26) Creatinine 1.6 mg/dL (0.7-1.3) Estimated GFR (Cockcroft-Gault) 50.6 BUN/Creatinine Ratio 9 (6-20) Glucose Level 101 mg/dL (70-99) Lactic Acid Level 1.7 mmol/L (0.4-2.0) Calcium Level 9.2 mg/dL (8.5-10.1) Total Bilirubin 0.6 mg/dL (0.2-1.0) Aspartate Amino Transf (AST/SGOT) 24 U/L (15-37) Alanine Aminotransferase (ALT/SGPT) 14 U/L (16-63) Alkaline Phosphatase 41 U/L (46-116) Creatine Kinase 718 U/L (39-308) Creatine Kinase MB (Mass) 0.7 ng/mL (0.0-3.6) Creatine Kinase MB Relative Index 0.1 % (0-4) Troponin I Quantitative < 0.017 ng/mL (0.000-0.055) PQ-Xci-A-Type Natriuretic Peptide 276 pg/mL (0-449) Total Protein 8.2 g/dL (6.4-8.2) Albumin 3.7 g/dL (3.4-5.0) Albumin/Globulin Ratio 0.8 (1.0-1.7) Influenza Type A Antigen Negative (NEGATIVE) Influenza Type B Antigen Negative (NEGATIVE) ÁLVARO NUÑEZ MD Feb 12, 2019 18:45
[2019-02-12 20:16] VITALS: BP 152/86
[2019-02-12] MEDS ORDERED: BRIM5DRO3 LEFTEYE (20:45)
[2019-02-12] MEDS ORDERED: ASPI-630 PO (20:45)
[2019-02-12] MEDS ORDERED: LATA2.5D3 EACHEYE (20:45)
[2019-02-12] MEDS ORDERED: PRED5DRO16 EACHEYE (20:45)
[2019-02-12] MEDS ORDERED: METF500T16 PO (20:45)
[2019-02-12] MEDS ORDERED: SIMVASTATIN 20 MG TABLET PO SCH (21:00)
[2019-02-12] MEDS: BRIMONIDINE 0.2% OPHTH SOLUTION 5ML BOTTLE. OS SCH (21:00)
[2019-02-12] MEDS: IV NORMAL SALINE 1000ML BAG 1,000 ML IV SCH (21:18)
[2019-02-12] MEDS: LATANOPROST 0.005% OPHTH SOLUTION 2.5ML BOTTLE. OU SCH (21:51)
[2019-02-12] MEDS: DEXAMETHASONE 0.1% OPHTH SOLUTION 5ML BOTTLE. OU SCH (21:52)
[2019-02-12 22:24] VITALS: BP 130/87
--- NOTE | 2019-02-12 23:13 | HP ---
ADMIT DATE: 02/12/2019 CHIEF COMPLAINT: Mental status change. HISTORY OF PRESENT ILLNESS: The patient is a pleasant 78-year-old male who was brought in by his family. They were concerned he could be having a stroke. He was fine earlier, then he went to sleep, when he woke up had mental status change, he was weak on the left and had some slurred speech. He also has an associated cough and had a fever when he arrived as well. Stroke team was activated, but a stroke workup is negative. It appears that the patient might be septic, but his white count is normal, but he did have a temperature of 101.2 and he was tachycardic when he arrived, although we have now got that down with some fluids and antibiotics. I discussed the case with ER physician. We are going to admit the patient and consult Neurology. PAST MEDICAL HISTORY: Diabetes, hyperlipidemia, hypertension and BPH. ALLERGIES: None. FAMILY HISTORY: Coronary artery disease. SOCIAL HISTORY: Does not drink, smoke or take drugs. MEDICATIONS: Reviewed, please refer to the MRAD. REVIEW OF SYSTEMS: GENERAL: No history of weight change, weakness or fevers. SKIN: No bruising, hair changes or rashes. EYES: No blurred, double or loss of vision. NOSE AND THROAT: No history of nosebleeds, hoarseness or sore throat. HEART: No history of palpitations, chest pain or shortness of breath on exertion. LUNGS: Denies cough, hemoptysis, wheezing or shortness of breath. GASTROINTESTINAL: Denies changes in appetite, nausea, vomiting, diarrhea or constipation. GENITOURINARY: No history of frequency, urgency, hesitancy or nocturia. NEUROLOGIC: Denies history of numbness, tingling, tremor or weakness. PSYCHIATRIC: No history of panic, anxiety or depression. ENDOCRINE: No history of heat or cold intolerance, polyuria or polydipsia. EXTREMITIES: Denies muscle weakness, joint pain, pain on walking or stiffness. PHYSICAL EXAMINATION: VITAL SIGNS: Temperature afebrile, pulse 110, respirations 18, blood pressure is down to 130/87. GENERAL: He is more awake now, his family is present. They are very good support for him. They are very nice. HEART: Distant S1, tachy at times. LUNGS: Slight crackles. ABDOMEN: Soft. EXTREMITIES: Trace edema. SKIN: No rash. ENDOCRINE: No thyromegaly. LYMPHATICS: No cervical nodes. HEMATOPOIETIC: No bruising. PSYCHIATRIC: He is a little confused, but stable. LABORATORY DATA: Troponin is 0. Lactic acid 1.7. Sodium is 140. White count 7, hemoglobin 13 and platelets 207. INR is 1.2. Flu testing is negative. Chest x-ray was essentially negative. CT of the head is negative. MRI of the brain is negative other than expected mild diffuse age changes with white matter changes. ASSESSMENT AND PLAN: Resolving stroke symptoms, suspect a combination of metabolic encephalopathy from early sepsis as he did have a fever and tachycardia. The patient has been admitted. We are giving him IV antibiotics and IV fluids. We consulted Neurology. He is already doing a little better. We will have physical therapy work with him, home meds, frequent labs, DVT prophylaxis and full code. PROGNOSIS: Guarded, but improving. ANIYA GARCIA DO DR: INDRA/mara JOB#: [id number] / [id number]
[2019-02-13 03:35] VITALS: BP 153/90
[2019-02-13 04:51] LABS: BILIRUBIN,URINE NEGATIVE (NEG); CLARITY,URINE CLEAR; COLOR,URINE YELLOW; NITRITE,URINE NEGATIVE (NEG); PH,URINE 5.5; PROTEIN,URINE NEGATIVE (NEG-TRACE)
[2019-02-13 05:06] LABS: BACTERIA,URINE 0 /HPF (0-FEW); RBC,URINE OCC /HPF (0-2)
[2019-02-13 05:07] LABS: HYALINE CASTS, URINE FEW /HPF; SQUAMOUS EPITHELIAL CELL,UR FEW /LPF
[2019-02-13 05:35] LABS: CALCIUM 8.3 mg/dL (8.5-10.1); CREATININE 1.1 mg/dL (0.7-1.3); GFR 77.9; POTASSIUM 3.4 mmol/L (3.5-5.1)
--- NOTE | 2019-02-13 06:14 | EKG ---
[facility] [address] [place] [address] Test Date: 2019-02-12 Test Time: 15:38:19 Pat Name: LAURA SANCHEZ Department: Room: 254 1 Gender: M [employer]: : [id number] Requested By: IBETH SNOW Order Number: [id number] Reading MD: Rashaad Sheets Measurements Intervals [place] Rate: 93 P: 67 WI: 198 QRS: 62 QRSD: 66 T: 86 QT: 352 QTc: 440 Interpretive Statements SINUS RHYTHM NON SPECIFIC T ABNORMALITY BORDERLINE ECG Compared to ECG 03/15/2017 17:37:24 First degree AV block no longer present T-wave abnormality still present Electronically Signed On 02-19-2019 11:40:54 CDT by Rashaad Sheets
[2019-02-13 07:00] VITALS: BP 135/84
--- NOTE | 2019-02-13 07:18 | PDOC ---
Infectious Disease Note Vital Sign Vital Signs Vital Signs Date Time Temp Pulse Resp B/P (MAP) Pulse Ox O2 Delivery O2 Flow Rate FiO2 02/13/19 03:35 99.0 73 16 153/90 (111) 99 Nasal Cannula 2.0 99.0 Labs Lab Laboratory Tests Test 02/12/19 15:29 02/12/19 15:45 02/12/19 16:20 02/12/19 20:33 Glucose (Fingerstick) 202 mg/dL (70-99) 101 mg/dL (70-99) White Blood Count 6.8 x10^3/uL (4.0-11.0) Red Blood Count 4.54 x10^6/uL (4.30-5.70) Hemoglobin 13.5 g/dL (13.0-17.5) Hematocrit 41.6 % (39.0-53.0) Mean Corpuscular Volume 92 fL (79-100) Mean Corpuscular Hemoglobin 30 pg (25-35) Mean Corpuscular Hemoglobin Concent 33 g/dL (31-37) Red Cell Distribution Width 14.7 % (11.5-14.5) Platelet Count 207 x10^3/uL (140-400) Neutrophils (%) (Auto) 71 % (31-73) Lymphocytes (%) (Auto) 21 % (24-48) Monocytes (%) (Auto) 7 % (0-9) Eosinophils (%) (Auto) 0 % (0-3) Basophils (%) (Auto) 1 % (0-3) Neutrophils # (Auto) 4.8 x10^3uL (1.8-7.7) Lymphocytes # (Auto) 1.5 x10^3/uL (1.0-4.8) Monocytes # (Auto) 0.5 x10^3/uL (0.0-1.1) Eosinophils # (Auto) 0.0 x10^3/uL (0.0-0.7) Basophils # (Auto) 0.0 x10^3/uL (0.0-0.2) Prothrombin Time 14.4 SEC (11.7-14.0) Prothromb Time International Ratio 1.2 (0.8-1.1) Activated Partial Thromboplast Time 40 SEC (24-38) Sodium Level 140 mmol/L (136-145) Potassium Level 3.5 mmol/L (3.5-5.1) Chloride Level 104 mmol/L (98-107) Carbon Dioxide Level 29 mmol/L (21-32) Anion Gap 7 (6-14) Blood Urea Nitrogen 14 mg/dL (8-26) Creatinine 1.6 mg/dL (0.7-1.3) Estimated GFR (Cockcroft-Gault) 50.6 BUN/Creatinine Ratio 9 (6-20) Glucose Level 101 mg/dL (70-99) Lactic Acid Level 1.7 mmol/L (0.4-2.0) Calcium Level 9.2 mg/dL (8.5-10.1) Total Bilirubin 0.6 mg/dL (0.2-1.0) Aspartate Amino Transf (AST/SGOT) 24 U/L (15-37) Alanine Aminotransferase (ALT/SGPT) 14 U/L (16-63) Alkaline Phosphatase 41 U/L (46-116) Creatine Kinase 718 U/L (39-308) Creatine Kinase MB (Mass) 0.7 ng/mL (0.0-3.6) Creatine Kinase MB Relative Index 0.1 % (0-4) Troponin I Quantitative < 0.017 ng/mL (0.000-0.055) LK-Qol-P-Type Natriuretic Peptide 276 pg/mL (0-449) Total Protein 8.2 g/dL (6.4-8.2) Albumin 3.7 g/dL (3.4-5.0) Albumin/Globulin Ratio 0.8 (1.0-1.7) Vitamin B12 Level 260 pg/mL (247-911) Thyroid Stimulating Hormone (TSH) 1.124 uIU/mL (0.358-3.74) Influenza Type A Antigen Negative (NEGATIVE) Influenza Type B Antigen Negative (NEGATIVE) Test 02/12/19 22:10 02/13/19 04:39 02/13/19 04:50 Troponin I Quantitative 0.030 ng/mL (0.000-0.055) 0.030 ng/mL (0.000-0.055) Urine Collection Type Unknown Urine Color Yellow Urine Clarity Clear Urine pH 5.5 Urine Specific [place] 1.015 Urine Protein Negative mg/dL (NEG-TRACE) Urine Glucose (UA) Negative mg/dL (NEG) Urine Ketones (Stick) Negative mg/dL (NEG) Urine Blood Trace (NEG) Urine Nitrite Negative (NEG) Urine Bilirubin Negative (NEG) Urine Urobilinogen Dipstick 1.0 mg/dL (0.2 mg/dL) Urine Leukocyte Esterase Small (NEG) Urine RBC Occ /HPF (0-2) Urine WBC 5-10 /HPF (0-4) Urine Squamous Epithelial Cells Few /LPF Urine Bacteria 0 /HPF (0-FEW) Urine Hyaline Casts Few /HPF Urine Mucus Mod /LPF Sodium Level 143 mmol/L (136-145) Potassium Level 3.4 mmol/L (3.5-5.1) Chloride Level 108 mmol/L (98-107) Carbon Dioxide Level 25 mmol/L (21-32) Anion Gap 10 (6-14) Blood Urea Nitrogen 11 mg/dL (8-26) Creatinine 1.1 mg/dL (0.7-1.3) Estimated GFR (Cockcroft-Gault) 77.9 Glucose Level 93 mg/dL (70-99) Calcium Level 8.3 mg/dL (8.5-10.1) Triglycerides Level 60 mg/dL (0-150) Cholesterol Level 96 mg/dL (0-200) LDL Cholesterol, Calculated 52 mg/dL (0-100) VLDL Cholesterol, Calculated 12 mg/dL (0-40) Non-HDL Cholesterol Calculated 64 mg/dL (0-129) HDL Cholesterol 32 mg/dL (40-60) Cholesterol/HDL Ratio 3.0 Procalcitonin 0.10 ng/mL (0.00-0.10) Objective Assessment Fever Cough Encephalopathy - ? TIA - as greatly improved THIERNO - improved DM Plan Plan of Care Cont Rocephin/Azithromycin for now F/u labs and cults D/w and nursing Thank you # [phone] MAGDALENE DANIELS MD Feb 13, 2019 07:18
[2019-02-13] MEDS ORDERED: DEXTROSE 50% 25 GM / 50ML DISP.SYRIN. IV PRN (08:30)
[2019-02-13] MEDS ORDERED: ACETAMINOPHEN 500 MG TABLET PO PRN (08:30)
[2019-02-13] MEDS ORDERED: ONDANSETRON PF 4 MG/2 ML VIAL. IV PRN (08:30)
--- NOTE | 2019-02-13 09:43 | PDOC ---
PROGRESS NOTES Chief Complaint Chief Complaint Encephalopathy in the background of fevers resolved AK I resolved TIA versus reversible ischemic syndrome, neg CVA in MRI Mild hypokalemia Flu negative History of Present Illness History of Present Illness He is feeling better He walked with physical therapy - I witnessed He claims they went out Sunday - then by Sunday night he felt ill, coughing and fevers which did not get better MRI negative for stroke and I have provided copies Chest x-ray negative Flu negative Mild potassium low 3.4 Plan: replace potassium, PT OT again tomorrow I believe neurology has ordered some tests If does well today then home tomorrow Vitals Vitals Vital Signs Date Time Temp Pulse Resp B/P (MAP) Pulse Ox O2 Delivery O2 Flow Rate FiO2 02/13/19 07:00 98.7 76 18 135/84 (101) 96 Nasal Cannula 2.0 98.7 Physical Exam General: Alert, Oriented X3, Cooperative, No acute distress Heart: Regular rate, Normal S1, Normal S2, No murmurs Lungs: Clear Abdomen: Normal bowel sounds, Soft, No tenderness, No hepatosplenomegaly Extremities: No clubbing, No cyanosis, No edema, Normal pulses Skin: No rashes, No breakdown, No significant lesion Labs LABS Laboratory Tests Test 02/12/19 15:29 02/12/19 15:45 02/12/19 16:20 02/12/19 20:33 Glucose (Fingerstick) 202 mg/dL (70-99) 101 mg/dL (70-99) White Blood Count 6.8 x10^3/uL (4.0-11.0) Red Blood Count 4.54 x10^6/uL (4.30-5.70) Hemoglobin 13.5 g/dL (13.0-17.5) Hematocrit 41.6 % (39.0-53.0) Mean Corpuscular Volume 92 fL (79-100) Mean Corpuscular Hemoglobin 30 pg (25-35) Mean Corpuscular Hemoglobin Concent 33 g/dL (31-37) Red Cell Distribution Width 14.7 % (11.5-14.5) Platelet Count 207 x10^3/uL (140-400) Neutrophils (%) (Auto) 71 % (31-73) Lymphocytes (%) (Auto) 21 % (24-48) Monocytes (%) (Auto) 7 % (0-9) Eosinophils (%) (Auto) 0 % (0-3) Basophils (%) (Auto) 1 % (0-3) Neutrophils # (Auto) 4.8 x10^3uL (1.8-7.7) Lymphocytes # (Auto) 1.5 x10^3/uL (1.0-4.8) Monocytes # (Auto) 0.5 x10^3/uL (0.0-1.1) Eosinophils # (Auto) 0.0 x10^3/uL (0.0-0.7) Basophils # (Auto) 0.0 x10^3/uL (0.0-0.2) Prothrombin Time 14.4 SEC (11.7-14.0) Prothromb Time International Ratio 1.2 (0.8-1.1) Activated Partial Thromboplast Time 40 SEC (24-38) Sodium Level 140 mmol/L (136-145) Potassium Level 3.5 mmol/L (3.5-5.1) Chloride Level 104 mmol/L (98-107) Carbon Dioxide Level 29 mmol/L (21-32) Anion Gap 7 (6-14) Blood Urea Nitrogen 14 mg/dL (8-26) Creatinine 1.6 mg/dL (0.7-1.3) Estimated GFR (Cockcroft-Gault) 50.6 BUN/Creatinine Ratio 9 (6-20) Glucose Level 101 mg/dL (70-99) Lactic Acid Level 1.7 mmol/L (0.4-2.0) Calcium Level 9.2 mg/dL (8.5-10.1) Total Bilirubin 0.6 mg/dL (0.2-1.0) Aspartate Amino Transf (AST/SGOT) 24 U/L (15-37) Alanine Aminotransferase (ALT/SGPT) 14 U/L (16-63) Alkaline Phosphatase 41 U/L (46-116) Creatine Kinase 718 U/L (39-308) Creatine Kinase MB (Mass) 0.7 ng/mL (0.0-3.6) Creatine Kinase MB Relative Index 0.1 % (0-4) Troponin I Quantitative < 0.017 ng/mL (0.000-0.055) TG-[id number]-Type Natriuretic Peptide 276 pg/mL (0-449) Total Protein 8.2 g/dL (6.4-8.2) Albumin 3.7 g/dL (3.4-5.0) Albumin/Globulin Ratio 0.8 (1.0-1.7) Vitamin B12 Level 260 pg/mL (247-911) Thyroid Stimulating Hormone (TSH) 1.124 uIU/mL (0.358-3.74) Influenza Type A Antigen Negative (NEGATIVE) Influenza Type B Antigen Negative (NEGATIVE) Test 02/12/19 22:10 02/13/19 04:39 02/13/19 04:50 02/13/19 07:30 Troponin I Quantitative 0.030 ng/mL (0.000-0.055) 0.030 ng/mL (0.000-0.055) Urine Collection Type Unknown Urine Color Yellow Urine Clarity Clear Urine pH 5.5 Urine Specific [place]acon 1.015 Urine Protein Negative mg/dL (NEG-TRACE) Urine Glucose (UA) Negative mg/dL (NEG) Urine Ketones (Stick) Negative mg/dL (NEG) Urine Blood Trace (NEG) Urine Nitrite Negative (NEG) Urine Bilirubin Negative (NEG) Urine Urobilinogen Dipstick 1.0 mg/dL (0.2 mg/dL) Urine Leukocyte Esterase Small (NEG) Urine RBC Occ /HPF (0-2) Urine WBC 5-10 /HPF (0-4) Urine Squamous Epithelial Cells Few /LPF Urine Bacteria 0 /HPF (0-FEW) Urine Hyaline Casts Few /HPF Urine Mucus Mod /LPF Sodium Level 143 mmol/L (136-145) Potassium Level 3.4 mmol/L (3.5-5.1) Chloride Level 108 mmol/L (98-107) Carbon Dioxide Level 25 mmol/L (21-32) Anion Gap 10 (6-14) Blood Urea Nitrogen 11 mg/dL (8-26) Creatinine 1.1 mg/dL (0.7-1.3) Estimated GFR (Cockcroft-Gault) 77.9 Glucose Level 93 mg/dL (70-99) Calcium Level 8.3 mg/dL (8.5-10.1) Triglycerides Level 60 mg/dL (0-150) Cholesterol Level 96 mg/dL (0-200) LDL Cholesterol, Calculated 52 mg/dL (0-100) VLDL Cholesterol, Calculated 12 mg/dL (0-40) Non-HDL Cholesterol Calculated 64 mg/dL (0-129) HDL Cholesterol 32 mg/dL (40-60) Cholesterol/HDL Ratio 3.0 Procalcitonin 0.10 ng/mL (0.00-0.10) Glucose (Fingerstick) 107 mg/dL (70-99) Review of Systems Review of Systems A 14 point ROS was completed with the following noted as positive: Other systems reviewed and negative. \CONSTITUTIONAL: No fever or chills EYES: No recent changes SKIN: No rash or itching CARDIOVASCULAR: No chest pain, syncope, palpitations, or edema RESPIRATORY: No SOB or cough GASTROINTESTINAL: No nausea, vomiting or abdominal pain NEUROLOGICAL: No headaches or weakness ENDOCRINE: No cold or heat intolerance GENITOURINARY: No urgency or frequency of urination MUSCULOSKELETAL: No back pain or joint pain LYMPHATICS: No enlarged lymph nodes PSYCHIATRIC: No anxiety or depression Assessment and Plan Assessmemt and Plan Problems Medical Problems: (1) Confusion Status: Acute (2) Fever Status: Acute (3) Upper respiratory infection Status: Acute Comment Review of Relevant I have reviewed the following items antoni (where applicable) has been applied. Labs Laboratory Tests Test 02/12/19 15:29 02/12/19 15:45 02/12/19 16:20 02/12/19 20:33 Glucose (Fingerstick) 202 mg/dL (70-99) 101 mg/dL (70-99) White Blood Count 6.8 x10^3/uL (4.0-11.0) Red Blood Count 4.54 x10^6/uL (4.30-5.70) Hemoglobin 13.5 g/dL (13.0-17.5) Hematocrit 41.6 % (39.0-53.0) Mean Corpuscular Volume 92 fL (79-100) Mean Corpuscular Hemoglobin 30 pg (25-35) Mean Corpuscular Hemoglobin Concent 33 g/dL (31-37) Red Cell Distribution Width 14.7 % (11.5-14.5) Platelet Count 207 x10^3/uL (140-400) Neutrophils (%) (Auto) 71 % (31-73) Lymphocytes (%) (Auto) 21 % (24-48) Monocytes (%) (Auto) 7 % (0-9) Eosinophils (%) (Auto) 0 % (0-3) Basophils (%) (Auto) 1 % (0-3) Neutrophils # (Auto) 4.8 x10^3uL (1.8-7.7) Lymphocytes # (Auto) 1.5 x10^3/uL (1.0-4.8) Monocytes # (Auto) 0.5 x10^3/uL (0.0-1.1) Eosinophils # (Auto) 0.0 x10^3/uL (0.0-0.7) Basophils # (Auto) 0.0 x10^3/uL (0.0-0.2) Prothrombin Time 14.4 SEC (11.7-14.0) Prothromb Time International Ratio 1.2 (0.8-1.1) Activated Partial Thromboplast Time 40 SEC (24-38) Sodium Level 140 mmol/L (136-145) Potassium Level 3.5 mmol/L (3.5-5.1) Chloride Level 104 mmol/L (98-107) Carbon Dioxide Level 29 mmol/L (21-32) Anion Gap 7 (6-14) Blood Urea Nitrogen 14 mg/dL (8-26) Creatinine 1.6 mg/dL (0.7-1.3) Estimated GFR (Cockcroft-Gault) 50.6 BUN/Creatinine Ratio 9 (6-20) Glucose Level 101 mg/dL (70-99) Lactic Acid Level 1.7 mmol/L (0.4-2.0) Calcium Level 9.2 mg/dL (8.5-10.1) Total Bilirubin 0.6 mg/dL (0.2-1.0) Aspartate Amino Transf (AST/SGOT) 24 U/L (15-37) Alanine Aminotransferase (ALT/SGPT) 14 U/L (16-63) Alkaline Phosphatase 41 U/L (46-116) Creatine Kinase 718 U/L (39-308) Creatine Kinase MB (Mass) 0.7 ng/mL (0.0-3.6) Creatine Kinase MB Relative Index 0.1 % (0-4) Troponin I Quantitative < 0.017 ng/mL (0.000-0.055) GR-[id number]-[id number]-Type Natriuretic Peptide 276 pg/mL (0-449) Total Protein 8.2 g/dL (6.4-8.2) Albumin 3.7 g/dL (3.4-5.0) Albumin/Globulin Ratio 0.8 (1.0-1.7) Vitamin B12 Level 260 pg/mL (247-911) Thyroid Stimulating Hormone (TSH) 1.124 uIU/mL (0.358-3.74) Influenza Type A Antigen Negative (NEGATIVE) Influenza Type B Antigen Negative (NEGATIVE) Test 02/12/19 22:10 02/13/19 04:39 02/13/19 04:50 02/13/19 07:30 Troponin I Quantitative 0.030 ng/mL (0.000-0.055) 0.030 ng/mL (0.000-0.055) Urine Collection Type Unknown Urine Color Yellow Urine Clarity Clear Urine pH 5.5 Urine Specific [place] 1.015 Urine Protein Negative mg/dL (NEG-TRACE) Urine Glucose (UA) Negative mg/dL (NEG) Urine Ketones (Stick) Negative mg/dL (NEG) Urine Blood Trace (NEG) Urine Nitrite Negative (NEG) Urine Bilirubin Negative (NEG) Urine Urobilinogen Dipstick 1.0 mg/dL (0.2 mg/dL) Urine Leukocyte Esterase Small (NEG) Urine RBC Occ /HPF (0-2) Urine WBC 5-10 /HPF (0-4) Urine Squamous Epithelial Cells Few /LPF Urine Bacteria 0 /HPF (0-FEW) Urine Hyaline Casts Few /HPF Urine Mucus Mod /LPF Sodium Level 143 mmol/L (136-145) Potassium Level 3.4 mmol/L (3.5-5.1) Chloride Level 108 mmol/L (98-107) Carbon Dioxide Level 25 mmol/L (21-32) Anion Gap 10 (6-14) Blood Urea Nitrogen 11 mg/dL (8-26) Creatinine 1.1 mg/dL (0.7-1.3) Estimated GFR (Cockcroft-Gault) 77.9 Glucose Level 93 mg/dL (70-99) Calcium Level 8.3 mg/dL (8.5-10.1) Triglycerides Level 60 mg/dL (0-150) Cholesterol Level 96 mg/dL (0-200) LDL Cholesterol, Calculated 52 mg/dL (0-100) VLDL Cholesterol, Calculated 12 mg/dL (0-40) Non-HDL Cholesterol Calculated 64 mg/dL (0-129) HDL Cholesterol 32 mg/dL (40-60) Cholesterol/HDL Ratio 3.0 Procalcitonin 0.10 ng/mL (0.00-0.10) Glucose (Fingerstick) 107 mg/dL (70-99) Laboratory Tests Test 02/12/19 15:29 02/12/19 15:45 02/12/19 16:20 02/12/19 20:33 Glucose (Fingerstick) 202 mg/dL (70-99) 101 mg/dL (70-99) White Blood Count 6.8 x10^3/uL (4.0-11.0) Red Blood Count 4.54 x10^6/uL (4.30-5.70) Hemoglobin 13.5 g/dL (13.0-17.5) Hematocrit 41.6 % (39.0-53.0) Mean Corpuscular Volume 92 fL (79-100) Mean Corpuscular Hemoglobin 30 pg (25-35) Mean Corpuscular Hemoglobin Concent 33 g/dL (31-37) Red Cell Distribution Width 14.7 % (11.5-14.5) Platelet Count 207 x10^3/uL (140-400) Neutrophils (%) (Auto) 71 % (31-73) Lymphocytes (%) (Auto) 21 % (24-48) Monocytes (%) (Auto) 7 % (0-9) Eosinophils (%) (Auto) 0 % (0-3) Basophils (%) (Auto) 1 % (0-3) Neutrophils # (Auto) 4.8 x10^3uL (1.8-7.7) Lymphocytes # (Auto) 1.5 x10^3/uL (1.0-4.8) Monocytes # (Auto) 0.5 x10^3/uL (0.0-1.1) Eosinophils # (Auto) 0.0 x10^3/uL (0.0-0.7) Basophils # (Auto) 0.0 x10^3/uL (0.0-0.2) Prothrombin Time 14.4 SEC (11.7-14.0) Prothromb Time International Ratio 1.2 (0.8-1.1) Activated Partial Thromboplast Time 40 SEC (24-38) Sodium Level 140 mmol/L (136-145) Potassium Level 3.5 mmol/L (3.5-5.1) Chloride Level 104 mmol/L (98-107) Carbon Dioxide Level 29 mmol/L (21-32) Anion Gap 7 (6-14) Blood Urea Nitrogen 14 mg/dL (8-26) Creatinine 1.6 mg/dL (0.7-1.3) Estimated GFR (Cockcroft-Gault) 50.6 BUN/Creatinine Ratio 9 (6-20) Glucose Level 101 mg/dL (70-99) Lactic Acid Level 1.7 mmol/L (0.4-2.0) Calcium Level 9.2 mg/dL (8.5-10.1) Total Bilirubin 0.6 mg/dL (0.2-1.0) Aspartate Amino Transf (AST/SGOT) 24 U/L (15-37) Alanine Aminotransferase (ALT/SGPT) 14 U/L (16-63) Alkaline Phosphatase 41 U/L (46-116) Creatine Kinase 718 U/L (39-308) Creatine Kinase MB (Mass) 0.7 ng/mL (0.0-3.6) Creatine Kinase MB Relative Index 0.1 % (0-4) Troponin I Quantitative < 0.017 ng/mL (0.000-0.055) [id number]-Zqi-[id number]-Type Natriuretic Peptide 276 pg/mL (0-449) Total Protein 8.2 g/dL (6.4-8.2) Albumin 3.7 g/dL (3.4-5.0) Albumin/Globulin Ratio 0.8 (1.0-1.7) Vitamin B12 Level 260 pg/mL (247-911) Thyroid Stimulating Hormone (TSH) 1.124 uIU/mL (0.358-3.74) Influenza Type A Antigen Negative (NEGATIVE) Influenza Type B Antigen Negative (NEGATIVE) Test 02/12/19 22:10 02/13/19 04:39 02/13/19 04:50 02/13/19 07:30 Troponin I Quantitative 0.030 ng/mL (0.000-0.055) 0.030 ng/mL (0.000-0.055) Urine Collection Type Unknown Urine Color Yellow Urine Clarity Clear Urine pH 5.5 Urine Specific [place] 1.015 Urine Protein Negative mg/dL (NEG-TRACE) Urine Glucose (UA) Negative mg/dL (NEG) Urine Ketones (Stick) Negative mg/dL (NEG) Urine Blood Trace (NEG) Urine Nitrite Negative (NEG) Urine Bilirubin Negative (NEG) Urine Urobilinogen Dipstick 1.0 mg/dL (0.2 mg/dL) Urine Leukocyte Esterase Small (NEG) Urine RBC Occ /HPF (0-2) Urine WBC 5-10 /HPF (0-4) Urine Squamous Epithelial Cells Few /LPF Urine Bacteria 0 /HPF (0-FEW) Urine Hyaline Casts Few /HPF Urine Mucus Mod /LPF Sodium Level 143 mmol/L (136-145) Potassium Level 3.4 mmol/L (3.5-5.1) Chloride Level 108 mmol/L (98-107) Carbon Dioxide Level 25 mmol/L (21-32) Anion Gap 10 (6-14) Blood Urea Nitrogen 11 mg/dL (8-26) Creatinine 1.1 mg/dL (0.7-1.3) Estimated GFR (Cockcroft-Gault) 77.9 Glucose Level 93 mg/dL (70-99) Calcium Level 8.3 mg/dL (8.5-10.1) Triglycerides Level 60 mg/dL (0-150) Cholesterol Level 96 mg/dL (0-200) LDL Cholesterol, Calculated 52 mg/dL (0-100) VLDL Cholesterol, Calculated 12 mg/dL (0-40) Non-HDL Cholesterol Calculated 64 mg/dL (0-129) HDL Cholesterol 32 mg/dL (40-60) Cholesterol/HDL Ratio 3.0 Procalcitonin 0.10 ng/mL (0.00-0.10) Glucose (Fingerstick) 107 mg/dL (70-99) Medications Current Medications Acetaminophen (Tylenol) 650 mg 1X ONCE PO Last administered on 02/12/19at 16:36; Start 02/12/19 at 15:30; Stop 02/12/19 at 15:35; Status DC Albuterol Sulfate (Ventolin Neb Soln) 2.5 mg 1X ONCE NEB Last administered on 02/12/19at 16:27; Start 02/12/19 at 16:00; Stop 02/12/19 at 16:01; Status DC Aspirin (Derik Aspirin) 325 mg 1X ONCE PO Last administered on 02/12/19at 16:34; Start 02/12/19 at 16:15; Stop 02/12/19 at 16:16; Status DC Ceftriaxone Sodium (Rocephin) 1 gm 1X ONCE IVP Last administered on 02/12/19at 17:37; Start 02/12/19 at 16:15; Stop 02/12/19 at 16:16; Status DC Azithromycin 250 ml @ 250 mls/hr 1X ONCE IV Last administered on 02/12/19at 17:37; Start 02/12/19 at 16:15; Stop 02/12/19 at 17:14; Status DC Sodium Chloride 1,000 ml @ 1,000 mls/hr 1X ONCE IV Last administered on 02/12/19at 16:19; Start 02/12/19 at 16:15; Stop 02/12/19 at 17:14; Status DC Gadobutrol (Gadavist) 9 mmol 1X ONCE IV Last administered on 02/12/19at 17:07; Start 02/12/19 at 17:00; Stop 02/12/19 at 17:03; Status DC Aspirin (Children'S Aspirin) 81 mg DAILY PO ; Start 02/13/19 at 09:00 Tamsulosin HCl (Flomax) 0.4 mg DAILY PO ; Start 02/13/19 at 09:00 Brimonidine Tartrate (Alphagan) 1 drop BID OS ; Start 02/12/19 at 21:00 Latanoprost (Xalatan) 1 drop QHS OU Last administered on 02/12/19at 21:51; Start 02/12/19 at 21:00 Metformin HCl (Glucophage) 500 mg TIDWMEALS PO ; Start 02/13/19 at 08:00 Dexamethasone (Maxidex) 1 drop TID OU Last administered on 02/12/19at 21:52; Start 02/12/19 at 21:00 Simvastatin (Zocor) 20 mg HS PO Last administered on 02/12/19at 21:18; Start 02/12/19 at 21:00 Sodium Chloride 1,000 ml @ 75 mls/hr [id number] IV Last administered on 02/12/19at 21:18; Start 02/12/19 at 21:00 Ceftriaxone Sodium (Rocephin) 1 gm Q24H IVP ; Start 02/13/19 at 18:00 Azithromycin 250 mg/Sodium Chloride 250 ml @ 250 mls/hr Q24H IV ; Start 02/13/19 at 18:00 Insulin Human Lispro (HumaLOG) 0-9 UNITS TIDWMEALS SQ ; Start 02/13/19 at 12:00 Dextrose (Dextrose 50%-Water Syringe) 12.5 gm PRN Q15MIN PRN IV SEE COMMENTS; Start 02/13/19 at 08:30 Acetaminophen (Tylenol) 500 mg PRN Q6HRS PRN PO MILD PAIN / TEMP; Start 02/13/19 at 08:30 Ondansetron HCl (Zofran) 4 mg PRN Q6HRS PRN IV NAUSEA/VOMITING; Start 02/13/19 at 08:30 Lactobacillus Rhamnosus (Culturelle) 1 cap BID PO ; Start 02/13/19 at 09:00 Active Scripts Active Reported Latanoprost 2.5 Ml Drops 1 Drop EACHEYE QHS Alphagan P (Brimonidine Tartrate) 5 Ml Drops 1 Drop LEFTEYE BID Prednisolone Acetate 5 Ml Drops.susp 1 Drop EACHEYE TID Metformin Hcl 500 Mg Tablet 500 Mg PO TIDBFRMEAL Aspirin 81 Mg Tab.chew 1 Tab PO DAILY Simvastatin 20 Mg Tablet 1 Tab PO DAILY Take tonight before bed Tamsulosin Hcl 0.4 Mg Cap.er.24h 0.4 Mg PO DAILY Gave this morning Take tomorrow morning Vitals/I & O Vital Sign - Last 24 Hours 02/12/19 02/12/19 02/12/19 02/12/19 15:18 15:49 15:59 16:01 Temp 101.2 101.2 Pulse 106 90 88 90 Resp 28 16 B/P (MAP) 139/89 (106) Pulse Ox 94 93 93 92 O2 Delivery Room Air 02/12/19 02/12/19 02/12/19 02/12/19 16:19 16:27 16:29 17:33 Pulse 82 78 92 Resp 38 35 Pulse Ox 90 90 92 92 O2 Delivery Room Air 02/12/19 02/12/19 02/12/19 02/12/19 17:35 17:43 17:53 18:03 Temp 101.1 101.1 Pulse 92 90 Pulse Ox 92 92 92 02/12/19 02/12/19 02/12/19 02/12/19 18:13 18:23 19:00 20:15 Temp 98.9 98.9 Pulse 90 90 Pulse Ox 96 96 O2 Delivery Room Air 02/12/19 02/12/19 02/13/19 02/13/19 20:16 22:24 03:35 07:00 Temp 98.4 98.3 99.0 98.7 98.4 98.3 99.0 98.7 Pulse 74 82 73 76 Resp 18 16 16 18 B/P (MAP) 152/86 (108) 130/87 (101) 153/90 (111) 135/84 (101) Pulse Ox 92 97 99 96 O2 Delivery Room Air Room Air Nasal Cannula Nasal Cannula O2 Flow Rate 2.0 2.0 Intake and Output 02/12/19 02/12/19 02/13/19 14:59 22:59 06:59 Intake Total 1250 ml 120 ml Output Total 325 ml 625 ml Balance 925 ml -505 ml ARELY ALAMO MD Feb 13, 2019 09:43
[2019-02-13] MEDS: DEXAMETHASONE 0.1% OPHTH SOLUTION 5ML BOTTLE. OU SCH ×3 (09:53→21:58)
[2019-02-13] MEDS: LACTOBACILLUS RHAMNOSUS GG 1 CAPSULE. PO SCH ×2 (09:53→21:57)
[2019-02-13] MEDS: ASPIRIN CHEWABLE 81 MG TABLET. PO SCH (09:53)
[2019-02-13] MEDS: TAMSULOSIN 0.4 MG CAP.ER.24H. PO SCH (09:53)
[2019-02-13] MEDS: metFORMIN 500 MG TABLET PO SCH ×3 (09:53→17:45)
[2019-02-13] MEDS: IV NORMAL SALINE 1000ML BAG 1,000 ML IV SCH (10:00)
[2019-02-13] MEDS: BRIMONIDINE 0.2% OPHTH SOLUTION 5ML BOTTLE. OS SCH ×2 (10:16→21:57)
--- NOTE | 2019-02-13 10:35 | NUR ---
Bedside Swallow Evaluation completed. Please refer to full report for additional information. Impressions: Functional swallow w/ mastication inefficiency and prolonged chewing of solids r/t poor dentition and missing teeth. Pt agreeable to diet modification to ground meat while in hospital. No s/s aspiration were noted during evaluation and pt appears at low risk of aspiration for modified diet and general swallow precautions. Recommendations: Dysphagia II diet (ground meat) w/ thin liquids. General swallow precautions. No additional ST services indicated at this time. D/w JOSE ANGEL Moore and pt.
[2019-02-13 11:00] VITALS: BP 136/83
[2019-02-13] MEDS ORDERED: POTASSIUM CHLORIDE 20 MEQ TABLET.ER. PO ONE (11:45)
--- NOTE | 2019-02-13 11:50 | PDOC2 ---
JOSÉ CHAMBERLAIN METAL INSPECTOR 02/13/19 1150: CARDIAC CONSULT DATE OF CONSULT Date of Consult DATE: 02/13/19 TIME: 11:32 REASON FOR CONSULT Reason for Consult: HTN REFERRING PHYSICIAN Referring Physician: shankar SOURCE Source: Chart review, Patient HISTORY OF PRESENT ILLNESS HISTORY OF PRESENT ILLNESS This is a pleasant legally blind 78 yo male admitted for complains of change in mentation. He was at his PCPs on 02/11 and was complaining of sore throat and persistent cough that started about 4-5 days ago. No chest pain or SOA. He has been noted with altered mental status prompting coming to ED. No focal deficits and has been ruled out for any CVA. He has hx of HTn and his BP was just mildly elevated upon admission and noted with fever in the 101s. He takes benicar and HCTZ and no hx of CAD, CHF. Denies any exertional CP nor MIKE. PAST MEDICAL HISTORY Cardiovascular: HTN, Hyperlipidemia CENTRAL NERVOUS SYSTEM: CVA, TIA GI: Diverticulosis, Hemorrhoids Musculoskeletal: Osteoarthritis Rheumatologic: Gout ENT: Allergic Rhinitis Renal/: Other (ED) Endocrine: Diabetes (2) PAST SURGICAL HISTORY Past Surgical History: Other (toe amputation) FAMILY HISTORY Family History noncontributory to CV SOCIAL HISTORY Smoke: <1 pack per day (>40 yrs) ALCOHOL: none Drugs: None Lives: with Family CURRENT MEDICATIONS CURRENT MEDICATIONS Current Medications Medications (Trade) Dose Ordered Sig/Scotty Route PRN Reason Start Time Stop Time Status Last Admin Dose Admin Acetaminophen (Tylenol) 650 mg 1X ONCE PO 02/12/19 15:30 02/12/19 15:35 DC 02/12/19 16:36 Albuterol Sulfate (Ventolin Neb Soln) 2.5 mg 1X ONCE NEB 02/12/19 16:00 02/12/19 16:01 DC 02/12/19 16:27 Aspirin (Derik Aspirin) 325 mg 1X ONCE PO 02/12/19 16:15 02/12/19 16:16 DC 02/12/19 16:34 Ceftriaxone Sodium (Rocephin) 1 gm 1X ONCE IVP 02/12/19 16:15 02/12/19 16:16 DC 02/12/19 17:37 Azithromycin 250 ml @ 250 mls/hr 1X ONCE IV 02/12/19 16:15 02/12/19 17:14 DC 02/12/19 17:37 Sodium Chloride 1,000 ml @ 1,000 mls/hr 1X ONCE IV 02/12/19 16:15 02/12/19 17:14 DC 02/12/19 16:19 Gadobutrol (Gadavist) 9 mmol 1X ONCE IV 02/12/19 17:00 02/12/19 17:03 DC 02/12/19 17:07 Aspirin (Children'S Aspirin) 81 mg DAILY PO 02/13/19 09:00 02/13/19 09:53 Tamsulosin HCl (Flomax) 0.4 mg DAILY PO 02/13/19 09:00 02/13/19 09:53 Brimonidine Tartrate (Alphagan) 1 drop BID OS 02/12/19 21:00 02/13/19 10:16 Latanoprost (Xalatan) 1 drop QHS OU 02/12/19 21:00 02/12/19 21:51 Metformin HCl (Glucophage) 500 mg TIDWMEALS PO 02/13/19 08:00 02/13/19 09:53 Dexamethasone (Maxidex) 1 drop TID OU 02/12/19 21:00 02/13/19 09:53 Simvastatin (Zocor) 20 mg HS PO 02/12/19 21:00 02/12/19 21:18 Sodium Chloride 1,000 ml @ 75 mls/hr [id number] IV 02/12/19 21:00 02/13/19 10:00 Lactobacillus Rhamnosus (Culturelle) 1 cap BID PO 02/13/19 09:00 02/13/19 09:53 ALLERGIES ALLERGIES: Coded Allergies: No Known Drug Allergies (Unverified , 12/15/16) ROS Review of System 14 point ROS evaluated with pertinent positives noted per HPI PHYSICAL EXAM General: Alert, Oriented X3, Cooperative, No acute distress HEENT: Atraumatic, Mucous membr. moist/pink Lungs: Clear to auscultation, Normal air movement Heart: Regular rate (SR), Other (distant heart sounds) Abdomen: Soft, No tenderness Extremities: No cyanosis, No edema Skin: No breakdown, No significant lesion Neuro: Normal speech, Sensation intact Psych/Mental Status: Mental status NL, Mood NL MUSCULOSKELETAL: Osteoarthritic changes both hands VITALS VITALS Vital Signs Date Time Temp Pulse Resp B/P (MAP) Pulse Ox O2 Delivery O2 Flow Rate FiO2 02/13/19 11:00 98.1 70 18 136/83 (100) 95 Nasal Cannula 2.0 98.1 LABS Lab: Laboratory Tests Test 02/12/19 15:29 02/12/19 15:45 02/12/19 16:20 02/12/19 20:33 Glucose (Fingerstick) 202 mg/dL (70-99) 101 mg/dL (70-99) White Blood Count 6.8 x10^3/uL (4.0-11.0) Red Blood Count 4.54 x10^6/uL (4.30-5.70) Hemoglobin 13.5 g/dL (13.0-17.5) Hematocrit 41.6 % (39.0-53.0) Mean Corpuscular Volume 92 fL (79-100) Mean Corpuscular Hemoglobin 30 pg (25-35) Mean Corpuscular Hemoglobin Concent 33 g/dL (31-37) Red Cell Distribution Width 14.7 % (11.5-14.5) Platelet Count 207 x10^3/uL (140-400) Neutrophils (%) (Auto) 71 % (31-73) Lymphocytes (%) (Auto) 21 % (24-48) Monocytes (%) (Auto) 7 % (0-9) Eosinophils (%) (Auto) 0 % (0-3) Basophils (%) (Auto) 1 % (0-3) Neutrophils # (Auto) 4.8 x10^3uL (1.8-7.7) Lymphocytes # (Auto) 1.5 x10^3/uL (1.0-4.8) Monocytes # (Auto) 0.5 x10^3/uL (0.0-1.1) Eosinophils # (Auto) 0.0 x10^3/uL (0.0-0.7) Basophils # (Auto) 0.0 x10^3/uL (0.0-0.2) Prothrombin Time 14.4 SEC (11.7-14.0) Prothromb Time International Ratio 1.2 (0.8-1.1) Activated Partial Thromboplast Time 40 SEC (24-38) Sodium Level 140 mmol/L (136-145) Potassium Level 3.5 mmol/L (3.5-5.1) Chloride Level 104 mmol/L (98-107) Carbon Dioxide Level 29 mmol/L (21-32) Anion Gap 7 (6-14) Blood Urea Nitrogen 14 mg/dL (8-26) Creatinine 1.6 mg/dL (0.7-1.3) Estimated GFR (Cockcroft-Gault) 50.6 BUN/Creatinine Ratio 9 (6-20) Glucose Level 101 mg/dL (70-99) Lactic Acid Level 1.7 mmol/L (0.4-2.0) Calcium Level 9.2 mg/dL (8.5-10.1) Total Bilirubin 0.6 mg/dL (0.2-1.0) Aspartate Amino Transf (AST/SGOT) 24 U/L (15-37) Alanine Aminotransferase (ALT/SGPT) 14 U/L (16-63) Alkaline Phosphatase 41 U/L (46-116) Creatine Kinase 718 U/L (39-308) Creatine Kinase MB (Mass) 0.7 ng/mL (0.0-3.6) Creatine Kinase MB Relative Index 0.1 % (0-4) Troponin I Quantitative < 0.017 ng/mL (0.000-0.055) UL-Nqn-N-Type Natriuretic Peptide 276 pg/mL (0-449) Total Protein 8.2 g/dL (6.4-8.2) Albumin 3.7 g/dL (3.4-5.0) Albumin/Globulin Ratio 0.8 (1.0-1.7) Vitamin B12 Level 260 pg/mL (247-911) Thyroid Stimulating Hormone (TSH) 1.124 uIU/mL (0.358-3.74) Influenza Type A Antigen Negative (NEGATIVE) Influenza Type B Antigen Negative (NEGATIVE) Test 02/12/19 22:10 02/13/19 04:39 02/13/19 04:50 02/13/19 07:30 Troponin I Quantitative 0.030 ng/mL (0.000-0.055) 0.030 ng/mL (0.000-0.055) Urine Collection Type Unknown Urine Color Yellow Urine Clarity Clear Urine pH 5.5 Urine Specific [place] 1.015 Urine Protein Negative mg/dL (NEG-TRACE) Urine Glucose (UA) Negative mg/dL (NEG) Urine Ketones (Stick) Negative mg/dL (NEG) Urine Blood Trace (NEG) Urine Nitrite Negative (NEG) Urine Bilirubin Negative (NEG) Urine Urobilinogen Dipstick 1.0 mg/dL (0.2 mg/dL) Urine Leukocyte Esterase Small (NEG) Urine RBC Occ /HPF (0-2) Urine WBC 5-10 /HPF (0-4) Urine Squamous Epithelial Cells Few /LPF Urine Bacteria 0 /HPF (0-FEW) Urine Hyaline Casts Few /HPF Urine Mucus Mod /LPF Sodium Level 143 mmol/L (136-145) Potassium Level 3.4 mmol/L (3.5-5.1) Chloride Level 108 mmol/L (98-107) Carbon Dioxide Level 25 mmol/L (21-32) Anion Gap 10 (6-14) Blood Urea Nitrogen 11 mg/dL (8-26) Creatinine 1.1 mg/dL (0.7-1.3) Estimated GFR (Cockcroft-Gault) 77.9 Glucose Level 93 mg/dL (70-99) Calcium Level 8.3 mg/dL (8.5-10.1) Triglycerides Level 60 mg/dL (0-150) Cholesterol Level 96 mg/dL (0-200) LDL Cholesterol, Calculated 52 mg/dL (0-100) VLDL Cholesterol, Calculated 12 mg/dL (0-40) Non-HDL Cholesterol Calculated 64 mg/dL (0-129) HDL Cholesterol 32 mg/dL (40-60) Cholesterol/HDL Ratio 3.0 Procalcitonin 0.10 ng/mL (0.00-0.10) Glucose (Fingerstick) 107 mg/dL (70-99) ASSESSMENT/PLAN ASSESSMENT/PLAN 1. Fever/URI: ID following 2. Metabolic encephalopathy; resolved, neurology following 3. HTN; controlled 4. Legally blind 5. DM2/HLP; on goal 6. COPD with continued tobaccoism Recommendations 1. Continue home HCTZ and ARB. Replace K 2. Continue with secondary prevention. 3. Abnormal EKG, TTE today SHAMEKA MARY MD 02/13/198: CARDIAC CONSULT ASSESSMENT/PLAN ASSESSMENT/PLAN Pt. seen and examined. Agree with above NUTRITION SERVICES ASSISTANT note. no acute cardiac issues. HTN stable. Supportive care. JOSÉ CHAMBERLAIN METAL INSPECTOR Feb 13, 2019 11:50 SHAMEKA MARY MD Feb 13, 2019 22:08
[2019-02-13] MEDS: INSULIN LISPRO 300 UNITS/3 ML INSULN.PEN. SQ SCH ×2 (12:00→17:00)
--- NOTE | 2019-02-13 12:46 | NUR ---
SS following for discharge planning. Pt is from home with spouse and is currently requiring oxygen. PT/OT evaluated pt and recommended home healthcare. Yarely from [facility] to meet with pt to discuss. SS will continue to follow for discharge planning.
[2019-02-13] MEDS ORDERED: CYCL10TA2 PO (12:51)
[2019-02-13] MEDS ORDERED: HYDR-2145 PO (12:51)
[2019-02-13] MEDS ORDERED: TADA5TAB PO (12:51)
[2019-02-13] MEDS ORDERED: COLC0.6T34 PO (12:51)
[2019-02-13] MEDS ORDERED: ERGO500027 PO (12:51)
[2019-02-13] MEDS ORDERED: MELO15TA23 PO (12:51)
[2019-02-13] MEDS ORDERED: INDO50CA5 PO (12:51)
[2019-02-13] MEDS ORDERED: ATOR20TA58 PO (12:51)
[2019-02-13] MEDS ORDERED: CETI10TA16 PO (12:51)
[2019-02-13] MEDS ORDERED: DOCU100C28 PO (12:51)
[2019-02-13] MEDS ORDERED: OLME1TAB25 PO (12:51)
[2019-02-13] MEDS ORDERED: LINZESS145 MCG PO (12:51)
[2019-02-13] MEDS: hydroCHLOROthiazide 25 MG TABLET PO SCH (13:47)
[2019-02-13] MEDS: LOSARTAN POTASSIUM 50 MG TABLET. PO SCH (13:48)
--- NOTE | 2019-02-13 13:58 | CARD ---
MR#: [id number] Date of Study: 02/13/2019 Ordering Physician: JOSÉ CHAMBERLAIN, Referring Physician: ANIYA GARCIA Tech: Felicia Villa JACQUELINE APPROVED REPORT EXAM: Two-dimensional and M-mode echocardiogram with Doppler and color Doppler. Other Information Quality : Technically LimitedHR: 75bpm Rhythm : NSRTechnically limited study due to smoking. INDICATION Abnormal ECG 2D DIMENSIONS RVDd2.9 (2.9-3.5cm)Left Atrium(2D)3.0 (1.6-4.0cm) IVSd1.0 (0.7-1.1cm)Aortic Root(2D)2.8 (2.0-3.7cm) LVDd3.8 (3.9-5.9cm)LVOT Diameter2.2 (1.8-2.4cm) PWd1.0 (0.7-1.1cm)LVDs2.9 (2.5-4.0cm) FS (%) 24.0 %SV30.6 ml LVEF(%)50.0 (>50%) M-Mode DIMENSIONS Left Atrium(MM)2.50 (2.5-4.0cm)Aortic Root3.23 (2.2-3.7cm) Aortic Valve AoV Peak Garfield.96.5cm/sAoV VTI18.6cm AO Peak GR.3.7mmHgLVOT Peak [place]field.81.4cm/s AO Mean GR.2mmHgAVA (VMAX)3.12cm2 TJ (VTI)3.00cm2 Mitral Valve MV E Fcqflqjf00.8cm/sMV DECEL [id number] MV A Esqjbebs18.3cm/sE/A Ratio1.2 MV A [id number] Pulmonary Valve PV Peak Dgvruycq86.5cm/s LEFT VENTRICLE The left ventricle is normal size. There is normal left ventricular wall thickness. The left ventricu lar systolic function is normal and the ejection fraction is within normal range. The Ejection Fracti on is 50-55%. There is normal LV segmental wall motion. Tissue Doppler imaging reveals moderate left ventricular diastolic dysfunction. RIGHT VENTRICLE The right ventricle is normal size. There is normal right ventricular wall thickness. The right ventr icular systolic function is normal. ATRIA The left atrium is mildly dilated. The right atrium size is normal. The interatrial septum is intact with no evidence for an atrial septal defect or patent foramen ovale as noted on 2-D or Doppler imagi ng. AORTIC VALVE The aortic valve is calcified but opens well. The aortic valve is trileaflet. Doppler and Color Flow revealed no significant aortic regurgitation. There is no significant aortic valvular stenosis. MITRAL VALVE The mitral valve is normal in structure and function. There is no evidence of mitral valve prolapse. There is no mitral valve stenosis. Doppler and Color Flow revealed no mitral valve regurgitation note d. TRICUSPID VALVE The tricuspid valve is normal in structure and function. Doppler and Color Flow revealed no tricuspid valve regurgitation noted. There is no tricuspid valve prolapse or vegetation. There is no tricuspid valve stenosis. PULMONIC VALVE Doppler and Color Flow revealed no pulmonic valvular regurgitation. There is no pulmonic valvular hailey nosis. GREAT VESSELS The aortic root is normal in size. The ascending aorta is normal in size. The IVC is normal in size a nd collapses >50% with inspiration. PERICARDIAL EFFUSION There is no evidence of significant pericardial effusion. Critical Notification Critical Value: No <Conclusion> The left ventricular systolic function is normal and the ejection fraction is within normal range. Th e Ejection Fraction is 50-55%. There is normal LV segmental wall motion. Signed by : Ricardo Madrid, Electronically Approved : 02/13/2019 13:57:32
--- NOTE | 2019-02-13 14:48 | CONS ---
DATE OF CONSULTATION: 02/13/2019 INFECTIOUS DISEASE CONSULTATION ROOM: 254. REQUESTING PHYSICIAN: Dr. Yvonne Goldman. REASON FOR CONSULTATION: Fever. HISTORY OF PRESENT ILLNESS: The patient is an 78-year-old gentleman with a history of previous TIA with left-sided weakness, history of diabetes and is blind in his right eye for quite some time. Recently on 02/03/2019, he underwent left cataract surgery. He did have some redness, some irritation, but this improved over the course of the week or so. He states for about a week or so, he has had a mild cough, he has had a little headache several days ago, but this is improved. The cough has been dry. He has had decreased appetite, but yesterday he developed a sudden onset of weakness, visual changes, felt weak in his legs and had some sluggish words. He was brought to [facility], had a temperature of 101.2 on arrival. Urinalysis was without bacteria, had 5-10 wbc's, small leukocyte esterase, nitrite was negative, few squamous cells. White blood cell count was 6.8 with 21% lymphs, otherwise normal. Creatinine was 1.6. He had normal liver function study tests. Influenza screen was negative. He underwent a chest x-ray, which did not show any acute process. He underwent a CT scan of his head, which showed no acute process and underwent an MRI, which showed diffuse age expected atrophy, mild diffuse white matter disease, nonspecific likely secondary to chronic vessel disease, no acute findings. Because of his fever, he was placed on Rocephin and azithromycin. Currently, this morning, the patient states he is feeling somewhat better, continues to have a mild dry cough. He denies any gross sinus congestion. No nausea, vomiting or diarrhea. No dysuria, frequency, urgency. No rashes. Denies any joint aches. PAST MEDICAL HISTORY: Diabetes, hyperlipidemia, hypertension, right eye blindness, BPH, history of questionable previous TIAs. PAST SURGICAL HISTORY: Positive for cataract surgery only. REVIEW OF SYSTEMS: Otherwise negative. ALLERGIES: No known drug allergies. SOCIAL HISTORY: He is a smoker, very rare alcohol. He is . He has outdoor cats. FAMILY HISTORY: Positive for CVA. CURRENT MEDICATIONS: Include azithromycin, albuterol, aspirin, Rocephin, dexamethasone eyedrops, Gadavist, metformin, Zocor and Flomax. PHYSICAL EXAMINATION: VITAL SIGNS: T-max was 101.2, currently 99, pulse 73, respirations 16, blood pressure 153/90, satting 99% on 2 liters. CONSTITUTIONAL: He has chronic eye changes. Normal conjunctivae. Oral cavity, pharynx is dry. NECK: Supple. Neck was without JVD. LUNGS: Clear to auscultation. HEART: S1, S2. ABDOMEN: Soft, nontender, nondistended with positive bowel sounds. EXTREMITIES: Without clubbing, cyanosis or gross edema. SKIN: Warm to touch without signs of rash. NEUROLOGIC: He answers questions appropriately, moves all extremities. PSYCHIATRIC: Affect is pleasant. LABORATORY DATA: White count 6.8 on arrival, hemoglobin 13.5, platelets 207, neutrophils 71, lymphs were 21. Creatinine 1.1 this morning down from 1.6, glucose 93. Troponin of 0.03. Procalcitonin of 0.1. Influenza negative. Urine reviewed in history of present illness as well as Radiology. IMPRESSION: 1. Fever. 2. Cough. 3. Encephalopathy, questionable transient ischemic attack, has greatly improved. 4. Acute kidney injury, improved. 5. Diabetes. RECOMMENDATIONS: Continue Rocephin and azithromycin for now. I did order the procalcitonin and laboratory values for this morning to followup. We are going to followup labs and cultures. This was discussed with his . Thank you for allowing me to see to participate in the patient's care. Should you have any further questions, please do not hesitate to contact me. MAGDALENE DANIELS MD DR: BEATRIZ/mara JOB#: [id number] / [id number]
[2019-02-13 15:00] VITALS: BP 156/84
--- NOTE | 2019-02-13 17:03 | PDOC ---
PROGRESS NOTES Assessment Assessment Left side weakness. Code stroke. Metabolic encephalopathy. Confusion. Fever 101.2 degree. Cough. Generalized weakness. DM. HTN. HLD. Renal failure. No evidence of acute CVA this time. RECOMMENDATIONS/PLAN: Consulted ID. ASA 81 mg daily. Treat medical diseases. HISTORY OF THE PRESENT ILLNESS: This is an 79-y-old AA male patient with Hx of HTN, DM, HLD. He was last seen mentally normal around 1:15 pm on 02/12/19. He took a nap and woke up about 3:00 pm feeling his left side was weak and not easily get up. He was noted by his family as having mental status changes and confusion as well. He was brought to the ER of [facility] as coded stroke. His was revealed fever of 101.2 degree with cough. Stat MRI was performed which showed no CVA this time. In fact, patient's mental status and left side weakness also improved after IV hydration and fever control and antibiotics. He states he is doing better on 02/13/19. No focalized sensory or motor deficits. PAST MEDICAL HISTORY: Please see above. PAST SURGERY HISTORY: No major surgery recently. ALLERGY: Unknown MEDICATIONS: Refer to MAR FAMILY HISTORY: Non contributory. SOCIAL HISTORY: Lives at home. Denies illicit drug use. He smokes 1/2 pack of cigarettes a day for many years. He drinks alcohol a day occasionally. REVIEW OF SYSTEMS: Constitutional: No malnutrition, weight loss, cachexia. Head: No traumatic brain or head injury. Skin: No edema, or rash. Ear: No infection. Eyes: No vision loss or color blindness. Nose: No bleeding or purulent discharges. Hearing: Hearing decrease. Neck: No injury. Cardiac: HTN, HLD. Pulmonary: Smoking.. GI: No GI ulcer, GI bleeding. Urinary/genital: BPH. Endocrinologic: Diabetes Mellitus. Skeletomuscular: No muscular atrophy, deformity. Neurological: see HP. Psychiatric: Denies drug use/abuse. Otherwise, not [id number] review of systems. PHYSICAL EXAMINATION: General appearance is subacute distress. HEENT: Normocephalic and nontraumatic. Eyes, nose, ears, and throat are unremarkable. Neck is supple. No lymphadenopathy. No bruits are heard over the carotid artery. No crepitus. Cardiovascular: S1, S2, regular rate and rhythm. Pulmonary: Clear to auscultation bilaterally. Abdomen: Bowel sounds are positive. Abdomen is soft, nontender, and nondistended. Extremities: No rash, lesions, or edema. No restriction of range of motion NEUROLOGICAL EXAMINATION: Awake. Oriented to time, place and person. PERRL. EOMI. CN: no focal findings. Muscle tone: within normal. Muscle strength: 5- DTR: 2 Plantar reflex: Flexor response bilaterally Gait: At his baseline normal. Sensory exam: no abnormal findings. No cerebellar signs elicited. F-T-N test fine. Objective Objective Vital Signs Date Time Temp Pulse Resp B/P (MAP) Pulse Ox O2 Delivery O2 Flow Rate FiO2 02/13/19 15:00 98.0 63 18 156/84 (108) 95 Nasal Cannula 2.0 98.0 Intake and Output 02/13/19 07:00 Intake Total 1370 ml Output Total 950 ml Balance 420 ml Intake Oral 120 ml IV Total 1250 ml Output Urine Total 950 ml Vitals Signs Vitals VS - Last 72 Hours, by Label Date Time Temp Pulse Resp B/P (MAP) Pulse Ox O2 Delivery O2 Flow Rate FiO2 02/13/19 15:00 98.0 63 18 156/84 (108) 95 Nasal Cannula 2.0 98.0 02/13/19 13:48 62 136/83 02/13/19 11:00 98.1 70 18 136/83 (100) 95 Nasal Cannula 2.0 98.1 02/13/19 07:00 98.7 76 18 135/84 (101) 96 Nasal Cannula 2.0 98.7 02/13/19 03:35 99.0 73 16 153/90 (111) 99 Nasal Cannula 2.0 99.0 02/12/19 22:24 98.3 82 16 130/87 (101) 97 Room Air 98.3 02/12/19 20:16 98.4 74 18 152/86 (108) 92 Room Air 98.4 02/12/19 20:15 Room Air 02/12/19 19:00 98.9 98.9 02/12/19 18:23 90 96 02/12/19 18:13 90 96 02/12/19 18:03 90 92 02/12/19 17:53 92 02/12/19 17:43 92 92 02/12/19 17:35 101.1 101.1 02/12/19 17:33 92 92 02/12/19 16:29 78 35 92 02/12/19 16:27 90 Room Air 02/12/19 16:19 82 38 90 02/12/19 16:01 90 16 92 02/12/19 15:59 88 93 02/12/19 15:49 90 93 02/12/19 15:18 101.2 106 28 139/89 (106) 94 Room Air 101.2 Laboratory Laboratory Laboratory Tests Test 02/12/19 20:33 02/12/19 22:10 02/13/19 04:39 02/13/19 04:50 Glucose (Fingerstick) 101 mg/dL (70-99) Troponin I Quantitative 0.030 ng/mL (0.000-0.055) 0.030 ng/mL (0.000-0.055) Urine Collection Type Unknown Urine Color Yellow Urine Clarity Clear Urine pH 5.5 Urine Specific [place] 1.015 Urine Protein Negative mg/dL (NEG-TRACE) Urine Glucose (UA) Negative mg/dL (NEG) Urine Ketones (Stick) Negative mg/dL (NEG) Urine Blood Trace (NEG) Urine Nitrite Negative (NEG) Urine Bilirubin Negative (NEG) Urine Urobilinogen Dipstick 1.0 mg/dL (0.2 mg/dL) Urine Leukocyte Esterase Small (NEG) Urine RBC Occ /HPF (0-2) Urine WBC 5-10 /HPF (0-4) Urine Squamous Epithelial Cells Few /LPF Urine Bacteria 0 /HPF (0-FEW) Urine Hyaline Casts Few /HPF Urine Mucus Mod /LPF Sodium Level 143 mmol/L (136-145) Potassium Level 3.4 mmol/L (3.5-5.1) Chloride Level 108 mmol/L (98-107) Carbon Dioxide Level 25 mmol/L (21-32) Anion Gap 10 (6-14) Blood Urea Nitrogen 11 mg/dL (8-26) Creatinine 1.1 mg/dL (0.7-1.3) Estimated GFR (Cockcroft-Gault) 77.9 Glucose Level 93 mg/dL (70-99) Calcium Level 8.3 mg/dL (8.5-10.1) Triglycerides Level 60 mg/dL (0-150) Cholesterol Level 96 mg/dL (0-200) LDL Cholesterol, Calculated 52 mg/dL (0-100) VLDL Cholesterol, Calculated 12 mg/dL (0-40) Non-HDL Cholesterol Calculated 64 mg/dL (0-129) HDL Cholesterol 32 mg/dL (40-60) Cholesterol/HDL Ratio 3.0 Procalcitonin 0.10 ng/mL (0.00-0.10) Test 02/13/19 07:30 02/13/19 11:25 Glucose (Fingerstick) 107 mg/dL (70-99) 129 mg/dL (70-99) Medication Medications Current Medications Acetaminophen (Tylenol) 500 mg PRN Q6HRS PRN PO MILD PAIN / TEMP; Start 02/13/19 at 08:30 Aspirin (Children'S Aspirin) 81 mg DAILY PO Last administered on 02/13/19at 09:53; Start 02/13/19 at 09:00 Atorvastatin Calcium (Lipitor) 20 mg HS PO ; Start 02/13/19 at 21:00 Azithromycin 250 mg/Sodium Chloride 250 ml @ 250 mls/hr Q24H IV ; Start 02/13/19 at 18:00 Brimonidine Tartrate (Alphagan) 1 drop BID OS Last administered on 02/13/19at 10:16; Start 02/12/19 at 21:00 Ceftriaxone Sodium (Rocephin) 1 gm Q24H IVP ; Start 02/13/19 at 18:00 Dexamethasone (Maxidex) 1 drop TID OU Last administered on 02/13/19at 13:48; Start 02/12/19 at 21:00 Dextrose (Dextrose 50%-Water Syringe) 12.5 gm PRN Q15MIN PRN IV SEE COMMENTS; Start 02/13/19 at 08:30 Hydrochlorothiazide (Hydrodiuril) 25 mg DAILY PO Last administered on 02/13/19at 13:47; Start 02/13/19 at 13:00 Insulin Human Lispro (HumaLOG) 0-9 UNITS TIDWMEALS SQ ; Start 02/13/19 at 12:00 Lactobacillus Rhamnosus (Culturelle) 1 cap BID PO Last administered on 02/13/19at 09:53; Start 02/13/19 at 09:00 Latanoprost (Xalatan) 1 drop QHS OU Last administered on 02/12/19at 21:51; Start 02/12/19 at 21:00 Losartan Potassium (Cozaar) 100 mg DAILY PO Last administered on 02/13/19 13:48; Start 02/13/19 at 13:00 Metformin HCl (Glucophage) 500 mg TIDWMEALS PO Last administered on 02/13/19 13:47; Start 02/13/19 at 08:00 Ondansetron HCl (Zofran) 4 mg PRN Q6HRS PRN IV NAUSEA/VOMITING; Start 02/13/19 at 08:30 Potassium Chloride (Klor-Con) 40 meq ONCE ONCE PO Last administered on 02/13/19 13:47; Start 02/13/19 at 11:45; Stop 02/13/19 at 11:46; Status DC Simvastatin (Zocor) 20 mg HS PO Last administered on 02/12/19 21:18; Start 02/12/19 at 21:00; Stop 02/13/19 at 12:57; Status DC Sodium Chloride 1,000 ml @ 75 mls/hr Q36H70D IV Last administered on 02/13/19 10:00; Start 02/12/19 at 21:00 Tamsulosin HCl (Flomax) 0.4 mg DAILY PO Last administered on 02/13/19 09:53; Start 02/13/19 at 09:00 Comment Review of Relevant I have reviewed the following items antoni (where applicable) has been applied. ÁLVARO NUEÑZ MD Feb 13, 2019 17:03
[2019-02-13] MEDS: cefTRIAXone IV Push 1 GM VIAL. IVP SCH (17:47)
[2019-02-13] MEDS ORDERED: AZITHROMYCIN 250 MG in IV NORMAL SALINE 250ML 250 ML IV SCH (18:00)
[2019-02-13 19:30] VITALS: BP 151/85
[2019-02-13] MEDS: guaiFENesin DM 200MG/20MG 10 ML SYRUP PO SCH (21:57)
[2019-02-13] MEDS: ATORVASTATIN CALCIUM 20 MG TABLET PO SCH (21:58)
[2019-02-13] MEDS: LATANOPROST 0.005% OPHTH SOLUTION 2.5ML BOTTLE. OU SCH (21:58)
[2019-02-13 22:06] VITALS: BP 151/90
[2019-02-14 02:30] VITALS: BP 136/74
[2019-02-14 07:00] VITALS: BP 155/83
--- NOTE | 2019-02-14 07:13 | PDOC ---
Infectious Disease Note Subjective Subjective Feels better overall but still has some cough that has been ongoing and causing some stomach muscle discomfort no confusion No F/C/S/N/V/D/SOA/Rash/CP/ROMERO Appetite coming back ROS ROS o/w neg Vital Sign Vital Signs Vital Signs Date Time Temp Pulse Resp B/P (MAP) Pulse Ox O2 Delivery O2 Flow Rate FiO2 02/14/19 02:30 98.2 61 16 136/74 (94) 93 Room Air 98.2 02/13/19 15:00 2.0 Physical Exam PHYSICAL EXAM CONSTITUTIONAL: He has chronic eye changes. Normal conjunctivae. Oral cavity, pharynx is dry. NECK: Supple. Neck was without JVD. LUNGS: mild wheeze today HEART: S1, S2. ABDOMEN: Soft, nontender, nondistended with positive bowel sounds. EXTREMITIES: Without clubbing, cyanosis or gross edema. SKIN: Warm to touch without signs of rash. NEUROLOGIC: He answers questions appropriately, moves all extremities. PSYCHIATRIC: Affect is pleasant. Labs Lab Laboratory Tests Test 02/13/19 07:30 02/13/19 11:25 02/13/19 16:52 02/13/19 20:45 Glucose (Fingerstick) 107 mg/dL (70-99) 129 mg/dL (70-99) 100 mg/dL (70-99) 94 mg/dL (70-99) Objective Assessment Fever - resolved Cough - ? post viral Encephalopathy - ? TIA - has greatly improved THIERNO - improved DM Plan Plan of Care Cont Rocephin/Azithromycin but change to po CXR PA/LA Incentive spirometry F/u labs and cults Await primary and Neuro F/u May need Pulm MAGDALENE Shepherd MD Feb 14, 2019 07:13
[2019-02-14] MEDS: INSULIN LISPRO 300 UNITS/3 ML INSULN.PEN. SQ SCH ×3 (08:00→16:51)
[2019-02-14] MEDS ORDERED: AZIT250T6 PO (08:12)
[2019-02-14] MEDS ORDERED: GUAI5SYR PO (08:12)
[2019-02-14] MEDS ORDERED: HYDR-2145 PO (08:12)
--- NOTE | 2019-02-14 08:13 | SNU/HH DC ---
DISCHARGE WITH HOME HEALTH DISCHARGE INFORMATION: Discharge Date: Feb 14, 2019 Final Diagnosis: Problems Medical Problems: (1) Confusion Status: Acute (2) Fever Status: Acute (3) Upper respiratory infection Status: Acute Condition on Discharge: Stable CODE STATUS: Code Status: Full HOME HEALTH: Face to Face: I certify this patient is under my care and that I, or a nurse practitioner or physician's staffing assistant working with me, had a face to face encounter that meets the physician face to face encounter requirements with this patient on []. Medical Complications: Dementia, HTN RN For Eval/Treatment: Yes Physical Therapy For: Evalulation/Treatment Occupational Therapy For: Evaluation/Treatment Speech Language Pathology For: Evaluation/Treatment Home Health Aide For: Self-care LIBRARY TECHNICIAN For: Community Resources Pt Meets Homebound Status: Fatigue w/ amb. POST DISCHARGE ORDERS: Activity Instructions for Disc: Activity as tolerated Weight Bearing Status after Di: No restrictions DIET AFTER DISCHARGE: Cardiac CHECKS AFTER DISCHARGE: Checks after discharge: Check blood press - daily FOLLOW-UP: PCP to follow Home Health: pcp re high bp, high fall risk TREATMENT/EQUIPMENT ORDERS: Adaptive Equipment Issued: None CERTIFICATION STATEMENT: Certification Statement: Certification Statement: Based on the above finding, I certify that this patient is confined to the home and needs intermittent half-way care, physical therapy and/or speech therapy, or continues to need occupational therapy.~ This patient is under my care, and I have initiated the establishment of the plan of care.~ This patient will be followed by myself or a community physician who will periodically review the plan of care. Home Meds Active Scripts Azithromycin (AZITHROMYCIN TABLET) 250 Mg Tablet, 250 MG PO Q24H for uri MDD 1, #4 TAB Prov:ARELY ALAMO MD 02/14/19 Guaifenesin/Dextromethorphan (GUAIFENESIN DM SYRUP) 5 Ml Syrup, 10 ML PO QID for cough MDD 1, #20 MISC Prov:ARELY ALAMO MD 02/14/19 Hydrochlorothiazide (HYDROCHLOROTHIAZIDE TABLET ) 25 Mg Tablet, 25 MG PO DAILY for htn MDD 1, #60 TAB Prov:ARELY ALAMO MD 02/14/19 Reported Medications Olmesartan/Hydrochlorothiazide (BENICAR HCT 40-25 MG TABLET) 1 Each Tablet, 1 EACH PO DAILY for HTN, TAB 02/13/19 Colchicine (COLCRYS) 0.6 Mg Tablet, 0.6 MG PO DAILY for gout, TAB 02/13/19 Ergocalciferol (Vitamin D2) (VITAMIN D2) 50,000 Unit Capsule, 87882 UNIT PO WEEKLY for supplement, CAP 02/13/19 Tadalafil (CIALIS) 5 Mg Tablet, 5 MG PO DAILY PRN for prior to sexual activity, TAB 02/13/19 Meloxicam (MELOXICAM) 15 Mg Tablet, 15 MG PO DAILY PRN for PAIN, TAB 02/13/19 Cyclobenzaprine Hcl (CYCLOBENZAPRINE HCL) 10 Mg Tablet, 10 MG PO TID PRN for muscle spasm, TAB 02/13/19 Cyclobenzaprine Hcl (CYCLOBENZAPRINE HCL) 10 Mg Tablet, 10 MG PO TID PRN for MUSCLE SPASTICITY, TAB 02/13/19 Docusate Sodium (DOCUSATE SODIUM) 100 Mg Capsule, 100 MG PO BID PRN for CONSTIPATION, CAP 02/13/19 Atorvastatin Calcium (ATORVASTATIN CALCIUM) 20 Mg Tablet, 20 MG PO HS for FOR CHOLESTEROL, #30 TAB 0 Refills 02/13/19 Cetirizine Hcl (CETIRIZINE HCL) 10 Mg Tablet, 10 MG PO DAILY for allergies, TAB 02/13/19 Indomethacin (INDOMETHACIN) 50 Mg Capsule, 50 MG PO TID PRN for gout, CAP 02/13/19 Linaclotide (LINZESS) 145 Mcg Capsule, 145 MCG PO DAILY07 for IRRITABLE BOWEL, CAP 02/13/19 Latanoprost (LATANOPROST) 2.5 Ml Drops, 1 DROP EACHEYE QHS for , #7.5 ML 3 Refills 02/12/19 Brimonidine Tartrate (ALPHAGAN P) 5 Ml Drops, 1 DROP LEFTEYE BID for , #15 ML 3 Refills 02/12/19 Prednisolone Acetate (PREDNISOLONE ACETATE) 5 Ml Drops.susp, 1 DROP EACHEYE TID for , #5 ML 02/12/19 Metformin Hcl (METFORMIN HCL) 500 Mg Tablet, 500 MG PO TIDBFRMEAL for ANTI- DIABETIC, TAB 0 Refills 02/12/19 Aspirin (ASPIRIN) 81 Mg Tab.chew, 1 TAB PO DAILY for , #30 TAB 3 Refills 02/12/19 Tamsulosin Hcl (TAMSULOSIN HCL) 0.4 Mg Cap.er.24h, 0.4 MG PO DAILY, #30 Gave this morning Take tomorrow morning 11/12/15 Discontinued Reported Medications Olmesartan/Hydrochlorothiazide (BENICAR HCT 40-25 MG TABLET) 1 Each Tablet, 1 EACH PO DAILY for HTN, TAB 02/13/19 Simvastatin (SIMVASTATIN) 20 Mg Tablet, 1 TAB PO DAILY, #30 Take tonight before bed 11/12/15 Nph, Human Insulin Isophane (HUMULIN N KWIKPEN) 100 Unit/1 Ml Insuln.pen, 15-20 UNITS SQ BID, #15 Gave 15 units this morning Take 15 units this evening at bedtime 11/12/15 Insulin Lispro (HUMALOG) 100 Unit/1 Ml Insuln.pen, 7 UNITS SQ TIDWMEALS, #15 Gave 7 units with lunch today Take this evening with dinner 11/12/15 Hydrocodone Bit/Acetaminophen (HYDROCODONE-APAP 7.5-325 ) 1 Each Tablet, 1-2 TAB PO Q8HRS PRN for PAIN, #100 Not given on this admission Take as needed at home 11/12/15 Olmesartan/Hydrochlorothiazide (BENICAR HCT 40-25 MG TABLET) 1 Each Tablet, 1 TAB PO DAILY, #30 Gave this am Take tomorrow morning 11/12/15 ARELY ALAMO MD Feb 14, 2019 08:13
[2019-02-14] MEDS: BRIMONIDINE 0.2% OPHTH SOLUTION 5ML BOTTLE. OS SCH ×2 (08:19→21:17)
[2019-02-14] MEDS: DEXAMETHASONE 0.1% OPHTH SOLUTION 5ML BOTTLE. OU SCH ×3 (08:20→21:17)
[2019-02-14] MEDS: guaiFENesin DM 200MG/20MG 10 ML SYRUP PO SCH ×4 (08:21→21:17)
[2019-02-14] MEDS: ASPIRIN CHEWABLE 81 MG TABLET. PO SCH (08:21)
[2019-02-14] MEDS: metFORMIN 500 MG TABLET PO SCH ×3 (08:21→17:18)
[2019-02-14] MEDS: LOSARTAN POTASSIUM 50 MG TABLET. PO SCH (08:21)
[2019-02-14] MEDS: hydroCHLOROthiazide 25 MG TABLET PO SCH (08:21)
[2019-02-14] MEDS: TAMSULOSIN 0.4 MG CAP.ER.24H. PO SCH (08:22)
[2019-02-14] MEDS: LACTOBACILLUS RHAMNOSUS GG 1 CAPSULE. PO SCH ×2 (08:22→21:16)
--- NOTE | 2019-02-14 08:56 | PDOC ---
PROGRESS NOTES Assessment Problems Medical Problems: (1) Confusion Status: Acute (2) Fever Status: Acute (3) Upper respiratory infection Status: Acute Left side weakness, no evidence of acute CVA. Metabolic encephalopathy. Plan Discharge okay from neuro point of view Treat medical diseases. Subjective No complaints, wants to go home Objective Vital Signs Date Time Temp Pulse Resp B/P (MAP) Pulse Ox O2 Delivery O2 Flow Rate FiO2 02/14/19 08:21 57 155/83 02/14/19 07:00 97.4 18 94 Room Air 97.4 02/13/19 15:00 2.0 Intake and Output 02/14/19 07:00 Intake Total 618 ml Output Total 2325 ml Balance -1707 ml Intake Oral 318 ml IV Total 300 ml Output Urine Total 2325 ml PHYSICAL EXAM Alert. Oriented to time, place and person. PERRL. EOMI. CN: no focal findings. Muscle tone: normal. Muscle strength: 5-/5 DTR: 1+ Plantar reflex: flexor Gait: not examined in bed. Sensory exam: no abnormal findings. No cerebellar signs elicited. Review of Relevant I have reviewed the following items antoni (where applicable) has been applied. Labs Laboratory Tests Test 02/12/19 15:29 02/12/19 15:45 02/12/19 16:20 02/12/19 20:33 Glucose (Fingerstick) 202 mg/dL (70-99) 101 mg/dL (70-99) White Blood Count 6.8 x10^3/uL (4.0-11.0) Red Blood Count 4.54 x10^6/uL (4.30-5.70) Hemoglobin 13.5 g/dL (13.0-17.5) Hematocrit 41.6 % (39.0-53.0) Mean Corpuscular Volume 92 fL (79-100) Mean Corpuscular Hemoglobin 30 pg (25-35) Mean Corpuscular Hemoglobin Concent 33 g/dL (31-37) Red Cell Distribution Width 14.7 % (11.5-14.5) Platelet Count 207 x10^3/uL (140-400) Neutrophils (%) (Auto) 71 % (31-73) Lymphocytes (%) (Auto) 21 % (24-48) Monocytes (%) (Auto) 7 % (0-9) Eosinophils (%) (Auto) 0 % (0-3) Basophils (%) (Auto) 1 % (0-3) Neutrophils # (Auto) 4.8 x10^3uL (1.8-7.7) Lymphocytes # (Auto) 1.5 x10^3/uL (1.0-4.8) Monocytes # (Auto) 0.5 x10^3/uL (0.0-1.1) Eosinophils # (Auto) 0.0 x10^3/uL (0.0-0.7) Basophils # (Auto) 0.0 x10^3/uL (0.0-0.2) Prothrombin Time 14.4 SEC (11.7-14.0) Prothromb Time International Ratio 1.2 (0.8-1.1) Activated Partial Thromboplast Time 40 SEC (24-38) Sodium Level 140 mmol/L (136-145) Potassium Level 3.5 mmol/L (3.5-5.1) Chloride Level 104 mmol/L (98-107) Carbon Dioxide Level 29 mmol/L (21-32) Anion Gap 7 (6-14) Blood Urea Nitrogen 14 mg/dL (8-26) Creatinine 1.6 mg/dL (0.7-1.3) Estimated GFR (Cockcroft-Gault) 50.6 BUN/Creatinine Ratio 9 (6-20) Glucose Level 101 mg/dL (70-99) Lactic Acid Level 1.7 mmol/L (0.4-2.0) Calcium Level 9.2 mg/dL (8.5-10.1) Total Bilirubin 0.6 mg/dL (0.2-1.0) Aspartate Amino Transf (AST/SGOT) 24 U/L (15-37) Alanine Aminotransferase (ALT/SGPT) 14 U/L (16-63) Alkaline Phosphatase 41 U/L (46-116) Creatine Kinase 718 U/L (39-308) Creatine Kinase MB (Mass) 0.7 ng/mL (0.0-3.6) Creatine Kinase MB Relative Index 0.1 % (0-4) Troponin I Quantitative < 0.017 ng/mL (0.000-0.055) WE-Clg-T-Type Natriuretic Peptide 276 pg/mL (0-449) Total Protein 8.2 g/dL (6.4-8.2) Albumin 3.7 g/dL (3.4-5.0) Albumin/Globulin Ratio 0.8 (1.0-1.7) Vitamin B12 Level 260 pg/mL (247-911) Thyroid Stimulating Hormone (TSH) 1.124 uIU/mL (0.358-3.74) Influenza Type A Antigen Negative (NEGATIVE) Influenza Type B Antigen Negative (NEGATIVE) Test 02/12/19 22:10 02/13/19 04:39 02/13/19 04:50 02/13/19 07:30 Troponin I Quantitative 0.030 ng/mL (0.000-0.055) 0.030 ng/mL (0.000-0.055) Urine Collection Type Unknown Urine Color Yellow Urine Clarity Clear Urine pH 5.5 Urine Specific Ringold 1.015 Urine Protein Negative mg/dL (NEG-TRACE) Urine Glucose (UA) Negative mg/dL (NEG) Urine Ketones (Stick) Negative mg/dL (NEG) Urine Blood Trace (NEG) Urine Nitrite Negative (NEG) Urine Bilirubin Negative (NEG) Urine Urobilinogen Dipstick 1.0 mg/dL (0.2 mg/dL) Urine Leukocyte Esterase Small (NEG) Urine RBC Occ /HPF (0-2) Urine WBC 5-10 /HPF (0-4) Urine Squamous Epithelial Cells Few /LPF Urine Bacteria 0 /HPF (0-FEW) Urine Hyaline Casts Few /HPF Urine Mucus Mod /LPF Sodium Level 143 mmol/L (136-145) Potassium Level 3.4 mmol/L (3.5-5.1) Chloride Level 108 mmol/L (98-107) Carbon Dioxide Level 25 mmol/L (21-32) Anion Gap 10 (6-14) Blood Urea Nitrogen 11 mg/dL (8-26) Creatinine 1.1 mg/dL (0.7-1.3) Estimated GFR (Cockcroft-Gault) 77.9 Glucose Level 93 mg/dL (70-99) Calcium Level 8.3 mg/dL (8.5-10.1) Triglycerides Level 60 mg/dL (0-150) Cholesterol Level 96 mg/dL (0-200) LDL Cholesterol, Calculated 52 mg/dL (0-100) VLDL Cholesterol, Calculated 12 mg/dL (0-40) Non-HDL Cholesterol Calculated 64 mg/dL (0-129) HDL Cholesterol 32 mg/dL (40-60) Cholesterol/HDL Ratio 3.0 Procalcitonin 0.10 ng/mL (0.00-0.10) Glucose (Fingerstick) 107 mg/dL (70-99) Test 02/13/19 11:25 02/13/19 16:52 02/13/19 20:45 02/14/19 07:22 Glucose (Fingerstick) 129 mg/dL (70-99) 100 mg/dL (70-99) 94 mg/dL (70-99) 94 mg/dL (70-99) Laboratory Tests Test 02/13/19 11:25 02/13/19 16:52 02/13/19 20:45 02/14/19 07:22 Glucose (Fingerstick) 129 mg/dL (70-99) 100 mg/dL (70-99) 94 mg/dL (70-99) 94 mg/dL (70-99) Medications Current Medications Acetaminophen (Tylenol) 650 mg 1X ONCE PO Last administered on 02/12/19 16:36; Start 02/12/19 at 15:30; Stop 02/12/19 at 15:35; Status DC Albuterol Sulfate (Ventolin Neb Soln) 2.5 mg 1X ONCE NEB Last administered on 02/12/19 16:27; Start 02/12/19 at 16:00; Stop 02/12/19 at 16:01; Status DC Aspirin (Derik Aspirin) 325 mg 1X ONCE PO Last administered on 02/12/19 16:34; Start 02/12/19 at 16:15; Stop 02/12/19 at 16:16; Status DC Ceftriaxone Sodium (Rocephin) 1 gm 1X ONCE IVP Last administered on 02/12/19 17:37; Start 02/12/19 at 16:15; Stop 02/12/19 at 16:16; Status DC Azithromycin 250 ml @ 250 mls/hr 1X ONCE IV Last administered on 02/12/19 17:37; Start 02/12/19 at 16:15; Stop 02/12/19 at 17:14; Status DC Sodium Chloride 1,000 ml @ 1,000 mls/hr 1X ONCE IV Last administered on 01/21 16:19; Start 02/12/19 at 16:15; Stop 02/12/19 at 17:14; Status DC Gadobutrol (Gadavist) 9 mmol 1X ONCE IV Last administered on 02/12/19at 17:07; Start 02/12/19 at 17:00; Stop 02/12/19 at 17:03; Status DC Aspirin (Children'S Aspirin) 81 mg DAILY PO Last administered on 02/14/19 08:21; Start 02/13/19 at 09:00 Tamsulosin HCl (Flomax) 0.4 mg DAILY PO Last administered on 02/14/19at 08:22; Start 02/13/19 at 09:00 Brimonidine Tartrate (Alphagan) 1 drop BID OS Last administered on 02/14/19 08:19; Start 02/12/19 at 21:00 Latanoprost (Xalatan) 1 drop QHS OU Last administered on 02/13/19at 21:58; Start 02/12/19 at 21:00 Metformin HCl (Glucophage) 500 mg TIDWMEALS PO Last administered on 02/14/19at 08:21; Start 02/13/19 at 08:00 Dexamethasone (Maxidex) 1 drop TID OU Last administered on 02/14/19at 08:20; Start 02/12/19 at 21:00 Simvastatin (Zocor) 20 mg HS PO Last administered on 02/12/19at 21:18; Start 02/12/19 at 21:00; Stop 02/13/19 at 12:57; Status DC Sodium Chloride 1,000 ml @ 75 mls/hr [id number] IV Last administered on 02/13/19at 10:00; Start 02/12/19 at 21:00 Ceftriaxone Sodium (Rocephin) 1 gm Q24H IVP Last administered on 02/13/19at 17:47; Start 02/13/19 at 18:00 Azithromycin 250 mg/Sodium Chloride 250 ml @ 250 mls/hr Q24H IV Last administered on 02/13/19at 17:47; Start 02/13/19 at 18:00; Stop 02/14/19 at 08:01; Status DC Insulin Human Lispro (HumaLOG) 0-9 UNITS TIDWMEALS SQ ; Start 02/13/19 at 12:00 Dextrose (Dextrose 50%-Water Syringe) 12.5 gm PRN Q15MIN PRN IV SEE COMMENTS; Start 02/13/19 at 08:30 Acetaminophen (Tylenol) 500 mg PRN Q6HRS PRN PO MILD PAIN / TEMP; Start 02/13/19 at 08:30 Ondansetron HCl (Zofran) 4 mg PRN Q6HRS PRN IV NAUSEA/VOMITING; Start 02/13/19 at 08:30 Lactobacillus Rhamnosus (Culturelle) 1 cap BID PO Last administered on 02/14/19at 08:22; Start 02/13/19 at 09:00 Potassium Chloride (Klor-Con) 40 meq ONCE ONCE PO Last administered on 02/13/19at 13:47; Start 02/13/19 at 11:45; Stop 02/13/19 at 11:46; Status DC Atorvastatin Calcium (Lipitor) 20 mg HS PO Last administered on 02/13/19at 21:58; Start 02/13/19 at 21:00 Losartan Potassium (Cozaar) 100 mg DAILY PO Last administered on 02/14/19at 08:21; Start 02/13/19 at 13:00 Hydrochlorothiazide (Hydrodiuril) 25 mg DAILY PO Last administered on 02/14/19at 08:21; Start 02/13/19 at 13:00 Guaifenesin (Robitussin Dm) 10 ml QID PO Last administered on 02/14/19at 08:21; Start 02/13/19 at 19:00 Azithromycin (Zithromax) 250 mg Q24H PO ; Start 02/14/19 at 18:00 Active Scripts Active Azithromycin Tablet (Azithromycin) 250 Mg Tablet 250 Mg PO Q24H MDD 1 Guaifenesin Dm Syrup (Guaifenesin/Dextromethorphan) 5 Ml Syrup 10 Ml PO QID MDD 1 Hydrochlorothiazide Tablet (Hydrochlorothiazide) 25 Mg Tablet 25 Mg PO DAILY MDD 1 Reported Benicar Hct 40-25 Mg Tablet (Olmesartan/Hydrochlorothiazide) 1 Each Tablet 1 Each PO DAILY Colcrys (Colchicine) 0.6 Mg Tablet 0.6 Mg PO DAILY Vitamin D2 (Ergocalciferol (Vitamin D2)) 50,000 Unit Capsule 50,000 Unit PO WEEKLY Cialis (Tadalafil) 5 Mg Tablet 5 Mg PO DAILY PRN Meloxicam 15 Mg Tablet 15 Mg PO DAILY PRN Cyclobenzaprine Hcl 10 Mg Tablet 10 Mg PO TID PRN Cyclobenzaprine Hcl 10 Mg Tablet 10 Mg PO TID PRN Docusate Sodium 100 Mg Capsule 100 Mg PO BID PRN Atorvastatin Calcium 20 Mg Tablet 20 Mg PO HS Cetirizine Hcl 10 Mg Tablet 10 Mg PO DAILY Indomethacin 50 Mg Capsule 50 Mg PO TID PRN Linzess (Linaclotide) 145 Mcg Capsule 145 Mcg PO DAILY07 Latanoprost 2.5 Ml Drops 1 Drop EACHEYE QHS Alphagan P (Brimonidine Tartrate) 5 Ml Drops 1 Drop LEFTEYE BID Prednisolone Acetate 5 Ml Drops.susp 1 Drop EACHEYE TID Metformin Hcl 500 Mg Tablet 500 Mg PO TIDBFRMEAL Aspirin 81 Mg Tab.chew 1 Tab PO DAILY Tamsulosin Hcl 0.4 Mg Cap.er.24h 0.4 Mg PO DAILY Gave this morning Take tomorrow morning Vitals/I & O Vital Sign - Last 24 Hours 02/13/19 02/13/19 02/13/19 02/13/19 11:00 13:48 15:00 19:30 Temp 98.1 98.0 98.4 98.1 98.0 98.4 Pulse 70 62 63 63 Resp 18 18 18 B/P (MAP) 136/83 (100) 136/83 156/84 (108) 151/85 (107) Pulse Ox 95 95 94 O2 Delivery Nasal Cannula Nasal Cannula Room Air O2 Flow Rate 2.0 2.0 02/13/19 02/13/19 02/14/19 02/14/19 19:40 22:06 02:30 07:00 Temp 97.8 98.2 97.4 97.8 98.2 97.4 Pulse 69 61 59 Resp 16 16 18 B/P (MAP) 151/90 (110) 136/74 (94) 155/83 (107) Pulse Ox 94 93 94 O2 Delivery Room Air Room Air Room Air Room Air 02/14/19 08:21 Pulse 57 B/P (MAP) 155/83 Intake and Output 02/13/19 02/13/19 02/14/19 15:00 23:00 07:00 Intake Total 418 ml 200 ml Output Total 150 ml 1350 ml 825 ml Balance -150 ml -932 ml -625 ml Images Brain MRI, With and Without Contrast, 02/12: There is moderate motion artifact and postcontrast imaging. The technologist noted the patient was unable to remain motionless due to coughing fits. There is no mass effect or extraaxial fluid collections. There is no hydrocephalus. There is mild diffuse cerebral atrophy. There is mild patchy white matter signal abnormality in the periventricular and subcortical white matter with high signal on T2 in the low to intermediate signal on T1. Diffusion weighted sequences demonstrate no imaging evidence of acute ischemia. There is no mass. There is no gross bleed. There is no abnormal enhancement. Impression: 1. Mild diffuse age expected atrophy. 2.Mild diffuse white matter disease is nonspecific but likely secondary to chronic small vessel disease. 3. No acute findings. BALDEMAR CHADWICK MD Feb 14, 2019 08:56
--- NOTE | 2019-02-14 09:45 | PDOC3 ---
Discharge Summary Visit Information Date of Admission: Feb 12, 2019 Date of Discharge: Feb 14, 2019 Admitting Diagnosis Comment: Encephalopathy in the background of fevers resolved AK I resolved TIA versus reversible ischemic syndrome, neg CVA in MRI Mild hypokalemia Flu negative Final Diagnosis Problems Medical Problems: (1) Confusion Status: Acute (2) Fever Status: Acute (3) Upper respiratory infection Status: Acute Brief Hospital Course Allergies Allergies Coded Allergies Type Severity Reaction Last Updated Verified No Known Drug Allergies 12/15/16 No Vital Signs Vital Signs Date Time Temp Pulse Resp B/P (MAP) Pulse Ox O2 Delivery O2 Flow Rate FiO2 02/14/19 08:21 57 155/83 02/14/19 07:00 97.4 18 94 Room Air 97.4 02/13/19 15:00 2.0 Lab Results Laboratory Tests Test 02/12/19 15:29 02/12/19 15:45 02/12/19 16:20 02/12/19 20:33 Glucose (Fingerstick) 202 mg/dL (70-99) 101 mg/dL (70-99) White Blood Count 6.8 x10^3/uL (4.0-11.0) Red Blood Count 4.54 x10^6/uL (4.30-5.70) Hemoglobin 13.5 g/dL (13.0-17.5) Hematocrit 41.6 % (39.0-53.0) Mean Corpuscular Volume 92 fL (79-100) Mean Corpuscular Hemoglobin 30 pg (25-35) Mean Corpuscular Hemoglobin Concent 33 g/dL (31-37) Red Cell Distribution Width 14.7 % (11.5-14.5) Platelet Count 207 x10^3/uL (140-400) Neutrophils (%) (Auto) 71 % (31-73) Lymphocytes (%) (Auto) 21 % (24-48) Monocytes (%) (Auto) 7 % (0-9) Eosinophils (%) (Auto) 0 % (0-3) Basophils (%) (Auto) 1 % (0-3) Neutrophils # (Auto) 4.8 x10^3uL (1.8-7.7) Lymphocytes # (Auto) 1.5 x10^3/uL (1.0-4.8) Monocytes # (Auto) 0.5 x10^3/uL (0.0-1.1) Eosinophils # (Auto) 0.0 x10^3/uL (0.0-0.7) Basophils # (Auto) 0.0 x10^3/uL (0.0-0.2) Prothrombin Time 14.4 SEC (11.7-14.0) Prothromb Time International Ratio 1.2 (0.8-1.1) Activated Partial Thromboplast Time 40 SEC (24-38) Sodium Level 140 mmol/L (136-145) Potassium Level 3.5 mmol/L (3.5-5.1) Chloride Level 104 mmol/L (98-107) Carbon Dioxide Level 29 mmol/L (21-32) Anion Gap 7 (6-14) Blood Urea Nitrogen 14 mg/dL (8-26) Creatinine 1.6 mg/dL (0.7-1.3) Estimated GFR (Cockcroft-Gault) 50.6 BUN/Creatinine Ratio 9 (6-20) Glucose Level 101 mg/dL (70-99) Lactic Acid Level 1.7 mmol/L (0.4-2.0) Calcium Level 9.2 mg/dL (8.5-10.1) Total Bilirubin 0.6 mg/dL (0.2-1.0) Aspartate Amino Transf (AST/SGOT) 24 U/L (15-37) Alanine Aminotransferase (ALT/SGPT) 14 U/L (16-63) Alkaline Phosphatase 41 U/L (46-116) Creatine Kinase 718 U/L (39-308) Creatine Kinase MB (Mass) 0.7 ng/mL (0.0-3.6) Creatine Kinase MB Relative Index 0.1 % (0-4) Troponin I Quantitative < 0.017 ng/mL (0.000-0.055) MM-Dwc-Z-Type Natriuretic Peptide 276 pg/mL (0-449) Total Protein 8.2 g/dL (6.4-8.2) Albumin 3.7 g/dL (3.4-5.0) Albumin/Globulin Ratio 0.8 (1.0-1.7) Vitamin B12 Level 260 pg/mL (247-911) Thyroid Stimulating Hormone (TSH) 1.124 uIU/mL (0.358-3.74) Influenza Type A Antigen Negative (NEGATIVE) Influenza Type B Antigen Negative (NEGATIVE) Test 02/12/19 22:10 02/13/19 04:39 02/13/19 04:50 02/13/19 07:30 Troponin I Quantitative 0.030 ng/mL (0.000-0.055) 0.030 ng/mL (0.000-0.055) Urine Collection Type Unknown Urine Color Yellow Urine Clarity Clear Urine pH 5.5 Urine Specific [place] 1.015 Urine Protein Negative mg/dL (NEG-TRACE) Urine Glucose (UA) Negative mg/dL (NEG) Urine Ketones (Stick) Negative mg/dL (NEG) Urine Blood Trace (NEG) Urine Nitrite Negative (NEG) Urine Bilirubin Negative (NEG) Urine Urobilinogen Dipstick 1.0 mg/dL (0.2 mg/dL) Urine Leukocyte Esterase Small (NEG) Urine RBC Occ /HPF (0-2) Urine WBC 5-10 /HPF (0-4) Urine Squamous Epithelial Cells Few /LPF Urine Bacteria 0 /HPF (0-FEW) Urine Hyaline Casts Few /HPF Urine Mucus Mod /LPF Sodium Level 143 mmol/L (136-145) Potassium Level 3.4 mmol/L (3.5-5.1) Chloride Level 108 mmol/L (98-107) Carbon Dioxide Level 25 mmol/L (21-32) Anion Gap 10 (6-14) Blood Urea Nitrogen 11 mg/dL (8-26) Creatinine 1.1 mg/dL (0.7-1.3) Estimated GFR (Cockcroft-Gault) 77.9 Glucose Level 93 mg/dL (70-99) Calcium Level 8.3 mg/dL (8.5-10.1) Triglycerides Level 60 mg/dL (0-150) Cholesterol Level 96 mg/dL (0-200) LDL Cholesterol, Calculated 52 mg/dL (0-100) VLDL Cholesterol, Calculated 12 mg/dL (0-40) Non-HDL Cholesterol Calculated 64 mg/dL (0-129) HDL Cholesterol 32 mg/dL (40-60) Cholesterol/HDL Ratio 3.0 Procalcitonin 0.10 ng/mL (0.00-0.10) Glucose (Fingerstick) 107 mg/dL (70-99) Test 02/13/19 11:25 02/13/19 16:52 02/13/19 20:45 02/14/19 07:22 Glucose (Fingerstick) 129 mg/dL (70-99) 100 mg/dL (70-99) 94 mg/dL (70-99) 94 mg/dL (70-99) Laboratory Tests Test 02/13/19 11:25 02/13/19 16:52 02/13/19 20:45 02/14/19 07:22 Glucose (Fingerstick) 129 mg/dL (70-99) 100 mg/dL (70-99) 94 mg/dL (70-99) 94 mg/dL (70-99) Brief Hospital Course Mr. Norton is a 78 old male who lives at home with family, symptoms started of cough after going out last Sunday. Flu negative. But was admitted because of some confusion and fever. Neurology workup including an MRI brain is negative. ID and pulmonary on board. Seems like viral in origin. 2 views chest x-ray is pending. But x-ray portable on admission was unimpressive. Needs home health on discharge. Some coughing but still seems to be persistent and causing some muscle skeletal pain hence advised pulmonary consult. We have consulted, but still possible might be able to DC later if chest x-ray is unremarkable. MAr done-on chart Consults neuro, ID, pulmonary Discharge disposition home health Discharge Information Condition at Discharge: Improved, Stable Follow Up: Weeks (pcp 4 weeks or as scheduled) Disposition/Orders: D/C to Home w/ HH Scheduled Aspirin (Aspirin) 81 Mg Tab.chew, 1 TAB PO DAILY for , #30 Ref 3 (Reported) Entered as Reported by: Jb Bryant on 02/12/192044 Last Action: Continued on 02/12/192045 by Jb Bryant Atorvastatin Calcium (Atorvastatin Calcium) 20 Mg Tablet, 20 MG PO HS for FOR CHOLESTEROL, #30 Ref 0 (Reported) Entered as Reported by: RAMBO BRAR on 02/13/19 1251 Last Action: Continued on 02/13/191257 by RAMBO BRAR Azithromycin (Azithromycin Tablet) 250 Mg Tablet, 250 MG PO Q24H for uri MDD 1, #4 Prescribed by: ARELY ALAMO on 02/14/19 0812 Brimonidine Tartrate (Alphagan P) 5 Ml Drops, 1 DROP LEFTEYE BID for , #15 Ref 3 (Reported) Entered as Reported by: Jb Bryant on 02/12/192044 Last Action: Converted on 02/12/192045 by Jb Bryant Cetirizine Hcl (Cetirizine Hcl) 10 Mg Tablet, 10 MG PO DAILY for allergies, (Reported) Entered as Reported by: RAMBO BRAR on 02/13/191250 Last Action: New Order on 02/13/191250 by RAMBO BRAR Colchicine (Colcrys) 0.6 Mg Tablet, 0.6 MG PO DAILY for gout, (Reported) Entered as Reported by: RAMBO BRAR on 02/13/191250 Last Action: New Order on 02/13/191250 by RAMBO BRAR Ergocalciferol (Vitamin D2) (Vitamin D2) 50,000 Unit Capsule, 50,000 UNIT PO WEEKLY for supplement, (Reported) Entered as Reported by: RAMBO BRAR on 02/13/191250 Last Action: New Order on 02/13/191250 by RAMBO BRAR Guaifenesin/Dextromethorphan (Guaifenesin Dm Syrup) 5 Ml Syrup, 10 ML PO QID for cough MDD 1, #20 Prescribed by: ARELY ALAMO on 02/14/19 08 Hydrochlorothiazide (Hydrochlorothiazide Tablet ) 25 Mg Tablet, 25 MG PO DAILY for htn MDD 1, #60 Prescribed by: ARELY ALAMO on 02/14/19 0812 Latanoprost (Latanoprost) 2.5 Ml Drops, 1 DROP EACHEYE QHS for , #7.5 Ref 3 (Reported) Entered as Reported by: Jb Bryant on 02/12/192044 Last Action: Converted on 02/12/192045 by Jb Bryant Linaclotide (Linzess) 145 Mcg Capsule, 145 MCG PO DAILY07 for IRRITABLE BOWEL, (Reported) Entered as Reported by: RAMBO BRAR on 02/13/191250 Last Action: New Order on 02/13/191250 by RAMBO BRAR Metformin Hcl (Metformin Hcl) 500 Mg Tablet, 500 MG PO TIDBFRMEAL for ANTI- DIABETIC, Ref 0 (Reported) Entered as Reported by: Jb Bryant on 02/12/192044 Last Action: Converted on 02/12/192045 by Jb Bryant Olmesartan/Hydrochlorothiazide (Benicar Hct 40-25 Mg Tablet) 1 Each Tablet, 1 EACH PO DAILY for HTN, (Reported) Entered as Reported by: RAMBO BRAR on 02/13/191250 Last Action: Converted on 02/13/191257 by RAMBO BRAR Prednisolone Acetate (Prednisolone Acetate) 5 Ml Drops.susp, 1 DROP EACHEYE TID for , #5 (Reported) Entered as Reported by: Jb Bryant on 02/12/192044 Last Action: Converted on 02/12/192045 by Jb Bryant Tamsulosin Hcl (Tamsulosin Hcl) 0.4 Mg Cap.er.24h, 0.4 MG PO DAILY, #30 (Reported) Gave this morning Take tomorrow morning Entered as Reported by: JORGE ANN RN on 11/12/15 1636 Last Action: Continued on 02/12/192045 by Jb Bryant Scheduled PRN Cyclobenzaprine Hcl (Cyclobenzaprine Hcl) 10 Mg Tablet, 10 MG PO TID PRN for MUSCLE SPASTICITY, (Reported) Entered as Reported by: RAMBO BRAR on 02/13/191250 Last Action: New Order on 02/13/191250 by RAMBO BRAR Cyclobenzaprine Hcl (Cyclobenzaprine Hcl) 10 Mg Tablet, 10 MG PO TID PRN for muscle spasm, (Reported) Entered as Reported by: RAMBO BRAR on 02/13/191250 Last Action: New Order on 02/13/191250 by RAMBO BRAR Docusate Sodium (Docusate Sodium) 100 Mg Capsule, 100 MG PO BID PRN for CONSTIPATION, (Reported) Entered as Reported by: RAMBO BRAR on 02/13/191250 Last Action: New Order on 02/13/191250 by RAMBO BRAR Indomethacin (Indomethacin) 50 Mg Capsule, 50 MG PO TID PRN for gout, (Reported) Entered as Reported by: RAMBO BRAR on 02/13/191250 Last Action: New Order on 02/13/191250 by RAMBO BRAR Meloxicam (Meloxicam) 15 Mg Tablet, 15 MG PO DAILY PRN for PAIN, (Reported) Entered as Reported by: RAMBO BRAR on 02/13/191250 Last Action: New Order on 02/13/191250 by RAMBO BRAR Tadalafil (Cialis) 5 Mg Tablet, 5 MG PO DAILY PRN for prior to sexual activity, (Reported) Entered as Reported by: RAMBO BRAR on 02/13/191250 Last Action: New Order on 02/13/191250 by RAMBO BRAR Discontinued Medications Hydrocodone Bit/Acetaminophen (Hydrocodone-Apap 7.5-325 ) 1 Each Tablet, 1-2 TAB PO Q8HRS PRN for PAIN, #100 (Reported) Not given on this admission Take as needed at home Entered as Reported by: JORGE ANN RN on 11/12/151635 Last Action: Discontinued on 02/12/192044 by Jb Bryant Insulin Lispro (Humalog) 100 Unit/1 Ml Insuln.pen, 7 UNITS SQ TIDWMEALS, #15 (Reported) Gave 7 units with lunch today Take this evening with dinner Entered as Reported by: JORGE ANN RN on 11/12/151635 Last Action: Discontinued on 02/12/192044 by Jb Bryant Nph, Human Insulin Isophane (Humulin N Kwikpen) 100 Unit/1 Ml Insuln.pen, 15-20 UNITS SQ BID, #15 (Reported) Gave 15 units this morning Take 15 units this evening at bedtime Entered as Reported by: JORGE ANN RN on 11/12/151635 Last Action: Discontinued on 02/12/192044 by Jb Bryant Olmesartan/Hydrochlorothiazide (Benicar Hct 40-25 Mg Tablet) 1 Each Tablet, 1 TAB PO DAILY, #30 (Reported) Gave this am Take tomorrow morning Entered as Reported by: JORGE ANN RN on 11/12/151635 Last Action: Discontinued on 02/12/192044 by Jb Bryant Olmesartan/Hydrochlorothiazide (Benicar Hct 40-25 Mg Tablet) 1 Each Tablet, 1 EACH PO DAILY for HTN, (Reported) Entered as Reported by: RAMBO BRAR on 02/13/19 1251 Last Action: Discontinued on 02/13/191257 by RAMBO BRAR Simvastatin (Simvastatin) 20 Mg Tablet, 1 TAB PO DAILY, #30 (Reported) Take tonight before bed Entered as Reported by: JORGE ANN RN on 11/12/15 1636 Last Action: Discontinued on 02/13/191253 by ARELY BRYAN MD Feb 14, 2019 09:45
[2019-02-14 10:39] VITALS: BP 128/69
--- NOTE | 2019-02-14 12:54 | NUR ---
SS following up with discharge planning. Pt and spouse reported having no preference of home healthcare company and reported being agreeable to home healthcare with [facility], ; fax [phone]. SS phoned and faxed discharge orders and referral to [facility]. Pt's RN notified.
[2019-02-14] MEDS: IV NORMAL SALINE 1000ML BAG 1,000 ML IV SCH (13:00)
[2019-02-14 14:43] VITALS: BP 137/68
--- NOTE | 2019-02-14 14:48 | PDOC ---
PULMONARY PROGRESS NOTES Vitals Vital Signs Date Time Temp Pulse Resp B/P (MAP) Pulse Ox O2 Delivery O2 Flow Rate FiO2 02/14/19 10:39 97.5 63 18 128/69 (88) 95 Room Air 97.5 02/13/19 15:00 2.0 Lungs: Clear Labs Laboratory Tests Test 02/12/19 15:29 02/12/19 15:45 02/12/19 16:20 02/12/19 20:33 Glucose (Fingerstick) 202 mg/dL (70-99) 101 mg/dL (70-99) White Blood Count 6.8 x10^3/uL (4.0-11.0) Red Blood Count 4.54 x10^6/uL (4.30-5.70) Hemoglobin 13.5 g/dL (13.0-17.5) Hematocrit 41.6 % (39.0-53.0) Mean Corpuscular Volume 92 fL (79-100) Mean Corpuscular Hemoglobin 30 pg (25-35) Mean Corpuscular Hemoglobin Concent 33 g/dL (31-37) Red Cell Distribution Width 14.7 % (11.5-14.5) Platelet Count 207 x10^3/uL (140-400) Neutrophils (%) (Auto) 71 % (31-73) Lymphocytes (%) (Auto) 21 % (24-48) Monocytes (%) (Auto) 7 % (0-9) Eosinophils (%) (Auto) 0 % (0-3) Basophils (%) (Auto) 1 % (0-3) Neutrophils # (Auto) 4.8 x10^3uL (1.8-7.7) Lymphocytes # (Auto) 1.5 x10^3/uL (1.0-4.8) Monocytes # (Auto) 0.5 x10^3/uL (0.0-1.1) Eosinophils # (Auto) 0.0 x10^3/uL (0.0-0.7) Basophils # (Auto) 0.0 x10^3/uL (0.0-0.2) Prothrombin Time 14.4 SEC (11.7-14.0) Prothromb Time International Ratio 1.2 (0.8-1.1) Activated Partial Thromboplast Time 40 SEC (24-38) Sodium Level 140 mmol/L (136-145) Potassium Level 3.5 mmol/L (3.5-5.1) Chloride Level 104 mmol/L (98-107) Carbon Dioxide Level 29 mmol/L (21-32) Anion Gap 7 (6-14) Blood Urea Nitrogen 14 mg/dL (8-26) Creatinine 1.6 mg/dL (0.7-1.3) Estimated GFR (Cockcroft-Gault) 50.6 BUN/Creatinine Ratio 9 (6-20) Glucose Level 101 mg/dL (70-99) Lactic Acid Level 1.7 mmol/L (0.4-2.0) Calcium Level 9.2 mg/dL (8.5-10.1) Total Bilirubin 0.6 mg/dL (0.2-1.0) Aspartate Amino Transf (AST/SGOT) 24 U/L (15-37) Alanine Aminotransferase (ALT/SGPT) 14 U/L (16-63) Alkaline Phosphatase 41 U/L (46-116) Creatine Kinase 718 U/L (39-308) Creatine Kinase MB (Mass) 0.7 ng/mL (0.0-3.6) Creatine Kinase MB Relative Index 0.1 % (0-4) Troponin I Quantitative < 0.017 ng/mL (0.000-0.055) HC-Kqp-S-Type Natriuretic Peptide 276 pg/mL (0-449) Total Protein 8.2 g/dL (6.4-8.2) Albumin 3.7 g/dL (3.4-5.0) Albumin/Globulin Ratio 0.8 (1.0-1.7) Vitamin B12 Level 260 pg/mL (247-911) Thyroid Stimulating Hormone (TSH) 1.124 uIU/mL (0.358-3.74) Influenza Type A Antigen Negative (NEGATIVE) Influenza Type B Antigen Negative (NEGATIVE) Test 02/12/19 22:10 02/13/19 04:39 02/13/19 04:50 02/13/19 07:30 Troponin I Quantitative 0.030 ng/mL (0.000-0.055) 0.030 ng/mL (0.000-0.055) Urine Collection Type Unknown Urine Color Yellow Urine Clarity Clear Urine pH 5.5 Urine Specific [place] 1.015 Urine Protein Negative mg/dL (NEG-TRACE) Urine Glucose (UA) Negative mg/dL (NEG) Urine Ketones (Stick) Negative mg/dL (NEG) Urine Blood Trace (NEG) Urine Nitrite Negative (NEG) Urine Bilirubin Negative (NEG) Urine Urobilinogen Dipstick 1.0 mg/dL (0.2 mg/dL) Urine Leukocyte Esterase Small (NEG) Urine RBC Occ /HPF (0-2) Urine WBC 5-10 /HPF (0-4) Urine Squamous Epithelial Cells Few /LPF Urine Bacteria 0 /HPF (0-FEW) Urine Hyaline Casts Few /HPF Urine Mucus Mod /LPF Sodium Level 143 mmol/L (136-145) Potassium Level 3.4 mmol/L (3.5-5.1) Chloride Level 108 mmol/L (98-107) Carbon Dioxide Level 25 mmol/L (21-32) Anion Gap 10 (6-14) Blood Urea Nitrogen 11 mg/dL (8-26) Creatinine 1.1 mg/dL (0.7-1.3) Estimated GFR (Cockcroft-Gault) 77.9 Glucose Level 93 mg/dL (70-99) Calcium Level 8.3 mg/dL (8.5-10.1) Triglycerides Level 60 mg/dL (0-150) Cholesterol Level 96 mg/dL (0-200) LDL Cholesterol, Calculated 52 mg/dL (0-100) VLDL Cholesterol, Calculated 12 mg/dL (0-40) Non-HDL Cholesterol Calculated 64 mg/dL (0-129) HDL Cholesterol 32 mg/dL (40-60) Cholesterol/HDL Ratio 3.0 Procalcitonin 0.10 ng/mL (0.00-0.10) Glucose (Fingerstick) 107 mg/dL (70-99) Test 02/13/19 11:25 02/13/19 16:52 02/13/19 20:45 02/14/19 07:22 Glucose (Fingerstick) 129 mg/dL (70-99) 100 mg/dL (70-99) 94 mg/dL (70-99) 94 mg/dL (70-99) Test 02/14/19 11:36 Glucose (Fingerstick) 101 mg/dL (70-99) Laboratory Tests Test 02/13/19 16:52 02/13/19 20:45 02/14/19 07:22 02/14/19 11:36 Glucose (Fingerstick) 100 mg/dL (70-99) 94 mg/dL (70-99) 94 mg/dL (70-99) 101 mg/dL (70-99) Medications Active Scripts Medications Dose Route/Sig Max Daily Dose Days Date Category Dose Instructions Azithromycin Tablet (Azithromycin) 250 Mg Tablet 250 Mg PO Q24H MDD 1 02/14/19 Rx Guaifenesin Dm Syrup (Guaifenesin/Dextromethorphan) 5 Ml Syrup 10 Ml PO QID MDD 1 02/14/19 Rx Hydrochlorothiazide Tablet (Hydrochlorothiazide) 25 Mg Tablet 25 Mg PO DAILY MDD 1 02/14/19 Rx Benicar Hct 40-25 Mg Tablet (Olmesartan/Hydrochlorothiazide) 1 Each Tablet 1 Each PO DAILY 02/13/19 Reported Colcrys (Colchicine) 0.6 Mg Tablet 0.6 Mg PO DAILY 02/13/19 Reported Vitamin D2 (Ergocalciferol (Vitamin D2)) 50,000 Unit Capsule 50,000 Unit PO WEEKLY 02/13/19 Reported Cialis (Tadalafil) 5 Mg Tablet 5 Mg PO DAILY PRN 02/13/19 Reported Meloxicam 15 Mg Tablet 15 Mg PO DAILY PRN 02/13/19 Reported Cyclobenzaprine Hcl 10 Mg Tablet 10 Mg PO TID PRN 02/13/19 Reported Cyclobenzaprine Hcl 10 Mg Tablet 10 Mg PO TID PRN 02/13/19 Reported Docusate Sodium 100 Mg Capsule 100 Mg PO BID PRN 02/13/19 Reported Atorvastatin Calcium 20 Mg Tablet 20 Mg PO HS 02/13/19 Reported Cetirizine Hcl 10 Mg Tablet 10 Mg PO DAILY 02/13/19 Reported Indomethacin 50 Mg Capsule 50 Mg PO TID PRN 02/13/19 Reported Linzess (Linaclotide) 145 Mcg Capsule 145 Mcg PO DAILY07 02/13/19 Reported Latanoprost 2.5 Ml Drops 1 Drop EACHEYE QHS 02/12/19 Reported Alphagan P (Brimonidine Tartrate) 5 Ml Drops 1 Drop LEFTEYE BID 02/12/19 Reported Prednisolone Acetate 5 Ml Drops.susp 1 Drop EACHEYE TID 02/12/19 Reported Metformin Hcl 500 Mg Tablet 500 Mg PO TIDBFRMEAL 02/12/19 Reported Aspirin 81 Mg Tab.chew 1 Tab PO DAILY 02/12/19 Reported Tamsulosin Hcl 0.4 Mg Cap.er.24h 0.4 Mg PO DAILY 11/12/15 Reported Gave this morning Take tomorrow morning Impression . DICTATED AECOPD PAVAN PRINCE MD Feb 14, 2019 14:48
--- NOTE | 2019-02-14 15:38 | RAD ---
PA and lateral chest x-ray compared to similar study dated February 12, 2019 for wheezing and cough. FINDINGS: There are prominent bilateral perihilar interstitial lung markings, which are more conspicuous than on the prior examination. No focal infiltrate is identified. These findings may reflect bronchiolitis, reactive airway disease, or other inflammatory interstitial process. Heart size within normal limits. No soft tissue or osseous abnormalities. Impression: 1. Increased conspicuity of perihilar interstitial lung markings bilaterally, likely due to viral or reactive airway disease. Less common etiologies for interstitial inflammation such as hypersensitivity should also be considered.. Electronically signed by: Dougie Zhou MD (02/14/2019 3:35 PM) [id number]
[2019-02-14] MEDS: cefTRIAXone IV Push 1 GM VIAL. IVP SCH (17:18)
[2019-02-14] MEDS ORDERED: AZITHROMYCIN 250 MG TABLET. PO SCH (18:00)
[2019-02-14 19:30] VITALS: BP 149/77
[2019-02-14] MEDS: ATORVASTATIN CALCIUM 20 MG TABLET PO SCH (21:16)
[2019-02-14] MEDS: LATANOPROST 0.005% OPHTH SOLUTION 2.5ML BOTTLE. OU SCH (21:17)
[2019-02-14 23:25] VITALS: BP 140/73
[2019-02-15] MEDS: IV NORMAL SALINE 1000ML BAG 1,000 ML IV SCH (02:54)
[2019-02-15 03:16] VITALS: BP 148/86
[2019-02-15 07:00] VITALS: BP 161/83
[2019-02-15] MEDS: INSULIN LISPRO 300 UNITS/3 ML INSULN.PEN. SQ SCH ×2 (08:00→11:13)
--- NOTE | 2019-02-15 08:17 | CONS ---
DATE OF CONSULTATION: 02/14/2019 ATTENDING PHYSICIAN: Yvonne Goldman DO. REASON FOR CONSULTATION: The patient is seen in pulmonary consultation at the request of Dr. Goldman for his history of COPD. HISTORY OF PRESENT ILLNESS: The patient is an 78-year-old gentleman with a previous history of TIA, left-sided weakness, diabetes, presented with increasing fever at home. He was slightly confused. The patient is currently awake, alert, following commands. He reports cough, mostly nonproductive. He currently continues to smoke. I was asked to see him in consultation for COPD. He denies any productive cough, no hemoptysis. He has been seen by Infectious Disease physician. He is currently on Rocephin and Zithromax. PAST MEDICAL HISTORY: Diabetes, hyperlipidemia, COPD, hypertension, right eye blindness, BPH, history of TIA. PAST SURGICAL HISTORY: Status post cataract surgery. REVIEW OF SYSTEMS: As indicated in the history of present illness, otherwise they were negative. ALLERGIES: No known drug allergies. SOCIAL HISTORY: He smokes. CURRENT MEDICATIONS: List was reviewed. PHYSICAL EXAMINATION: GENERAL: The patient was in no respiratory distress. VITAL SIGNS: Stable. O2 saturation was greater than 92%. HEENT: Eyes, the sclerae were nonicteric. NECK: Jugular venous distention was not elevated. No lymphadenopathy. CHEST: Full expansion. LUNGS: Adequate airway flow, no wheezes. CARDIOVASCULAR: Regular rate and rhythm with S1, S2, no S3. ABDOMEN: Soft, nontender. EXTREMITIES: No clubbing, cyanosis or edema. LABORATORY DATA: Chest x-ray was reviewed and normal. Serology for influenza was negative. UA was noted. White count was not elevated. Hemoglobin and hematocrit were noted. IMPRESSION: 1. Acute exacerbation of chronic obstructive pulmonary disease. 2. Tobacco dependent. 3. Encephalopathy, suspect metabolic versus toxic. 4. Transient ischemic attack. 5. Acute kidney injury. 6. Diabetes. PLAN: 1. Concur with current medical management. 2. The patient instructed on the importance of discontinuing tobacco use. 3. We will follow along. I do appreciate the privilege in sharing in the patient's care. PAVAN PRINCE MD DR: FLY/mara JOB#: [id number] / [id number]
[2019-02-15] MEDS ORDERED: ALBU2.5V8 INH (08:21)
[2019-02-15] MEDS: BRIMONIDINE 0.2% OPHTH SOLUTION 5ML BOTTLE. OS SCH (08:35)
[2019-02-15] MEDS: hydroCHLOROthiazide 25 MG TABLET PO SCH (08:36)
[2019-02-15] MEDS: metFORMIN 500 MG TABLET PO SCH ×2 (08:37→12:49)
[2019-02-15] MEDS: ASPIRIN CHEWABLE 81 MG TABLET. PO SCH (08:37)
[2019-02-15] MEDS: TAMSULOSIN 0.4 MG CAP.ER.24H. PO SCH (08:37)
[2019-02-15] MEDS: DEXAMETHASONE 0.1% OPHTH SOLUTION 5ML BOTTLE. OU SCH (08:37)
[2019-02-15] MEDS: LACTOBACILLUS RHAMNOSUS GG 1 CAPSULE. PO SCH (08:37)
[2019-02-15] MEDS: guaiFENesin DM 200MG/20MG 10 ML SYRUP PO SCH (08:37)
[2019-02-15] MEDS: LOSARTAN POTASSIUM 50 MG TABLET. PO SCH (08:37)
[2019-02-15] MEDS ORDERED: BUDE180A IH (09:27)
--- NOTE | 2019-02-15 09:30 | PDOC3 ---
Discharge Summary Visit Information Date of Admission: Feb 12, 2019 Date of Discharge: Feb 15, 2019 Admitting Diagnosis Comment: Encephalopathy in the background of fevers resolved AK I resolved TIA versus reversible ischemic syndrome, neg CVA in MRI Mild hypokalemia Flu negative AE COPD COPD new diagnosis Smoker less than a pack-a-day Final Diagnosis Problems Medical Problems: (1) Confusion Status: Acute (2) Fever Status: Acute (3) Upper respiratory infection Status: Acute Brief Hospital Course Allergies Allergies Coded Allergies Type Severity Reaction Last Updated Verified No Known Drug Allergies 12/15/16 No Vital Signs Vital Signs Date Time Temp Pulse Resp B/P (MAP) Pulse Ox O2 Delivery O2 Flow Rate FiO2 02/15/19 08:37 62 161/83 02/15/19 08:05 Room Air 02/15/19 07:00 97.9 18 93 97.9 Lab Results Laboratory Tests Test 02/13/19 11:25 02/13/19 16:52 02/13/19 20:45 02/14/19 07:22 Glucose (Fingerstick) 129 mg/dL (70-99) 100 mg/dL (70-99) 94 mg/dL (70-99) 94 mg/dL (70-99) Test 02/14/19 11:36 02/14/19 16:40 02/14/19 20:48 02/15/19 07:32 Glucose (Fingerstick) 101 mg/dL (70-99) 91 mg/dL (70-99) 108 mg/dL (70-99) 95 mg/dL (70-99) Laboratory Tests Test 02/14/19 11:36 02/14/19 16:40 02/14/19 20:48 02/15/19 07:32 Glucose (Fingerstick) 101 mg/dL (70-99) 91 mg/dL (70-99) 108 mg/dL (70-99) 95 mg/dL (70-99) Brief Hospital Course Mr. Norton is a 78 old [place] male who smokes less than a pack-a-day, came in because of AK I and encephalopathy both resolved within 24 hours. Neuro workup including MRI brain is negative. Course remarkable for chronic cough causing some mSK skeletal pains. Flu negative. ID has recommended pulmonary consult. Pulmonary assessed pt to have possibly undiagnosed COPD. I have given scripts for Pulmicort, Pro Air, guaifenesin, azithromycin and all other COPD URI Rx. No PT needs Worked well with physical therapy with no SOA Counseled on smoking cessation one-to-one less than 30 minutes Discussed with DC time 31 minutes Discussed with RN at bedside Consults performed pulmonary/ID Procedures performed chest x-ray 2 views and blood tests dispO: home with Discharge Information Condition at Discharge: Improved, Stable Follow Up: Weeks (pcp 4 weeks for new copd dx, OP PFts) Disposition/Orders: D/C to Home Scheduled Aspirin (Aspirin) 81 Mg Tab.chew, 1 TAB PO DAILY for , #30 Ref 3 (Reported) Entered as Reported by: Jb Bryant on 02/12/192044 Last Action: Continued on 02/12/192045 by Jb Bryant Atorvastatin Calcium (Atorvastatin Calcium) 20 Mg Tablet, 20 MG PO HS for FOR CHOLESTEROL, #30 Ref 0 (Reported) Entered as Reported by: RAMBO BRAR on 02/13/191250 Last Action: Continued on 02/13/191257 by RAMBO BRAR Azithromycin (Azithromycin Tablet) 250 Mg Tablet, 250 MG PO Q24H for uri MDD 1, #4 Prescribed by: ARELY ALAMO on 02/14/19 0812 Brimonidine Tartrate (Alphagan P) 5 Ml Drops, 1 DROP LEFTEYE BID for , #15 Ref 3 (Reported) Entered as Reported by: Jb Bryant on 02/12/192044 Last Action: Converted on 02/12/192045 by Jb Bryant Cetirizine Hcl (Cetirizine Hcl) 10 Mg Tablet, 10 MG PO DAILY for allergies, (Reported) Entered as Reported by: RAMBO BRAR on 02/13/191250 Last Action: New Order on 02/13/191250 by RAMBO BRAR Colchicine (Colcrys) 0.6 Mg Tablet, 0.6 MG PO DAILY for gout, (Reported) Entered as Reported by: RAMBO BRAR on 02/13/191250 Last Action: New Order on 02/13/191250 by RAMBO BRAR Ergocalciferol (Vitamin D2) (Vitamin D2) 50,000 Unit Capsule, 50,000 UNIT PO WEEKLY for supplement, (Reported) Entered as Reported by: RAMBO BRAR on 02/13/191250 Last Action: New Order on 02/13/191250 by RAMBO BRAR Guaifenesin/Dextromethorphan (Guaifenesin Dm Syrup) 5 Ml Syrup, 10 ML PO QID for cough MDD 1, #20 Prescribed by: ARELY ALAMO on 02/14/19811 Hydrochlorothiazide (Hydrochlorothiazide Tablet ) 25 Mg Tablet, 25 MG PO DAILY for htn MDD 1, #60 Prescribed by: ARELY ALAMO on 02/14/1912 Latanoprost (Latanoprost) 2.5 Ml Drops, 1 DROP EACHEYE QHS for , #7.5 Ref 3 (Reported) Entered as Reported by: Jb Bryant on 02/12/192044 Last Action: Converted on 02/12/192045 by Jb Bryant Linaclotide (Linzess) 145 Mcg Capsule, 145 MCG PO DAILY07 for IRRITABLE BOWEL, (Reported) Entered as Reported by: RAMBO BRAR on 02/13/191250 Last Action: New Order on 02/13/191250 by RAMBO BRAR Metformin Hcl (Metformin Hcl) 500 Mg Tablet, 500 MG PO TIDBFRMEAL for ANTI- DIABETIC, Ref 0 (Reported) Entered as Reported by: Jb Bryant on 02/12/192044 Last Action: Converted on 02/12/192045 by Jb Bryant Olmesartan/Hydrochlorothiazide (Benicar Hct 40-25 Mg Tablet) 1 Each Tablet, 1 EACH PO DAILY for HTN, (Reported) Entered as Reported by: RAMBO BRAR on 02/13/191250 Last Action: Converted on 02/13/191257 by RAMBO BRAR Prednisolone Acetate (Prednisolone Acetate) 5 Ml Drops.susp, 1 DROP EACHEYE TID for , #5 (Reported) Entered as Reported by: Jb Bryant on 02/12/192044 Last Action: Converted on 02/12/192045 by Jb Bryant Tamsulosin Hcl (Tamsulosin Hcl) 0.4 Mg Cap.er.24h, 0.4 MG PO DAILY, #30 (Reported) Gave this morning Take tomorrow morning Entered as Reported by: JORGE ANN RN on 11/12/15 1636 Last Action: Continued on 02/12/192045 by Jb Bryant Scheduled PRN Albuterol Sulfate (Proair Hfa Inhaler) 8.5 Gm Hfa.aer.ad, 1 PUFF INH PRN Q6HRS PRN for SHORTNESS OF BREATH for 14 Days, Ref 0 Prescribed by: ARELY ALAMO on 02/15/19 0821 Cyclobenzaprine Hcl (Cyclobenzaprine Hcl) 10 Mg Tablet, 10 MG PO TID PRN for MUSCLE SPASTICITY, (Reported) Entered as Reported by: RAMBO BRAR on 02/13/191250 Last Action: New Order on 02/13/191250 by RAMBO BRAR Cyclobenzaprine Hcl (Cyclobenzaprine Hcl) 10 Mg Tablet, 10 MG PO TID PRN for muscle spasm, (Reported) Entered as Reported by: RAMBO BRAR on 02/13/191250 Last Action: New Order on 02/13/191250 by RAMBO BRAR Docusate Sodium (Docusate Sodium) 100 Mg Capsule, 100 MG PO BID PRN for CONSTIPATION, (Reported) Entered as Reported by: RAMBO BRAR on 02/13/191250 Last Action: New Order on 02/13/191250 by RAMBO BRAR Indomethacin (Indomethacin) 50 Mg Capsule, 50 MG PO TID PRN for gout, (Reported) Entered as Reported by: RAMBO BRAR on 02/13/191250 Last Action: New Order on 02/13/191250 by RAMBO BRAR Meloxicam (Meloxicam) 15 Mg Tablet, 15 MG PO DAILY PRN for PAIN, (Reported) Entered as Reported by: RAMBO BRAR on 02/13/191250 Last Action: New Order on 02/13/191250 by RAMBO BRAR Tadalafil (Cialis) 5 Mg Tablet, 5 MG PO DAILY PRN for prior to sexual activity, (Reported) Entered as Reported by: RAMBO BRAR on 02/13/191250 Last Action: New Order on 02/13/191250 by RAMBO BRAR Discontinued Medications Hydrocodone Bit/Acetaminophen (Hydrocodone-Apap 7.5-325 ) 1 Each Tablet, 1-2 TAB PO Q8HRS PRN for PAIN, #100 (Reported) Not given on this admission Take as needed at home Entered as Reported by: JORGE ANN RN on 11/12/151635 Last Action: Discontinued on 02/12/192044 by Jb Bryant Insulin Lispro (Humalog) 100 Unit/1 Ml Insuln.pen, 7 UNITS SQ TIDWMEALS, #15 (Reported) Gave 7 units with lunch today Take this evening with dinner Entered as Reported by: JORGE ANN RN on 11/12/151635 Last Action: Discontinued on 02/12/192044 by Jb Bryant Nph, Human Insulin Isophane (Humulin N Kwikpen) 100 Unit/1 Ml Insuln.pen, 15-20 UNITS SQ BID, #15 (Reported) Gave 15 units this morning Take 15 units this evening at bedtime Entered as Reported by: JORGE ANN RN on 11/12/151635 Last Action: Discontinued on 02/12/192044 by Jb Bryant Olmesartan/Hydrochlorothiazide (Benicar Hct 40-25 Mg Tablet) 1 Each Tablet, 1 TAB PO DAILY, #30 (Reported) Gave this am Take tomorrow morning Entered as Reported by: JORGE ANN RN on 11/12/151635 Last Action: Discontinued on 02/12/192044 by Jb Bryant Olmesartan/Hydrochlorothiazide (Benicar Hct 40-25 Mg Tablet) 1 Each Tablet, 1 EACH PO DAILY for HTN, (Reported) Entered as Reported by: RAMBO BRAR on 02/13/19 1251 Last Action: Discontinued on 02/13/19 1258 by RAMBO BRAR Simvastatin (Simvastatin) 20 Mg Tablet, 1 TAB PO DAILY, #30 (Reported) Take tonight before bed Entered as Reported by: JORGE ANN RN on 11/12/151635 Last Action: Discontinued on 02/13/19 125 by ARELY BRYAN MD Feb 15, 2019 09:30
--- NOTE | 2019-02-15 10:19 | PDOC ---
PULMONARY PROGRESS NOTES Vitals Vital Signs Date Time Temp Pulse Resp B/P (MAP) Pulse Ox O2 Delivery O2 Flow Rate FiO2 02/15/19 08:37 62 161/83 02/15/19 08:05 Room Air 02/15/19 07:00 97.9 18 93 97.9 Lungs: Clear Labs Laboratory Tests Test 02/13/19 11:25 02/13/19 16:52 02/13/19 20:45 02/14/19 07:22 Glucose (Fingerstick) 129 mg/dL (70-99) 100 mg/dL (70-99) 94 mg/dL (70-99) 94 mg/dL (70-99) Test 02/14/19 11:36 02/14/19 16:40 02/14/19 20:48 02/15/19 07:32 Glucose (Fingerstick) 101 mg/dL (70-99) 91 mg/dL (70-99) 108 mg/dL (70-99) 95 mg/dL (70-99) Laboratory Tests Test 02/14/19 11:36 02/14/19 16:40 02/14/19 20:48 02/15/19 07:32 Glucose (Fingerstick) 101 mg/dL (70-99) 91 mg/dL (70-99) 108 mg/dL (70-99) 95 mg/dL (70-99) Medications Active Scripts Medications Dose Route/Sig Max Daily Dose Days Date Category Dose Instructions Azithromycin Tablet (Azithromycin) 250 Mg Tablet 250 Mg PO Q24H MDD 1 02/14/19 Rx Guaifenesin Dm Syrup (Guaifenesin/Dextromethorphan) 5 Ml Syrup 10 Ml PO QID MDD 1 02/14/19 Rx Hydrochlorothiazide Tablet (Hydrochlorothiazide) 25 Mg Tablet 25 Mg PO DAILY MDD 1 02/14/19 Rx Benicar Hct 40-25 Mg Tablet (Olmesartan/Hydrochlorothiazide) 1 Each Tablet 1 Each PO DAILY 02/13/19 Reported Colcrys (Colchicine) 0.6 Mg Tablet 0.6 Mg PO DAILY 02/13/19 Reported Vitamin D2 (Ergocalciferol (Vitamin D2)) 50,000 Unit Capsule 50,000 Unit PO WEEKLY 02/13/19 Reported Cialis (Tadalafil) 5 Mg Tablet 5 Mg PO DAILY PRN 02/13/19 Reported Meloxicam 15 Mg Tablet 15 Mg PO DAILY PRN 02/13/19 Reported Cyclobenzaprine Hcl 10 Mg Tablet 10 Mg PO TID PRN 02/13/19 Reported Cyclobenzaprine Hcl 10 Mg Tablet 10 Mg PO TID PRN 02/13/19 Reported Docusate Sodium 100 Mg Capsule 100 Mg PO BID PRN 02/13/19 Reported Atorvastatin Calcium 20 Mg Tablet 20 Mg PO HS 02/13/19 Reported Cetirizine Hcl 10 Mg Tablet 10 Mg PO DAILY 02/13/19 Reported Indomethacin 50 Mg Capsule 50 Mg PO TID PRN 02/13/19 Reported Linzess (Linaclotide) 145 Mcg Capsule 145 Mcg PO DAILY07 02/13/19 Reported Latanoprost 2.5 Ml Drops 1 Drop EACHEYE QHS 02/12/19 Reported Alphagan P (Brimonidine Tartrate) 5 Ml Drops 1 Drop LEFTEYE BID 02/12/19 Reported Prednisolone Acetate 5 Ml Drops.susp 1 Drop EACHEYE TID 02/12/19 Reported Metformin Hcl 500 Mg Tablet 500 Mg PO TIDBFRMEAL 02/12/19 Reported Aspirin 81 Mg Tab.chew 1 Tab PO DAILY 02/12/19 Reported Tamsulosin Hcl 0.4 Mg Cap.er.24h 0.4 Mg PO DAILY 11/12/15 Reported Gave this morning Take tomorrow morning Impression . IMPRESSION: 1. Acute exacerbation of chronic obstructive pulmonary disease. 2. Tobacco dependent. 3. Encephalopathy, suspect metabolic versus toxic. 4. Transient ischemic attack. 5. Acute kidney injury. 6. Diabetes. 7. POSSIBLE PNEUMONIA Impression: 1. Increased conspicuity of perihilar interstitial lung markings bilaterally, likely due to viral or reactive airway disease. Less common etiologies for interstitial inflammation such as hypersensitivity should also be considered.. Plan . WILL ADD STEROIDS CULTURES NEG SO FAR 1. Concur with current medical management. 2. The patient instructed on the importance of discontinuing tobacco use. 3. We will follow along. PAVAN PRINCE MD Feb 15, 2019 10:19
[2019-02-15] MEDS ORDERED: methylPREDNISolone SOD SUCC PF 125 MG/2 ML VIAL. IV ONE (10:30)
[2019-02-15 11:00] VITALS: BP 146/78
--- NOTE | 2019-02-15 12:16 | PDOC ---
Infectious Disease Note Subjective Subjective Comfortable Cough much better Denies SOA/CP/F/C/S/N/V/D Appetite alright ROS ROS per HPI Vital Sign Vital Signs Vital Signs Date Time Temp Pulse Resp B/P (MAP) Pulse Ox O2 Delivery O2 Flow Rate FiO2 02/15/19 11:00 97.6 62 18 146/78 (100) 93 Room Air 97.6 Physical Exam PHYSICAL EXAM GENERAL: Sleeping, arouses to name HENT: Oral cavity clear NECK: Supple. LUNGS: Clear anteriorly, nonlabored HEART: S1, S2. ABDOMEN: Soft, nontender, nondistended with positive bowel sounds. EXTREMITIES: Without clubbing, cyanosis or gross edema. SKIN: Warm to touch without signs of rash. NEUROLOGIC: Responds appropriately, moves all extremities. Labs Lab Laboratory Tests Test 02/14/19 16:40 02/14/19 20:48 02/15/19 07:32 02/15/19 10:56 Glucose (Fingerstick) 91 mg/dL (70-99) 108 mg/dL (70-99) 95 mg/dL (70-99) 99 mg/dL (70-99) Micro URINE CULTURE RES 1 Final Comment Culture shows less than 10,000 colony forming units of bacteria per milliliter of urine. This colony count is not generally considered to be clinically significant. BLOOD CULTURE Preliminary NO GROWTH AFTER 1 DAY Objective Assessment Fever - resolved Cough - ? post viral Encephalopathy - ? TIA - has greatly improved THIERNO - improved DM Plan Plan of Care Cont Rocephin and Azithromycin Now on steroids Incentive spirometry BC NGTD Attending Co-Sign The patient was seen and interviewed as well as examined at the bedside. The chart was reviewed. The case was discussed. Agree with the plan of care. KAI PEGUERO APRN Feb 15, 2019 12:16 MINDA FLOWER MD Feb 15, 2019 14:07
--- NOTE | 2019-02-15 12:52 | PDOC ---
PULMONARY PROGRESS NOTES Subjective PT NOT SOA OK TO GO HOME Vitals Vital Signs Date Time Temp Pulse Resp B/P (MAP) Pulse Ox O2 Delivery O2 Flow Rate FiO2 02/15/19 11:00 97.6 62 18 146/78 (100) 93 Room Air 97.6 ROS: No Nausea, No Chest Pain, No Abdominal Pain, No Increase Cough General: Alert Lungs: Crackles Cardiovascular: S1, S2 Abdomen: Soft Neuro Exam: Alert Extremities: No Edema Skin: Warm Labs Laboratory Tests Test 02/13/19 16:52 02/13/19 20:45 02/14/19 07:22 02/14/19 11:36 Glucose (Fingerstick) 100 mg/dL (70-99) 94 mg/dL (70-99) 94 mg/dL (70-99) 101 mg/dL (70-99) Test 02/14/19 16:40 02/14/19 20:48 02/15/19 07:32 02/15/19 10:56 Glucose (Fingerstick) 91 mg/dL (70-99) 108 mg/dL (70-99) 95 mg/dL (70-99) 99 mg/dL (70-99) Laboratory Tests Test 02/14/19 16:40 02/14/19 20:48 02/15/19 07:32 02/15/19 10:56 Glucose (Fingerstick) 91 mg/dL (70-99) 108 mg/dL (70-99) 95 mg/dL (70-99) 99 mg/dL (70-99) Medications Active Scripts Medications Dose Route/Sig Max Daily Dose Days Date Category Dose Instructions Azithromycin Tablet (Azithromycin) 250 Mg Tablet 250 Mg PO Q24H MDD 1 02/14/19 Rx Guaifenesin Dm Syrup (Guaifenesin/Dextromethorphan) 5 Ml Syrup 10 Ml PO QID MDD 1 02/14/19 Rx Hydrochlorothiazide Tablet (Hydrochlorothiazide) 25 Mg Tablet 25 Mg PO DAILY MDD 1 02/14/19 Rx Benicar Hct 40-25 Mg Tablet (Olmesartan/Hydrochlorothiazide) 1 Each Tablet 1 Each PO DAILY 02/13/19 Reported Colcrys (Colchicine) 0.6 Mg Tablet 0.6 Mg PO DAILY 02/13/19 Reported Vitamin D2 (Ergocalciferol (Vitamin D2)) 50,000 Unit Capsule 50,000 Unit PO WEEKLY 02/13/19 Reported Cialis (Tadalafil) 5 Mg Tablet 5 Mg PO DAILY PRN 02/13/19 Reported Meloxicam 15 Mg Tablet 15 Mg PO DAILY PRN 02/13/19 Reported Cyclobenzaprine Hcl 10 Mg Tablet 10 Mg PO TID PRN 02/13/19 Reported Cyclobenzaprine Hcl 10 Mg Tablet 10 Mg PO TID PRN 02/13/19 Reported Docusate Sodium 100 Mg Capsule 100 Mg PO BID PRN 02/13/19 Reported Atorvastatin Calcium 20 Mg Tablet 20 Mg PO HS 02/13/19 Reported Cetirizine Hcl 10 Mg Tablet 10 Mg PO DAILY 02/13/19 Reported Indomethacin 50 Mg Capsule 50 Mg PO TID PRN 02/13/19 Reported Linzess (Linaclotide) 145 Mcg Capsule 145 Mcg PO DAILY07 02/13/19 Reported Latanoprost 2.5 Ml Drops 1 Drop EACHEYE QHS 02/12/19 Reported Alphagan P (Brimonidine Tartrate) 5 Ml Drops 1 Drop LEFTEYE BID 02/12/19 Reported Prednisolone Acetate 5 Ml Drops.susp 1 Drop EACHEYE TID 02/12/19 Reported Metformin Hcl 500 Mg Tablet 500 Mg PO TIDBFRMEAL 02/12/19 Reported Aspirin 81 Mg Tab.chew 1 Tab PO DAILY 02/12/19 Reported Tamsulosin Hcl 0.4 Mg Cap.er.24h 0.4 Mg PO DAILY 11/12/15 Reported Gave this morning Take tomorrow morning Impression . IMPRESSION: 1. Acute exacerbation of chronic obstructive pulmonary disease. 2. Tobacco dependent. 3. Encephalopathy, suspect metabolic versus toxic. 4. Transient ischemic attack. 5. Acute kidney injury. 6. Diabetes. 7. POSSIBLE PNEUMONIA Impression: 1. Increased conspicuity of perihilar interstitial lung markings bilaterally, likely due to viral or reactive airway disease. Less common etiologies for interstitial inflammation such as hypersensitivity should also be considered.. Plan . OK TO D/C FOLLOW UP IN MARCH WILL ADD STEROIDS CULTURES NEG SO FAR PAVAN PRINCE MD Feb 15, 2019 12:52
--- NOTE | 2019-02-15 15:54 | NUR ---
Discharge Note: SANDEEP SANCHEZ [facility] Discharge instructions and discharge home medications reviewed with Patient and Spouse and a copy given. All questions have been answered and understanding verbalized. Patient given contact information regarding home health agency The following instructions and handouts were given: confusion, fever, stroke education, TIA Discontinued lines and drains: Peripheral IV intact. Patient discharged to Home w/services with Spouse via Wheelchair
[2019-02-15] MEDS ORDERED: methylPREDNISolone SOD SUCC PF 125 MG/2 ML VIAL. IV SCH (21:00)
--- NOTE | 2019-02-16 13:35 | NUR ---
Prescription for pulmicort inhaler, colcrys, VD2 (on discharge medication list) called into pharmacy. Requested by [facility].
== END 2019-02-15 15:45 | disposition home health service (06) | DRG 871 ==
LOC: ER 15:10 → 2 SOUTH 18:01
PROVIDERS: ADMIT Internal Medicine; ATTEND Internal Medicine
DX: A41.9 Sepsis, unspecified organism (principal); G93.41 Metabolic encephalopathy; J18.9 Pneumonia, unspecified organism; G45.9 Transient cerebral ischemic attack, unspecified; N17.9 Acute kidney failure, unspecified; J44.1 Chronic obstructive pulmonary disease with (acute) exacerbation; I69.854 Hemiplegia and hemiparesis following other cerebrovascular disease affecting left non-dominant side; E78.00 Pure hypercholesterolemia, unspecified; I10 Essential (primary) hypertension; N40.0 Benign prostatic hyperplasia without lower urinary tract symptoms; J06.9 Acute upper respiratory infection, unspecified; E78.5 Hyperlipidemia, unspecified; F17.210 Nicotine dependence, cigarettes, uncomplicated; M19.90 Unspecified osteoarthritis, unspecified site; M10.9 Gout, unspecified; K57.90 Diverticulosis of intestine, part unspecified, without perforation or abscess without bleeding; H54.8 Legal blindness, as defined in USA; E87.6 Hypokalemia; Z98.42 Cataract extraction status, left eye; Z82.49 Family history of ischemic heart disease and other diseases of the circulatory system; Z89.429 Acquired absence of other toe(s), unspecified side; Z82.3 Family history of stroke; Z79.82 Long term (current) use of aspirin; E11.39 Type 2 diabetes mellitus with other diabetic ophthalmic complication
CPT/HCPCS: 36415; 70450; 70553; 71045; 71046; 80048; 80053; 80061; 81001; 82553; 82607; 82962; 83605; 83880; 84145; 84443; 84484; 85025; 85610; 85730; 87040; 87086; 87804; 93005; 93306; 94640; 96361; 96365; 96366; 96375; A9585; J0456; J0696; J1815; J2930; J7030; J7050; J7613; Q0144; 92610; 97535; 99285-25

== ENCOUNTER 2019-08-16 10:26 | Emergency (ER) | payer MEDICARE ==
[~2019-08-16] VITALS: Ht 175.3 cm; Wt 80.3 kg
[~2019-08-16 10:26] MED LIST changes: +ALBU2.5V8 INH; +ASPI-630 PO; +ATOR20TA58 PO; +AZIT250T6 PO; +BRIM5DRO3 LEFTEYE; +BUDE180A IH; +CETI10TA16 PO; +COLC0.6T34 PO; +DOCU100C28 PO; +ERGO500027 PO; +GUAI5SYR PO; +HYDR-2145 PO; +INDO50CA15 PO; +LATA2.5D3 EACHEYE; +LINZESS145 MCG PO; +MELO15TA23 PO; +METF500T16 PO; +PRED5DRO16 EACHEYE; +TADA5TAB PO
[2019-08-16 10:34] VITALS: BP 191/89
--- NOTE | 2019-08-16 10:45 | PHYS DOC ---
Past Medical History Past Medical History: Arthritis, Diabetes-Type II, High Cholesterol, Hype rtension, Prostatitis Additional Past Medical Histor: enlarged prostate Past Surgical History: Other Additional Past Surgical Histo: cataract Left Alcohol Use: None Drug Use: None Adult General Chief Complaint Chief Complaint: CONTISPATION HPI HPI 78-year-old male presents to the emergency room with complaints of constipation. Patient states this is been off and on for approximately 2 weeks. Denies any nausea, vomiting, diarrhea, abdominal pain, fever, chest pain or SOB. Nothing makes his symptoms worse, nothing since and better. He states he has been on medication called linzess and states he has had some improvement with constipation. Patient states he took his last one this am. All other ROS negative unless documented in HPI Review of Systems Review of Systems See Above Allergies Allergies Allergies Coded Allergies Type Severity Reaction Last Updated Verified No Known Drug Allergies 12/15/16 No Physical Exam Physical Exam See Above Constitutional: Well developed, well nourished, no acute distress, non-toxic appearance. [] HENT: Normocephalic, atraumatic, bilateral external ears normal, oropharynx moist, no oral exudates, nose normal. [] Eyes: PERRLA, EOMI, conjunctiva normal, no discharge. [] Cardiovascular:Heart rate regular rhythm, no murmur [] Lungs & Thorax: Bilateral breath sounds clear to auscultation [] Abdomen: Bowel sounds normal, soft, no tenderness, no masses, no pulsatile masses. [] Skin: Warm, dry, no erythema, no rash. [] Extremities: No tenderness, no edema. [] Neurologic: Alert and oriented X 3, no focal deficits noted. [] Psychologic: Affect normal, judgement normal, mood normal. [] Current Patient Data Vital Signs Vital Signs Date Time Temp Pulse Resp B/P (MAP) Pulse Ox O2 Delivery O2 Flow Rate FiO2 08/16/19 10:34 97.6 64 16 191/89 (123) 99 Room Air 97.6 EKG EKG [] Radiology/Procedures Radiology/Procedures [facility] [address] [place] [address] IMAGING REPORT Signed PATIENT: LAURA SANCHEZ ACCOUNT: [id number] : 1940 LOCATION: ER AGE: 78 SEX: M EXAM STATUS: REG ER ORD. PHYSICIAN: MARYANN LAGOS MD REASON: constipation PROCEDURE: KUB EXAM: Abdomen, single view. HISTORY: Constipation. COMPARISON: None. FINDINGS: A frontal view of the abdomen is obtained. There are not specific air-filled loops of bowel within the abdomen. There is no transition point to suggest ejection. There are degenerative changes involving the spine. There are vascular calcifications. IMPRESSION: Nonspecific bowel gas pattern, without evidence of obstruction. Electronically signed by: Claudia Moore MD (08/16/2019 10:48 AM) [facility] DICTATED and SIGNED BY: CLAUDIA MOORE MD DATE: 08/16/19 1048 [] Course & Med Decision Making Course & Med Decision Making Pertinent Labs and Imaging studies reviewed. (See chart for details) []78-year-old male presents to the emergency room with complaints of constipation. Patient states this is been off and on for approximately 2 weeks. Denies any nausea, vomiting, diarrhea, abdominal pain, fever, chest pain or SOB. Nothing makes his symptoms worse, nothing since and better. He states he has been on medication called linzess. Patient states he took his last one this am. Xray without obstruction Patient with good BM in department States Linzess does help his constipation. Dragon Disclaimer Dragon Disclaimer This electronic medical record was generated, in whole or in part, using a voice recognition dictation system. Departure Departure Impression: Primary Impression: Constipation Disposition: 01 HOME, SELF-CARE Condition: STABLE Referrals: SHANICE KAY (PCP) Patient Instructions: Constipation, Adult Additional Instructions: Recommend follow up with PCP 3 - 5 days Return to the ER with worsening symptoms, intractable pain, fever, altered mental status Tylenol/Motrin as needed for pain Take medications as directed Scripts Linaclotide (LINZESS) 145 Mcg Capsule 145 MCG PO DAILY07 for IRRITABLE BOWEL for 30 Days, #30 CAP Prov: MARYANN LAGOS MD 08/16/19 Problem Qualifiers Primary Impression: Constipation Constipation type: unspecified constipation type Qualified Codes: K59.00 - Constipation, unspecified MARYANN LAGOS MD Aug 16, 2019 10:45
--- NOTE | 2019-08-16 10:51 | RAD ---
EXAM: Abdomen, single view. HISTORY: Constipation. COMPARISON: None. FINDINGS: A frontal view of the abdomen is obtained. There are not specific air-filled loops of bowel within the abdomen. There is no transition point to suggest ejection. There are degenerative changes involving the spine. There are vascular calcifications. IMPRESSION: Nonspecific bowel gas pattern, without evidence of obstruction. Electronically signed by: Claudia Parson MD (08/16/2019 10:48 AM) [facility]
[2019-08-16] MEDS ORDERED: LINZESS145 MCG PO (10:55)
== END 2019-08-16 11:04 | disposition home or self-care (01) ==
LOC: ER 10:26
DX: K59.00 Constipation, unspecified (principal); E11.9 Type 2 diabetes mellitus without complications; E78.00 Pure hypercholesterolemia, unspecified; I10 Essential (primary) hypertension; N40.0 Benign prostatic hyperplasia without lower urinary tract symptoms
CPT/HCPCS: 74018; 99283

== ENCOUNTER 2019-10-24 11:11 | Emergency (ER) | payer MEDICARE ==
[~2019-10-24] VITALS: Ht 175.3 cm; Wt 84.8 kg
[~2019-10-24 11:11] MED LIST changes: +SIMV20TA18 PO; -SIMV20TA3 PO
--- NOTE | 2019-10-24 12:52 | PHYS DOC ---
Past Medical History Past Medical History: Arthritis, Diabetes-Type II, High Cholesterol, Hype rtension, Prostatitis Additional Past Medical Histor: enlarged prostate, PTS BP MEDS WERE DC'D Past Surgical History: No Surgical History, Other Additional Past Surgical Histo: cataract Left Alcohol Use: None Drug Use: None Adult General Chief Complaint Chief Complaint: LOWER BACK PAIN OR INJURY HPI HPI Patient is a 78 year old [f__sex] who presents with [] Review of Systems Review of Systems Constitutional: Denies fever or chills [] Eyes: Denies change in visual acuity, redness, or eye pain [] HENT: Denies nasal congestion or sore throat [] Respiratory: Denies cough or shortness of breath [] Cardiovascular: No additional information not addressed in HPI [] GI: Denies abdominal pain, nausea, vomiting, bloody stools or diarrhea [] : Denies dysuria or hematuria [] Musculoskeletal: Denies back pain or joint pain [] Integument: Denies rash or skin lesions [] Neurologic: Denies headache, focal weakness or sensory changes [] Endocrine: Denies polyuria or polydipsia [] All other systems were reviewed and found to be within normal limits, except as documented in this note. Current Medications Current Medications Current Medications Medications (Trade) Dose Ordered Sig/Scotty Start Time Stop Time Status Last Admin Dose Admin Ketorolac Tromethamine (Toradol Im) 30 mg 1X ONCE 10/24/19 13:00 10/24/19 13:01 DC 10/24/19 13:02 30 MG Orphenadrine Citrate (Norflex) 100 mg 1X ONCE 10/24/19 13:00 10/24/19 13:01 DC 10/24/19 13:01 100 MG Allergies Allergies Allergies Coded Allergies Type Severity Reaction Last Updated Verified No Known Drug Allergies 12/15/16 No Physical Exam Physical Exam Constitutional: Well developed, well nourished, no acute distress, non-toxic appearance. [] HENT: Normocephalic, atraumatic, bilateral external ears normal, oropharynx moist, no oral exudates, nose normal. [] Eyes: PERRLA, EOMI, conjunctiva normal, no discharge. [] Neck: Normal range of motion, no tenderness, supple, no stridor. [] Cardiovascular:Heart rate regular rhythm, no murmur [] Lungs & Thorax: Bilateral breath sounds clear to auscultation [] Abdomen: Bowel sounds normal, soft, no tenderness, no masses, no pulsatile masses. [] Skin: Warm, dry, no erythema, no rash. [] Back: No tenderness, no CVA tenderness. [] Extremities: No tenderness, no cyanosis, no clubbing, ROM intact, no edema. [] Neurologic: Alert and oriented X 3, normal motor function, normal sensory function, no focal deficits noted. [] Psychologic: Affect normal, judgement normal, mood normal. [] Current Patient Data Vital Signs Vital Signs Date Time Temp Pulse Resp B/P (MAP) Pulse Ox O2 Delivery O2 Flow Rate FiO2 10/24/19 12:34 97.7 67 16 192/96 (128) 99 Room Air 97.7 EKG EKG [] Radiology/Procedures Radiology/Procedures [] Course & Med Decision Making Course & Med Decision Making Pertinent Labs and Imaging studies reviewed. (See chart for details) [] Dragon Disclaimer Dragon Disclaimer This electronic medical record was generated, in whole or in part, using a voice recognition dictation system. Departure Departure Impression: Primary Impression: Back pain Disposition: HOME, SELF-CARE Condition: STABLE Referrals: SHANICE KAY (PCP) CECILY LOW MD Patient Instructions: Back Pain, Adult, [id number] Scripts Orphenadrine Citrate (ORPHENADRINE CITRATE) 100 Mg Tablet.er 100 MG PO BID PRN for MUSCLE PAIN, #14 TAB Prov: TRACY PARRA DO 10/24/19 Naproxen (NAPROXEN) 375 Mg Tablet 375 MG PO TID PRN for PAIN, #30 TAB Prov: TRACY PARRA DO 10/24/19 Problem Qualifiers Primary Impression: Back pain Back pain location: low back pain Chronicity: acute Back pain laterality: bilateral Sciatica presence: without sciatica Qualified Codes: M54.5 - Low back pain TRACY PARRA DO Oct 24, 2019 12:52
[2019-10-24] MEDS ORDERED: KETOROLAC 60 MG/2 ML VIAL. IM ONE (13:00)
[2019-10-24] MEDS ORDERED: ORPHENADRINE CITRATE 60 MG/2 ML VIAL. IM ONE (13:00)
[2019-10-24] MEDS ORDERED: HYDR-3164 PO (13:40)
[2019-10-24] MEDS ORDERED: ORPH100T PO (13:40)
[2019-10-24] MEDS ORDERED: NAPR-695 PO (13:40)
[2019-10-24 14:00] VITALS: BP 181/108
== END 2019-10-24 14:09 | disposition home or self-care (01) ==
LOC: ER 11:11
DX: M54.5 Low back pain (principal); E11.9 Type 2 diabetes mellitus without complications; E78.00 Pure hypercholesterolemia, unspecified; I10 Essential (primary) hypertension
CPT/HCPCS: 96372; 99284; J1885; J2360

== ENCOUNTER 2019-10-29 21:38 | Emergency (ER) | payer MEDICARE ==
[~2019-10-29] VITALS: Ht 185.4 cm; Wt 84.8 kg
[~2019-10-29 21:38] MED LIST changes: +NAPR-695 PO; +ORPH100T PO
[2019-10-29 22:13] LABS: BASO % 1 % (0-3); EOS # 0.1 x10^3/uL (0.0-0.7); EOS % 2 % (0-3); HEMATOCRIT 42.7 % (39.0-53.0); HEMOGLOBIN 14.1 g/dL (13.0-17.5); LYMPH # 1.9 x10^3/uL (1.0-4.8); LYMPH % 33 % (24-48); MEAN CORPUSCULAR HEMOGLOBIN 30 pg (25-35); MEAN CORPUSCULAR HGB CONC 33 g/dL (31-37); MEAN CORPUSCULAR VOLUME 91 fL (79-100); MONO # 0.2 x10^3/uL (0.0-1.1); MONO % 4 % (0-9); NEUT # 3.6 x10^3/uL (1.8-7.7); NEUT % 61 % (31-73); PLATELET COUNT 203 x10^3/uL (140-400); RED BLOOD COUNT 4.68 x10^6/uL (4.30-5.70); WHITE BLOOD COUNT 5.9 x10^3/uL (4.0-11.0)
[2019-10-29] MEDS ORDERED: IV NORMAL SALINE 1000ML BAG 1,000 ML IV ONE (22:15)
[2019-10-29 22:42] LABS: CREATININE 1.3 mg/dL (0.7-1.3); GFR 64.1; POTASSIUM 3.5 mmol/L (3.5-5.1)
[2019-10-29 22:46] LABS: ALBUMIN/GLOBULIN RATIO 1.1 (1.0-1.7); TOTAL BILIRUBIN 0.4 mg/dL (0.2-1.0); TOTAL PROTEIN 7.6 g/dL (6.4-8.2)
--- NOTE | 2019-10-29 22:51 | RAD ---
Examination: Frontal view of the chest, 2 views of the right shoulder, frontal view the pelvis HISTORY: History of confusion, fall, pain COMPARISON: None available FINDINGS: The cardiomediastinal silhouette grossly appears unremarkable. The lungs are clear. The humerus head is within the glenoid. Mild degenerative changes identified in the glenohumeral joint, acromioclavicular joint. The bilateral femoral heads within the acetabula. Moderate joint space loss identified in the bilateral hip joints likely degenerative changes. Impression: 1. No acute osseous findings. 2. No acute cardiopulmonary findings Electronically signed by: Ever Casas MD (10/29/2019 10:47 PM) [facility]
[2019-10-29] MEDS ORDERED: LABETALOL 20 MG/4 ML DISP.SYRIN. IVP ONE (23:15)
[2019-10-29 23:22] LABS: BILIRUBIN,URINE NEGATIVE (NEG); CLARITY,URINE CLEAR; COLOR,URINE YELLOW; NITRITE,URINE NEGATIVE (NEG); PH,URINE 6.5; PROTEIN,URINE NEGATIVE (NEG-TRACE); UROBILINOGEN,URINE 0.2 mg/dL (0.2 mg/dL)
[2019-10-29 23:30] LABS: BACTERIA,URINE 0 /HPF (0-FEW); HYALINE CASTS, URINE OCCASIONAL /HPF; RBC,URINE 0 /HPF (0-2); SQUAMOUS EPITHELIAL CELL,UR OCC /LPF; WBC,URINE 0 /HPF (0-4)
[2019-10-29 23:50] VITALS: BP 195/95
--- NOTE | 2019-10-29 23:50 | PHYS DOC ---
Past Medical History Past Medical History: Arthritis, Diabetes-Type II, High Cholesterol, Hypertension, Prostatitis Additional Past Medical Histor: enlarged prostate, PTS BP MEDS WERE DC'D Past Surgical History: No Surgical History, Other Additional Past Surgical Histo: cataract Left Alcohol Use: None Drug Use: None Adult General Chief Complaint Chief Complaint: MECHANICAL FALL HPI HPI Patient is a 79 year old [f__sex] who presents with [] Review of Systems Review of Systems Constitutional: Denies fever or chills [] Eyes: Denies change in visual acuity, redness, or eye pain [] HENT: Denies nasal congestion or sore throat [] Respiratory: Denies cough or shortness of breath [] Cardiovascular: No additional information not addressed in HPI [] GI: Denies abdominal pain, nausea, vomiting, bloody stools or diarrhea [] : Denies dysuria or hematuria [] Musculoskeletal: Denies back pain or joint pain [] Integument: Denies rash or skin lesions [] Neurologic: Denies headache, focal weakness or sensory changes [] Endocrine: Denies polyuria or polydipsia [] All other systems were reviewed and found to be within normal limits, except as documented in this note. Current Medications Current Medications Current Medications Medications (Trade) Dose Ordered Sig/Csotty Start Time Stop Time Status Last Admin Dose Admin Labetalol HCl (Normodyne Iv Push) 10 mg 1X ONCE 10/29/19 23:15 10/29/19 23:16 DC 10/29/19 23:14 10 MG Sodium Chloride 1,000 ml @ 1,000 mls/hr 1X ONCE 10/29/19 22:15 10/29/19 23:14 DC 10/29/19 22:12 1,000 MLS/HR Allergies Allergies Allergies Coded Allergies Type Severity Reaction Last Updated Verified No Known Drug Allergies 12/15/16 No Physical Exam Physical Exam Constitutional: Well developed, well nourished, no acute distress, non-toxic appearance. [] HENT: Normocephalic, atraumatic, bilateral external ears normal, oropharynx moist, no oral exudates, nose normal. [] Eyes: PERRLA, EOMI, conjunctiva normal, no discharge. [] Neck: Normal range of motion, no tenderness, supple, no stridor. [] Cardiovascular:Heart rate regular rhythm, no murmur [] Lungs & Thorax: Bilateral breath sounds clear to auscultation [] Abdomen: Bowel sounds normal, soft, no tenderness, no masses, no pulsatile masses. [] Skin: Warm, dry, no erythema, no rash. [] Back: No tenderness, no CVA tenderness. [] Extremities: No tenderness, no cyanosis, no clubbing, ROM intact, no edema. [] Neurologic: Alert and oriented X 3, normal motor function, normal sensory function, no focal deficits noted. [] Psychologic: Affect normal, judgement normal, mood normal. [] Current Patient Data Vital Signs Vital Signs Date Time Temp Pulse Resp B/P (MAP) Pulse Ox O2 Delivery O2 Flow Rate FiO2 10/29/19 23:18 80 16 94 10/29/19 23:14 197/102 10/29/19 22:00 97.7 Room Air 97.7 Lab Values Laboratory Tests Test 10/29/19 21:50 10/29/19 22:20 10/29/19 23:15 White Blood Count 5.9 x10^3/uL (4.0-11.0) Red Blood Count 4.68 x10^6/uL (4.30-5.70) Hemoglobin 14.1 g/dL (13.0-17.5) Hematocrit 42.7 % (39.0-53.0) Mean Corpuscular Volume 91 fL (79-100) Mean Corpuscular Hemoglobin 30 pg (25-35) Mean Corpuscular Hemoglobin Concent 33 g/dL (31-37) Red Cell Distribution Width 14.0 % (11.5-14.5) Platelet Count 203 x10^3/uL (140-400) Neutrophils (%) (Auto) 61 % (31-73) Lymphocytes (%) (Auto) 33 % (24-48) Monocytes (%) (Auto) 4 % (0-9) Eosinophils (%) (Auto) 2 % (0-3) Basophils (%) (Auto) 1 % (0-3) Neutrophils # (Auto) 3.6 x10^3/uL (1.8-7.7) Lymphocytes # (Auto) 1.9 x10^3/uL (1.0-4.8) Monocytes # (Auto) 0.2 x10^3/uL (0.0-1.1) Eosinophils # (Auto) 0.1 x10^3/uL (0.0-0.7) Basophils # (Auto) 0.0 x10^3/uL (0.0-0.2) Sodium Level 142 mmol/L (136-145) Potassium Level 3.5 mmol/L (3.5-5.1) Chloride Level 104 mmol/L (98-107) Carbon Dioxide Level 29 mmol/L (21-32) Anion Gap 9 (6-14) Blood Urea Nitrogen 10 mg/dL (8-26) Creatinine 1.3 mg/dL (0.7-1.3) Estimated GFR (Cockcroft-Gault) 64.1 BUN/Creatinine Ratio 8 (6-20) Glucose Level 165 mg/dL (70-99) H Lactic Acid Level 1.3 mmol/L (0.4-2.0) Calcium Level 9.0 mg/dL (8.5-10.1) Magnesium Level 2.0 mg/dL (1.8-2.4) Total Bilirubin 0.4 mg/dL (0.2-1.0) Aspartate Amino Transferase (AST) 16 U/L (15-37) Alanine Aminotransferase (ALT) 10 U/L (16-63) L Alkaline Phosphatase 49 U/L (46-116) Creatine Kinase 411 U/L (39-308) H Creatine Kinase MB (Mass) 2.1 ng/mL (0.0-3.6) Creatine Kinase MB Relative Index 0.5 % (0-4) Troponin I Quantitative < 0.017 ng/mL (0.000-0.055) Total Protein 7.6 g/dL (6.4-8.2) Albumin 4.0 g/dL (3.4-5.0) Albumin/Globulin Ratio 1.1 (1.0-1.7) Lipase 77 U/L (73-393) Ammonia 11 mcmol/L (11-34) Urine Collection Type Unknown Urine Color Yellow Urine Clarity Clear Urine pH 6.5 Urine Specific Dolores 1.010 Urine Protein Negative mg/dL (NEG-TRACE) Urine Glucose (UA) Negative mg/dL (NEG) Urine Ketones (Stick) Negative mg/dL (NEG) Urine Blood Negative (NEG) Urine Nitrite Negative (NEG) Urine Bilirubin Negative (NEG) Urine Urobilinogen Dipstick 0.2 mg/dL (0.2 mg/dL) Urine Leukocyte Esterase Negative (NEG) Urine RBC 0 /HPF (0-2) Urine WBC 0 /HPF (0-4) Urine Squamous Epithelial Cells Occ /LPF Urine Bacteria 0 /HPF (0-FEW) Urine Hyaline Casts Occasional /HPF Urine Mucus Slight /LPF Laboratory Tests 10/29/19 21:50 Laboratory Tests 10/29/19 21:50 EKG EKG @2217 NSR at 87bpm, NO ST elevation, wandering baseline Radiology/Procedures Radiology/Procedures PROCEDURE: SHOULDER 2+V RIGHT Examination: Frontal view of the chest, 2 views of the right shoulder, frontal view the pelvis HISTORY: History of confusion, fall, pain COMPARISON: None available FINDINGS: The cardiomediastinal silhouette grossly appears unremarkable. The lungs are clear. The humerus head is within the glenoid. Mild degenerative changes identified in the glenohumeral joint, acromioclavicular joint. The bilateral femoral heads within the acetabula. Moderate joint space loss identified in the bilateral hip joints likely degenerative changes. Impression: 1. No acute osseous findings. 2. No acute cardiopulmonary findings Electronically signed by: Ever Casas MD (10/29/2019 10:47 PM) [facility] PROCEDURE: PELVIS Examination: Frontal view of the chest, 2 views of the right shoulder, frontal view the pelvis HISTORY: History of confusion, fall, pain COMPARISON: None available FINDINGS: The cardiomediastinal silhouette grossly appears unremarkable. The lungs are clear. The humerus head is within the glenoid. Mild degenerative changes identified in the glenohumeral joint, acromioclavicular joint. The bilateral femoral heads within the acetabula. Moderate joint space loss identified in the bilateral hip joints likely degenerative changes. Impression: 1. No acute osseous findings. 2. No acute cardiopulmonary findings Electronically signed by: Ever Casas MD (10/29/2019 10:47 PM) [facility] PROCEDURE: PORTABLE CHEST 1V Examination: Frontal view of the chest, 2 views of the right shoulder, frontal view the pelvis HISTORY: History of confusion, fall, pain COMPARISON: None available FINDINGS: The cardiomediastinal silhouette grossly appears unremarkable. The lungs are clear. The humerus head is within the glenoid. Mild degenerative changes identified in the glenohumeral joint, acromioclavicular joint. The bilateral femoral heads within the acetabula. Moderate joint space loss identified in the bilateral hip joints likely degenerative changes. Impression: 1. No acute osseous findings. 2. No acute cardiopulmonary findings Electronically signed by: Ever Casas MD (10/29/2019 10:47 PM) [facility] PROCEDURE: CT HEAD AND CERVICAL SPINE WO CT brain without contrast, CT cervical spine without contrast. HISTORY: Pain, fall, confusion. CT brain CT scan of the brain was done without contrast. Comparison is made with a study from January 2019. Sinuses are clear. A skull fracture is not identified. There is no mass or shift of the midline. Ventricles are normal in size. There is no intracranial hemorrhage or subdural hematoma. IMPRESSION: 1. No intracranial hemorrhage or acute finding noted. CT cervical spine Axial CT images were obtained to the cervical spine. Sagittal and coronal reconstructed instructed images were reviewed. Thyroid is homogeneous. There is extensive degenerative change in the cervical spine. There is spinal stenosis measuring 7 mm C 3-4, central spurring and spinal stenosis at C4-5 measuring 8 mm. Spurring and narrowing at C5-6 measuring 7.5 mm. There is also evidence of foraminal stenosis at multiple levels. There is no acute fracture. IMPRESSION: 1. Extensive degenerative disc disease in the cervical spine. 2, Spinal stenosis. 3. Foraminal stenosis. 4. No acute fracture. PQRS Compliance Statement: One or more of the following individualized dose reduction techniques were utilized for this examination: 1. Automated exposure control 2. Adjustment of the mA and/or kV according to patient size 3. Use of iterative reconstruction technique Electronically signed by: Yoni Ludwig MD (10/29/2019 11:48 PM) [facility] Course & Med Decision Making Course & Med Decision Making Pertinent Labs and Imaging studies reviewed. (See chart for details) [] Dragon Disclaimer Dragon Disclaimer This electronic medical record was generated, in whole or in part, using a voice recognition dictation system. Departure Departure Impression: Primary Impression: Fall Additional Impressions: Shoulder contusion Visual hallucinations Hypertension Disposition: HOME, SELF-CARE Condition: STABLE Referrals: SHANICE KAY (PCP) Patient Instructions: Dementia, [id number], Fall Prevention and Home Safety, [id number], Hallucinations and Delusions, Shoulder Pain, [id number] Additional Instructions: Use over the counter Tylenol and/or Ibuprofen for pain and discomfort. Scripts Clonidine Hcl (CLONIDINE HCL) 0.1 Mg Tablet 0.1 MG PO BID PRN for ELEVATED BP, SEE COMMENTS, #20 TAB Prov: TRACY PARRA DO 10/30/19 Problem Qualifiers Primary Impression: Fall Encounter type: initial encounter Qualified Codes: W19.XXXA - Unspecified fall, initial encounter Additional Impressions: Shoulder contusion Encounter type: initial encounter Laterality: right Qualified Codes: S40.011A - Contusion of right shoulder, initial encounter Hypertension Hypertension type: unspecified Qualified Codes: I10 - Essential (primary) hypertension TRACY PARRA DO Oct 29, 2019 23:50
[2019-10-30] MEDS ORDERED: CLON0.1T PO (00:05)
--- NOTE | 2019-10-30 06:52 | EKG ---
[facility] [address] [place] [address] Test Date: 2019-10-29 Test Time: 22:17:08 Pat Name: LAURA SANCHEZ Department: Room: Gender: M Napper Grinder: : [id number] Requested By: TRACY PARRA Order Number: [id number] Reading MD: Measurements Intervals [place] Rate: 87 P: 49 GA: 262 QRS: 5 QRSD: 72 T: 87 QT: 396 QTc: 477 Interpretive Statements SINUS RHYTHM PROLONGED GA INTERVAL T ABNORMALITY IN HIGH LATERAL LEADS PROLONGED QT ABNORMAL ECG RI6.01 No previous ECG available for comparison
== END 2019-10-30 00:12 | disposition home or self-care (01) ==
LOC: ER 21:38
DX: S40.011A Contusion of right shoulder, initial encounter (principal); R44.1 Visual hallucinations; I10 Essential (primary) hypertension; R51 Headache; M48.02 Spinal stenosis, cervical region; E11.9 Type 2 diabetes mellitus without complications; E78.00 Pure hypercholesterolemia, unspecified; W10.8XXA Fall (on) (from) other stairs and steps, initial encounter; Y93.89 Activity, other specified; Y92.89 Other specified places as the place of occurrence of the external cause; Y99.8 Other external cause status
CPT/HCPCS: 36415; 70450; 71045; 72125; 72170; 73030; 80053; 81001; 82140; 82553; 83605; 83690; 83735; 84484; 85025; 93005; 96361; 96374; 99285; J3490; J7030

== ENCOUNTER 2020-01-31 09:19 | Emergency (ER) | payer MEDICARE ==
[~2020-01-31] VITALS: Ht 175.3 cm; Wt 84.4 kg
[~2020-01-31 09:19] MED LIST changes: +CLON0.1T PO
--- NOTE | 2020-01-31 09:46 | PHYS DOC ---
Past Medical History Past Medical History: Arthritis, Diabetes-Type II, High Cholesterol, Hype rtension, Prostatitis, Other Additional Past Medical Histor: enlarged prostate Past Surgical History: Other Additional Past Surgical Histo: cataract Left Smoking Status: Current Every Day Smoker Additional Information: 1 PPD Alcohol Use: None Drug Use: None General Adult EDM: Chief Complaint: SHORTNESS OF BREATH HPI: HPI: Patient is a 79 year old smoker male with history of hypertension, dyslipidemia, diabetes mellitus, arthritis, BPH and prostatitis who presents with complaining of shortness of breath. Patient complaining of nonproductive cough for 1 week and episodes of exertional shortness of breath without fever, chest pain, headache, sore throat, nasal congestion, sick contacts, nausea and vomiting, diarrhea and constipation. Patient states he has appointment with his primary care physician in 2 months and did not have oxygen or inhaler at home and decided to come to ER. Patient did not have diagnosis of COPD. Review of Systems: Review of Systems: Constitutional: Denies fever or chills. [] Eyes: Denies change in visual acuity. [] HENT: Denies nasal congestion or sore throat. [] Respiratory: Reports cough and shortness of breath Cardiovascular: Denies chest pain or edema. [] GI: Denies abdominal pain, nausea, vomiting, bloody stools or diarrhea. [] : Denies dysuria. [] Musculoskeletal: Denies back pain or joint pain. [] Integument: Denies rash. [] Neurologic: Denies headache, focal weakness or sensory changes. [] Endocrine: Denies polyuria or polydipsia. [] Lymphatic: Denies swollen glands. [] Psychiatric: Denies depression or anxiety. [] Heart Score: Risk Factors: Risk Factors: DM, Current or recent (<one month) smoker, HTN, HLP, family history of CAD, obesity. Risk Scores: Score 0 - 3: 2.5% MACE over next 6 weeks - Discharge Home Score 4 - 6: 20.3% MACE over next 6 weeks - Admit for Clinical Observation Score 7 - 10: 72.7% MACE over next 6 weeks - Early Invasive Strategies Allergies: Allergies: Allergies Coded Allergies Type Severity Reaction Last Updated Verified No Known Drug Allergies 12/15/16 No Physical Exam: PE: Constitutional: Well developed, well nourished, no acute distress, non-toxic appearance, afebrile, O2 sat of 95% at room air. [] HENT: Normocephalic, atraumatic. Eyes: PERRLA, EOMI, conjunctiva normal, no discharge. [] Neck: Normal range of motion, no tenderness, supple, no stridor. [] Cardiovascular:Heart rate regular rhythm, no murmur [] Lungs & Thorax: No respiratory distress, mild decrease of air movement bilaterally, no wheezing or rhonchi. Abdomen: Bowel sounds normal, soft, no tenderness, no masses, no pulsatile masses. [] Skin: Warm, dry, no erythema, no rash. [] Back: No tenderness, no CVA tenderness. [] Extremities: No tenderness, no cyanosis, no clubbing, ROM intact, no edema. [] Neurologic: Alert and oriented X 3, no focal deficits noted. [] Psychologic: Affect normal, judgement normal, mood normal. [] Current Patient Data: Vital Signs: Vital Signs Date Time Temp Pulse Resp B/P (MAP) Pulse Ox O2 Delivery O2 Flow Rate FiO2 01/31/20 09:27 98.4 67 20 171/91 (117) 96 Room Air 98.4 EKG: EKG: EKG interpreted by me. EKG at 0 944 showed normal sinus rhythm at rate of 67 prolonged SC and QT intervals, no acute ST and T wave elevation. Radiology/Procedures: Radiology/Procedures: IMAGING REPORT Signed PATIENT: LAURA SANCHEZ ACCOUNT: [id number] : 1940 LOCATION: ER AGE: 79 SEX: M EXAM STATUS: REG ER ORD. PHYSICIAN: LINDSAY TIM MD REASON: Shortness of breath PROCEDURE: PORTABLE CHEST 1V PORTABLE CHEST 1V INDICATION: Dyspnea. COMPARISON STUDY: 10/29/2019. FINDINGS: Lungs: Normal lung volume. No pulmonary mass or consolidation. Linear left mid lung opacity, likely subsegmental atelectasis. The tracheobronchial tree and hilar structures are normal. Pleura: No pleural effusion or pneumothorax. Heart and Mediastinum: The cardiomediastinal silhouette is normal. The great vessels of the thorax are normal. Bones and Soft Tissues: The bones and soft tissues are within normal limits. IMPRESSION: No consolidation. Electronically signed by: Marcela Arambula MD (01/31/2020 10:36 AM) [id number] DICTATED and SIGNED BY: MARCELA ARAMBULA MD DATE: 01/31/20 1036 Course & Med Decision Making: Course & Med Decision Making Pertinent Labs and Imaging studies reviewed. (See chart for details) Evaluation of patient inertial 79-year-old male patient with history of smoking without diagnosis of COPD presented to ER with complaint of shortness of breath and cough without fever and chest pain. Patient had a stable vital signs without hypoxia. Labs was unremarkable except for mild elevation of creatinine. Patient was advised to follow-up with outpatient COVID 19 and quit smoking. Plan discharge patient home with diagnosis of acute bronchitis. I've spoken with the patient and/or caregivers. I've explained the patient's condition, diagnosis and treatment plan based on information available to me at this time. I've answered the patient's and/or caregivers questions and addressed any concerns. The patient and/or caregivers have a good understanding the patient's diagnosis, condition and treatment plan as can be expected at this point. Vital signs have been stabilized. The patient's condition is stable for discharge from the emergency department. The patient will pursue further outpatient evaluation with her primary care provider or other designated consulting physician as outlined in the discharge instructions. Patient and/or caregivers are agreeable to this plan of care and follow-up instructions have been explained in detail. The patient and/or caregivers have received these instructions in written format and expressed understanding of these discharge instructions. The patient and her caregivers are aware that if any significant change in condition or worsening of symptoms should prompt him to immediately return to this of the closest emergency department. If an emergent department is not readily available I would encourage him to call 911. Kaykay Disclaimer: Kaykay Disclaimer: This electronic medical record was generated, in whole or in part, using a voice recognition dictation system. Departure Departure Impression: Primary Impression: Acute bronchitis Qualified Codes: J20.9 - Acute bronchitis, unspecified Additional Impressions: Tobacco abuse Tobacco abuse counseling Suspected 2019 novel coronavirus infection Renal insufficiency Disposition: HOME, SELF-CARE (At 1111) Condition: STABLE Referrals: UNKNOWN PCP NAME (PCP) Patient Instructions: Acute Bronchitis, Smoking Cessation, Tips For Success Additional Instructions: You have a viral syndrome which may include symptoms like muscle aches, fevers, chills, runny nose, cough, sneezing, sore throat, nausea, vomiting, or diarrhea. One of the potential viruses that you may have is SARS-CoV-2, the virus that causes COVID-19, also known as the Coronavirus. You are just as likely to have a different viral infection such as the common cold, flu, etc. Most patients with the Coronavirus have mild symptoms and recover on their own. Resting, staying hydrated, and sleep based on known cases can be helpful. As of todays visit, you are well enough to go home and treat your symptoms with oral fluids and over the counter medications. Coronavirus testing is not performed on most people with mild symptoms who are being discharged from the emergency department. If Coronavirus testing was performed today the results will not be available for possibly up to 3-4 days. If your result is positive you will be contacted. Please follow the following precautions at home: 1) Stay home except to get medical care. 2) As advised by the CDC, we recommend that you stay in your home and minimize contact with other people. We do not want you to spread the infection. 3) Those who are older or have significant medical issues may have more severe symptoms from this infection. We recommend self-isolation FOR AT LEAST 7 DAYS after your 1st day of symptoms. AFTER you feel better please wait AT LEAST ANOTHER WEEK before returning to regular activities and being around other people. 4) IF you become sicker and have difficulty breathing, chest pain, are unable to eat/drink, severe vomiting, diarrhea, or weakness you may need to return to the Emergency Department. 5) You should restrict activities outside of your home, except for getting medical care. DO NOT go to work, school, or public areas. Avoid using public transportation, ride sharing, or taxis. 6) Separate yourself from other people in your home. You should use a separate bathroom if possible. 7) Avoid sharing personal household items such as dishes, cups, eating utensils, towels, etc. 8) Clean all high touch surfaces every day (door knobs, counter tops, etc). Use a household cleaning spray or wipe per label instructions. 9) Clean your hands often. Wash your hands with soap and water for at least 20 seconds. 10) Cover your mouth and nose when you cough or sneeze. 11) Throw used tissues in the trash and immediately wash your hands. For additional resources please visit the CDC website or the [facility] ([phone]), you may also call 311 for further information. Thank you for visiting [facility]. We appreciate you trusting us with your care. If any additional problems come up don't hesitate to return to visit us. Please follow up with your primary care provider so they can plan additional care if needed and know about the problem that you had. If symptoms worsen come back to the Emergency Department. Any concerning symptoms that start such as chest pain, shortness of air, weakness or numbness on one side of the body, running high fevers or any other concerning symptoms return to the ER. Scripts [COVID -19 test] No Conflict Check Prov: LINDSAY TIM MD 01/31/20 Benzonatate (TESSALON PERLE) 100 Mg Capsule 1 CAP PO TID for cough, #21 CAP Prov: LINDSAY TIM MD 01/31/20 Doxycycline Hyclate (DOXYCYCLINE HYCLATE) 100 Mg Capsule 1 CAP PO BID, #14 CAP Prov: LINDSAY TIM MD 01/31/20 Albuterol Sulfate (PROAIR HFA INHALER) 8.5 Gm Hfa.aer.ad 2 PUFF IH PRN Q4-6HRS PRN for wheezing for 21 Days, #1 INHALER 0 Refills Prov: LINDSAY TIM MD 01/31/20 Methylprednisolone (MEDROL) 4 Mg Tab.ds.pk 1 PKG PO UD for inflammation, #1 PKG Prov: LINDSAY TIM MD 01/31/20 Critical Care Time Critical care time was 50 minutes exclusive of procedures. COVID-19 Assessment: COVID-19 Patient Risks: Age 65 or older: Yes Sign of co-morbidity: Yes Exp to person + for COVID: No Exp to PUI: No Travel from affected area: No Lower respiratory symptoms: Yes Fever: No Other: No PPE Use: Full PPE with N95 mask or PAPR: Yes LINDSAY TIM MD Jan 31, 2020 09:46
[2020-01-31 10:23] LABS: BASO % 0 % (0-3); EOS # 0.1 x10^3/uL (0.0-0.7); EOS % 1 % (0-3); HEMATOCRIT 44.8 % (39.0-53.0); HEMOGLOBIN 14.7 g/dL (13.0-17.5); LYMPH # 2.4 x10^3/uL (1.0-4.8); LYMPH % 42 % (24-48); MEAN CORPUSCULAR HEMOGLOBIN 30 pg (25-35); MEAN CORPUSCULAR HGB CONC 33 g/dL (31-37); MEAN CORPUSCULAR VOLUME 92 fL (79-100); MONO # 0.3 x10^3/uL (0.0-1.1); MONO % 5 % (0-9); NEUT # 2.9 x10^3/uL (1.8-7.7); NEUT % 52 % (31-73); PLATELET COUNT 233 x10^3/uL (140-400); RED BLOOD COUNT 4.88 x10^6/uL (4.30-5.70); RED CELL DISTRIBUTION WIDTH 15.1 % (11.5-14.5); WHITE BLOOD COUNT 5.6 x10^3/uL (4.0-11.0)
[2020-01-31 10:34] LABS: CALCIUM 8.9 mg/dL (8.5-10.1); CREATININE 1.4 mg/dL (0.7-1.3); GFR 58.9; POTASSIUM 3.5 mmol/L (3.5-5.1)
[2020-01-31 10:39] LABS: ALBUMIN 3.6 g/dL (3.4-5.0); ALBUMIN/GLOBULIN RATIO 0.9 (1.0-1.7); TOTAL BILIRUBIN 0.5 mg/dL (0.2-1.0); TOTAL PROTEIN 7.5 g/dL (6.4-8.2)
--- NOTE | 2020-01-31 10:39 | RAD ---
PORTABLE CHEST 1V INDICATION: Dyspnea. COMPARISON STUDY: 10/29/2019. FINDINGS: Lungs: Normal lung volume. No pulmonary mass or consolidation. Linear left mid lung opacity, likely subsegmental atelectasis. The tracheobronchial tree and hilar structures are normal. Pleura: No pleural effusion or pneumothorax. Heart and Mediastinum: The cardiomediastinal silhouette is normal. The great vessels of the thorax are normal. Bones and Soft Tissues: The bones and soft tissues are within normal limits. IMPRESSION: No consolidation. Electronically signed by: Ifenayi Murrell MD (01/31/2020 10:36 AM) [id number]
[2020-01-31 10:40] LABS: PROTHROMBIN TIME PATIENT 12.6 SEC (11.7-14.0)
[2020-01-31 10:47] LABS: INFLUENZA A PATIENT NEGATIVE (NEGATIVE); INFLUENZA B PATIENT NEGATIVE (NEGATIVE)
[2020-01-31] MEDS ORDERED: BENZ100C PO (11:18)
[2020-01-31] MEDS ORDERED: METH4TAB2 PO (11:18)
[2020-01-31] MEDS ORDERED: DOXY100C2 PO (11:18)
[2020-01-31] MEDS ORDERED: ALBU2.5V8 IH (11:18)
[2020-01-31] MEDS ORDERED: COVID (11:19)
[2020-01-31] MEDS ORDERED: [UNRECOGNIZED DRUG - OTHER] (11:19)
[2020-01-31 11:24] VITALS: BP 147/81
--- NOTE | 2020-02-01 01:12 | EKG ---
[facility] [address] [place] [address] Test Date: 2020-01-31 Test Time: 09:44:27 Pat Name: LAURA SANCHEZ Department: Room: Gender: M Stonemason: : 1940 Requested By: LINDSAY TIM Order Number: [id number] Reading MD: Ricardo Madrid MD Measurements Intervals [place] Rate: 67 P: 0 MD: 234 QRS: 12 QRSD: 68 T: 110 QT: 418 QTc: 445 Interpretive Statements SINUS RHYTHM PROLONGED MD INTERVAL Electronically Signed On 02-02-2020 9:42:18 CDT by Ricardo Madrid MD
== END 2020-01-31 11:38 | disposition home or self-care (01) ==
LOC: ER 09:19
DX: Z20.828 Contact with and (suspected) exposure to other viral communicable diseases (principal); J20.9 Acute bronchitis, unspecified; N28.9 Disorder of kidney and ureter, unspecified; Z71.6 Tobacco abuse counseling; Z72.0 Tobacco use; E11.9 Type 2 diabetes mellitus without complications; E78.00 Pure hypercholesterolemia, unspecified; I10 Essential (primary) hypertension
CPT/HCPCS: 36415; 71045; 80053; 82550; 83605; 83880; 84484; 85025; 85610; 87804; 93005; 99285-25

== ENCOUNTER 2020-03-17 18:08 | Emergency (ER) | payer MEDICARE ==
[~2020-03-17] VITALS: Ht 175.3 cm; Wt 85.9 kg
[~2020-03-17 18:08] MED LIST changes: +ALBU2.5V8 IH; +BENZ100C PO; +COVID; +DOXY100C2 PO; +METH4TAB2 PO; +[UNRECOGNIZED DRUG - OTHER]
[2020-03-17 18:36] LABS: BASO # 0.1 x10^3/uL (0.0-0.2); BASO % 1 % (0-3); EOS # 0.1 x10^3/uL (0.0-0.7); EOS % 1 % (0-3); HEMATOCRIT 38.7 % (39.0-53.0); HEMOGLOBIN 12.9 g/dL (13.0-17.5); LYMPH # 2.6 x10^3/uL (1.0-4.8); LYMPH % 48 % (24-48); MEAN CORPUSCULAR HEMOGLOBIN 30 pg (25-35); MEAN CORPUSCULAR HGB CONC 33 g/dL (31-37); MEAN CORPUSCULAR VOLUME 91 fL (79-100); MONO # 0.5 x10^3/uL (0.0-1.1); MONO % 9 % (0-9); NEUT # 2.2 x10^3/uL (1.8-7.7); NEUT % 41 % (31-73); PLATELET COUNT 201 x10^3/uL (140-400); RED BLOOD COUNT 4.25 x10^6/uL (4.30-5.70); RED CELL DISTRIBUTION WIDTH 14.4 % (11.5-14.5); WHITE BLOOD COUNT 5.3 x10^3/uL (4.0-11.0)
[2020-03-17 18:44] LABS: CALCIUM 8.4 mg/dL (8.5-10.1); CREATININE 1.3 mg/dL (0.7-1.3); GFR 64.1; POTASSIUM 3.5 mmol/L (3.5-5.1)
[2020-03-17 18:50] LABS: ALBUMIN 3.4 g/dL (3.4-5.0); MAGNESIUM 1.9 mg/dL (1.8-2.4); TOTAL BILIRUBIN 0.4 mg/dL (0.2-1.0); TOTAL PROTEIN 6.9 g/dL (6.4-8.2)
--- NOTE | 2020-03-17 18:52 | RAD ---
CT HEAD WO CONTRAST Date: 03/17/2020 6:25 PM Clinical Indication: Reason: altered mental status / Spl. Instructions: / History: Comparison: 10/29/2019. Technique: 5 mm axial tomographic images were obtained of the head without contrast. These were viewed on brain and bone windows. One or more of the following dose reduction techniques were utilized: Automated exposure control (AEC), Adjustment of mA and/or kV according to patient size, Use of iterative reconstruction technique such as ASiR, CT scan done according to ALARA and image gently/image wisely Findings: Mild generalized cerebral and cerebellar volume loss. Mild nonspecific periventricular hypoattenuation, most commonly seen with chronic small vessel ischemic disease. Calcified atherosclerosis of the bilateral cavernous and paraclinoid internal carotid arteries and intracranial vertebral arteries. No intra- or extra-axial mass or fluid collection. No acute hemorrhage. The ventricles are normal in size, shape, and morphology. The enriquez-white matter junction is normal. The subarachnoid cisterns are patent. The visualized paranasal sinuses are normal. The visualized portions of the orbits and globes are normal. The mastoid air cells are clear. The environmental health safety engineer topogram shows no lytic lesion or fracture. Impression: No acute intracranial process. Mild cerebral volume loss. Mild chronic small vessel ischemic disease. Electronically signed by: Ifeanyi Murrell MD (03/17/2020 6:49 PM) [id number]
[2020-03-17 19:29] LABS: BILIRUBIN,URINE NEGATIVE (NEG); CLARITY,URINE CLOUDY; COLOR,URINE YELLOW; NITRITE,URINE NEGATIVE (NEG); PH,URINE 5.5 (<5.0-8.0); PROTEIN,URINE NEGATIVE (NEG-TRACE)
[2020-03-17 19:37] LABS: BACTERIA,URINE 0 /HPF (0-FEW); RBC,URINE 0 /HPF (0-2); SQUAMOUS EPITHELIAL CELL,UR FEW /LPF; WBC,URINE 0 /HPF (0-4)
--- NOTE | 2020-03-17 20:03 | PHYS DOC ---
Past Medical History Past Medical History: Arthritis, Diabetes-Type II, High Cholesterol, Hypertension, Prostatitis, TIA, Other Additional Past Medical Histor: enlarged prostate Past Surgical History: Other Additional Past Surgical Histo: cataract Left Smoking Status: Current Every Day Smoker Alcohol Use: None Drug Use: None General Adult EDM: Chief Complaint: NEURO SYMPTOMS/DEFICITS HPI: HPI: Patient is an 79-year-old male who presents from home secondary to generalized weakness. Patient denies any pain. He denies any fever chills or sweats. He states he has had a little bit of a cough but only with cigarette smoking. He denies any nausea or vomiting. He denies any lateralizing neurologic weakness. He reiterates that it is a lack of energy. Family thinks he may have been confused briefly today. [] Review of Systems: Review of Systems: Constitutional: Reports generalized weakness [] Eyes: Denies change in visual acuity. [] HENT: Denies nasal congestion or sore throat. [] Respiratory: Denies cough or shortness of breath. [] Cardiovascular: Denies chest pain or edema. [] GI: Denies abdominal pain, nausea, vomiting, bloody stools or diarrhea. [] : Denies dysuria. [] Musculoskeletal: Denies back pain or joint pain. [] Integument: Denies rash. [] Neurologic: Denies headache, focal weakness or sensory changes. [] Endocrine: Denies polyuria or polydipsia. [] Lymphatic: Denies swollen glands. [] Psychiatric: Denies depression or anxiety. [] Heart Score: Risk Factors: Risk Factors: DM, Current or recent (<one month) smoker, HTN, HLP, family history of CAD, obesity. Risk Scores: Score 0 - 3: 2.5% MACE over next 6 weeks - Discharge Home Score 4 - 6: 20.3% MACE over next 6 weeks - Admit for Clinical Observation Score 7 - 10: 72.7% MACE over next 6 weeks - Early Invasive Strategies Allergies: Allergies: Allergies Coded Allergies Type Severity Reaction Last Updated Verified No Known Drug Allergies 12/15/16 No Physical Exam: PE: Constitutional: Well developed, well nourished, no acute distress, non-toxic appearance. [] HENT: Normocephalic, atraumatic, bilateral external ears normal, oropharynx moist, no oral exudates, nose normal. [] Eyes: PERRLA, EOMI, conjunctiva normal, no discharge. [] Neck: Normal range of motion, no tenderness, supple, no stridor. [] Cardiovascular:Heart rate regular rhythm, no murmur [] Lungs & Thorax: Bilateral breath sounds clear to auscultation [] Abdomen: Bowel sounds normal, soft, no tenderness, no masses, no pulsatile masses. [] Skin: Warm, dry, no erythema, no rash. [] Back: No tenderness, no CVA tenderness. [] Extremities: No tenderness, no cyanosis, no clubbing, ROM intact, no edema. [] Neurologic: Alert and oriented X 3, normal motor function, normal sensory function, no focal deficits noted. [] Psychologic: Depressed affect [] Current Patient Data: Labs: Laboratory Tests Test 03/17/20 18:22 03/17/20 19:19 White Blood Count 5.3 x10^3/uL (4.0-11.0) Red Blood Count 4.25 x10^6/uL (4.30-5.70) L Hemoglobin 12.9 g/dL (13.0-17.5) L Hematocrit 38.7 % (39.0-53.0) L Mean Corpuscular Volume 91 fL (79-100) Mean Corpuscular Hemoglobin 30 pg (25-35) Mean Corpuscular Hemoglobin Concent 33 g/dL (31-37) Red Cell Distribution Width 14.4 % (11.5-14.5) Platelet Count 201 x10^3/uL (140-400) Neutrophils (%) (Auto) 41 % (31-73) Lymphocytes (%) (Auto) 48 % (24-48) Monocytes (%) (Auto) 9 % (0-9) Eosinophils (%) (Auto) 1 % (0-3) Basophils (%) (Auto) 1 % (0-3) Neutrophils # (Auto) 2.2 x10^3/uL (1.8-7.7) Lymphocytes # (Auto) 2.6 x10^3/uL (1.0-4.8) Monocytes # (Auto) 0.5 x10^3/uL (0.0-1.1) Eosinophils # (Auto) 0.1 x10^3/uL (0.0-0.7) Basophils # (Auto) 0.1 x10^3/uL (0.0-0.2) Sodium Level 144 mmol/L (136-145) Potassium Level 3.5 mmol/L (3.5-5.1) Chloride Level 105 mmol/L (98-107) Carbon Dioxide Level 29 mmol/L (21-32) Anion Gap 10 (6-14) Blood Urea Nitrogen 16 mg/dL (8-26) Creatinine 1.3 mg/dL (0.7-1.3) Estimated GFR (Cockcroft-Gault) 64.1 BUN/Creatinine Ratio 12 (6-20) Glucose Level 152 mg/dL (70-99) H Calcium Level 8.4 mg/dL (8.5-10.1) L Magnesium Level 1.9 mg/dL (1.8-2.4) Total Bilirubin 0.4 mg/dL (0.2-1.0) Aspartate Amino Transferase (AST) 19 U/L (15-37) Alanine Aminotransferase (ALT) 27 U/L (16-63) Alkaline Phosphatase 55 U/L (46-116) Troponin I Quantitative < 0.017 ng/mL (0.000-0.055) RF-Xre-I-Type Natriuretic Peptide 198 pg/mL (0-449) Total Protein 6.9 g/dL (6.4-8.2) Albumin 3.4 g/dL (3.4-5.0) Albumin/Globulin Ratio 1.0 (1.0-1.7) Urine Collection Type Unknown Urine Color Yellow Urine Clarity Cloudy Urine pH 5.5 (<5.0-8.0) Urine Specific [place] 1.020 (1.000-1.030) Urine Protein Negative mg/dL (NEG-TRACE) Urine Glucose (UA) Negative mg/dL (NEG) Urine Ketones (Stick) Negative mg/dL (NEG) Urine Blood Negative (NEG) Urine Nitrite Negative (NEG) Urine Bilirubin Negative (NEG) Urine Urobilinogen Dipstick 1.0 mg/dL (0.2 mg/dL) Urine Leukocyte Esterase Negative (NEG) Urine RBC 0 /HPF (0-2) Urine WBC 0 /HPF (0-4) Urine Squamous Epithelial Cells Few /LPF Urine Bacteria 0 /HPF (0-FEW) Urine Mucus Slight /LPF Laboratory Tests 03/17/20 18:22 Laboratory Tests 03/17/20 18:22 Vital Signs: Vital Signs Date Time Temp Pulse Resp B/P (MAP) Pulse Ox O2 Delivery O2 Flow Rate FiO2 03/17/20 18:18 98.5 92 18 177/86 (116) 95 Room Air 98.5 EKG: EKG: EKG: Normal sinus rhythm rate of [address]-T changes [] Radiology/Procedures: Radiology/Procedures: [] Impression: PROCEDURE: CT HEAD WO CONTRAST CT HEAD WO CONTRAST Date: 03/17/2020 6:25 PM Clinical Indication: Reason: altered mental status / Spl. Instructions: / History: Comparison: 10/29/2019. Technique: 5 mm axial tomographic images were obtained of the head without contrast. These were viewed on brain and bone windows. One or more of the following dose reduction techniques were utilized: Automated exposure control (AEC), Adjustment of mA and/or kV according to patient size, Use of iterative reconstruction technique such as ASiR, CT scan done according to ALARA and image gently/image wisely Findings: Mild generalized cerebral and cerebellar volume loss. Mild nonspecific periventricular hypoattenuation, most commonly seen with chronic small vessel ischemic disease. Calcified atherosclerosis of the bilateral cavernous and paraclinoid internal carotid arteries and intracranial vertebral arteries. No intra- or extra-axial mass or fluid collection. No acute hemorrhage. The ventricles are normal in size, shape, and morphology. The enriquez-white matter junction is normal. The subarachnoid cisterns are patent. The visualized paranasal sinuses are normal. The visualized portions of the orbits and globes are normal. The mastoid air cells are clear. The curtain framer topogram shows no lytic lesion or fracture. Impression: No acute intracranial process. Course & Med Decision Making: Course & Med Decision Making Pertinent Labs and Imaging studies reviewed. (See chart for details) [ED course: Evaluation reveals an 79-year-old male with some generalized weakness. Fortunately, his laboratory studies including an EKG and CT of the brain looked fantastic. I believe the patient can follow-up as an outpatient with his family physician.] Kaykay Disclaimer: Dragmadina Disclaimer: This electronic medical record was generated, in whole or in part, using a voice recognition dictation system. Departure Departure Impression: Primary Impression: Generalized weakness Disposition: 01 HOME, SELF-CARE Condition: STABLE Referrals: TRACY JONES MD (PCP) Patient Instructions: Weakness Additional Instructions: Return to the emergency department for any new or concerning symptoms. Follow with your primary care physician later this week for recheck. DELPHINE PADILLA DO March 17, 2020 20:03
[2020-03-17 20:08] VITALS: BP 162/91
--- NOTE | 2020-03-18 03:44 | EKG ---
[facility] [address] [place] [address] Test Date: 2020-03-17 Test Time: 18:22:22 Pat Name: LAURA SANCHEZ Department: Room: Gender: M Television Tube Inspector: : 1940 Requested By: DELPHINE PADILLA Order Number: [id number] Reading MD: Ricardo Madrid MD Measurements Intervals [place] Rate: 95 P: 49 MO: 226 QRS: 45 QRSD: 68 T: 111 QT: 344 QTc: 435 Interpretive Statements SINUS RHYTHM PROLONGED MO INTERVAL Electronically Signed On 03-18-2020 14:59:40 CDT by Ricardo Madrid MD
== END 2020-03-17 20:17 | disposition home or self-care (01) ==
LOC: ER 18:08
DX: R53.1 Weakness (principal); R05 Cough; R41.82 Altered mental status, unspecified; F17.210 Nicotine dependence, cigarettes, uncomplicated; E11.9 Type 2 diabetes mellitus without complications; E78.00 Pure hypercholesterolemia, unspecified; I10 Essential (primary) hypertension; Z86.73 Personal history of transient ischemic attack (TIA), and cerebral infarction without residual deficits
CPT/HCPCS: 36415; 70450; 80053; 81001; 83735; 83880; 84484; 85025; 93005; 99285-25

== ENCOUNTER 2020-04-19 18:42 | Emergency (ER) | payer MEDICARE ==
[~2020-04-19] VITALS: Ht 175.3 cm; Wt 85.0 kg
--- NOTE | 2020-04-19 19:20 | PHYS DOC ---
Past Medical History Past Medical History: Arthritis, Diabetes-Type II, High Cholesterol, Hype rtension, Prostatitis, TIA, Other Additional Past Medical Histor: enlarged prostate Past Surgical History: Other Additional Past Surgical Histo: cataract Left Smoking Status: Current Every Day Smoker Alcohol Use: Rarely Drug Use: None General Adult EDM: Chief Complaint: HEAD INJURY/TRAUMA HPI: HPI: Patient is a 79 year old male presents for evaluation of headache after head injury. Patient states he was sitting in a chair when the chair broke patient hit the back of his head on the fence. Patient denies any loss of consciousness. Patient has had no nausea or vomiting. Patient's pain is located in the frontal region. On exam patient is alert and oriented x4. Patient appears in no acute distress. Patient has soft tissue swelling right posterior scalp without open wounds. Review of Systems: Review of Systems: Constitutional: Denies fever or chills. [] Eyes: Denies change in visual acuity. [] HENT: Denies nasal congestion or sore throat. [] Respiratory: Denies cough or shortness of breath. [] Cardiovascular: Denies chest pain or edema. [] GI: Denies abdominal pain, nausea, vomiting, bloody stools or diarrhea. [] : Denies dysuria. [] Musculoskeletal: Denies back pain or joint pain. [] Integument: Denies rash. [positive swelling] Neurologic: Denies focal weakness or sensory changes. [positive headache] Endocrine: Denies polyuria or polydipsia. [] Lymphatic: Denies swollen glands. [] Psychiatric: Denies depression or anxiety. [] Heart Score: Risk Factors: Risk Factors: DM, Current or recent (<one month) smoker, HTN, HLP, family history of CAD, obesity. Risk Scores: Score 0 - 3: 2.5% MACE over next 6 weeks - Discharge Home Score 4 - 6: 20.3% MACE over next 6 weeks - Admit for Clinical Observation Score 7 - 10: 72.7% MACE over next 6 weeks - Early Invasive Strategies Allergies: Allergies: Allergies Coded Allergies Type Severity Reaction Last Updated Verified No Known Drug Allergies 12/15/16 No Physical Exam: PE: Constitutional: Well developed, well nourished, no acute distress, non-toxic appearance. [] HENT: Normocephalic, atraumatic, bilateral external ears normal, oropharynx moist, no oral exudates, nose normal. [] Eyes: PERRLA, EOMI, conjunctiva normal, no discharge. [] Neck: Normal range of motion, no tenderness, supple, no stridor. [] Cardiovascular:Heart rate regular rhythm, no murmur [] Lungs & Thorax: Bilateral breath sounds clear to auscultation [] Abdomen: Bowel sounds normal, soft, no tenderness, no masses, no pulsatile masses. [] Skin: Warm, dry, no erythema, no rash. [swelling right posterior scalp, no active bleeding, no open wounds] Back: No tenderness, no CVA tenderness. [] Extremities: No tenderness, no cyanosis, no clubbing, ROM intact, no edema. [] Neurologic: Alert and oriented X 3, normal motor function, normal sensory function, no focal deficits noted. [] Psychologic: Affect normal, judgement normal, mood normal. [] Current Patient Data: Vital Signs: Vital Signs Date Time Temp Pulse Resp B/P (MAP) Pulse Ox O2 Delivery O2 Flow Rate FiO2 04/19/20 18:50 98.1 95 205/92 (129) 97 Room Air 98.1 EKG: EKG: [] Radiology/Procedures: Radiology/Procedures: [] Course & Med Decision Making: Course & Med Decision Making Pertinent Labs and Imaging studies reviewed. (See chart for details) []CT Head and cervical spine negative for acute intracranial traumatic injury or bony fracture Patient will be discharged home with instructions to follow-up with primary care physician. Kaykay Disclaimer: Kaykay Disclaimer: This electronic medical record was generated, in whole or in part, using a voice recognition dictation system. Departure Departure Impression: Primary Impression: Head injury Additional Impression: Scalp contusion Disposition: 01 HOME, SELF-CARE Condition: STABLE Referrals: TRACY JONES MD (PCP) Patient Instructions: Head Injury, Adult Justicifation of Admission Dx: Justifications for Admission: Justification of Admission Dx: N/A LAURA MCCLELLAN DO Apr 19, 2020 19:20
--- NOTE | 2020-04-19 19:28 | RAD ---
Exam: CT head and cervical spine without contrast INDICATION: Head injury TECHNIQUE: Sequential axial images through the head and cervical spine were obtained without the administration of IV contrast. Comparisons: None FINDINGS: Head: No focal parenchymal lesion or hemorrhage is identified. There is no midline shift or sulcal effacement. No acute vascular territory infarction is identified. Amor-white distinction is preserved. The ventricular system is within normal limits without compression hydrocephalus. The basal cisterns are well maintained. Mild extra cranial soft tissue scalp contusion in the frontal midline region. The visualized portions of the paranasal sinuses and mastoid air cells are well-pneumatized. No acute fractures. Cervical spine: Vertebral body heights and alignment are well-maintained. Fracture to the cervical spine is not identified. Multilevel spondylotic change in cervical spine with degenerative disc disease greatest at C2-C3, C3-C4, C4-C5 and C5-C6. Visualized paraspinal soft tissues are unremarkable. IMPRESSION: 1. Mild extra cranial soft tissue scalp contusion in the frontal midline region without underlying osseous or intracranial abnormality identified. 2. Negative CT C-spine for acute traumatic injury. Exposure: One or more of the following in the visualized dose reduction techniques were utilized for this examination: 1. Automated exposure control 2. Adjustment of the MA and/or KV according to patient size Use of iterative of reconstructive technique Electronically signed by: Kami Fragoso MD (04/19/2020 7:25 PM) [id number]
[2020-04-19 19:43] VITALS: BP 149/75
== END 2020-04-19 19:52 | disposition home or self-care (01) ==
LOC: ER 18:42
DX: S00.03XA Contusion of scalp, initial encounter (principal); R51 Headache; R60.0 Localized edema; M19.90 Unspecified osteoarthritis, unspecified site; E11.9 Type 2 diabetes mellitus without complications; E78.00 Pure hypercholesterolemia, unspecified; I10 Essential (primary) hypertension; F17.200 Nicotine dependence, unspecified, uncomplicated; Z98.890 Other specified postprocedural states; Z86.73 Personal history of transient ischemic attack (TIA), and cerebral infarction without residual deficits; W22.03XA Walked into furniture, initial encounter; Y93.89 Activity, other specified; Y92.89 Other specified places as the place of occurrence of the external cause; Y99.8 Other external cause status
CPT/HCPCS: 70450; 72125; 99285

== ENCOUNTER 2020-08-27 17:44 | Emergency (ER) | payer MEDICARE ==
[~2020-08-27] VITALS: Ht 175.3 cm; Wt 85.0 kg
[2020-08-27] MEDS ORDERED: HYDROcodone/APAP 5/325MG 1 TAB TABLET PO ONE (18:30)
[2020-08-27] MEDS ORDERED: KETOROLAC 30 MG/ML VIAL. IM ONE (18:30)
--- NOTE | 2020-08-27 18:30 | PHYS DOC ---
Past Medical History Past Medical History: Arthritis, Diabetes-Type II, High Cholesterol, Hype rtension, Prostatitis, TIA, Other Additional Past Medical Histor: enlarged prostate Past Surgical History: Other Additional Past Surgical Histo: cataract Left Smoking Status: Current Every Day Smoker Alcohol Use: Rarely Drug Use: None General Adult EDM: Chief Complaint: LOWER BACK PAIN OR INJURY HPI: HPI: Patient is a 79 year old male who arrives with a chief complaint of low back pain. Patient describes of lumbar sacral back pain that does radiate to the left leg that is 8 out of 10 in severity. Pain is worse with laying down and certain movement. Pain is described as an ache. Patient denies any history of trauma. Patient has known arthritis of his back. Symptoms are going on for 1 week. Patient denies any urinary or bowel incontinence. Patient denies any hematuria or dysuria. Patient has any abdominal pain, nausea, vomiting, fever or diarrhea. Review of Systems: Review of Systems: Constitutional: Denies fever or chills. [] Eyes: Denies change in visual acuity. [] HENT: Denies nasal congestion or sore throat. [] Respiratory: Denies cough or shortness of breath. [] Cardiovascular: Denies chest pain or edema. [] GI: Denies abdominal pain, nausea, vomiting, bloody stools or diarrhea. [] : Denies dysuria. [] Musculoskeletal: Complains of low back pain but no joint pain Integument: Denies rash. [] Neurologic: Denies headache, focal weakness or sensory changes. [] Endocrine: Denies polyuria or polydipsia. [] Lymphatic: Denies swollen glands. [] Psychiatric: Denies depression or anxiety. [] Heart Score: Risk Factors: Risk Factors: DM, Current or recent (<one month) smoker, HTN, HLP, family history of CAD, obesity. Risk Scores: Score 0 - 3: 2.5% MACE over next 6 weeks - Discharge Home Score 4 - 6: 20.3% MACE over next 6 weeks - Admit for Clinical Observation Score 7 - 10: 72.7% MACE over next 6 weeks - Early Invasive Strategies Current Medications: Current Medications Medications (Trade) Dose Ordered Sig/Scotty Start Time Stop Time Status Last Admin Dose Admin Acetaminophen/ Hydrocodone Bitart (Lortab 5/325) 1 tab 1X ONCE 08/27/20 18:30 08/27/20 18:31 Ketorolac Tromethamine (Toradol 30mg Vial) 30 mg 1X ONCE 08/27/20 18:30 08/27/20 18:31 Allergies: Allergies: Allergies Coded Allergies Type Severity Reaction Last Updated Verified No Known Drug Allergies 12/15/16 No Physical Exam: PE: Constitutional: Well developed, well nourished, no acute distress, non-toxic appearance. [] HENT: Normocephalic, atraumatic, bilateral external ears normal, no trismus nose normal. [] Eyes: PERRLA, EOMI, conjunctiva normal, no discharge. [] Neck: Normal range of motion, no tenderness, supple, no stridor. [] Cardiovascular:Heart rate regular rhythm, no murmur [] Lungs & Thorax: Bilateral breath sounds clear, no respiratory distress Abdomen: soft, no tenderness, no masses, no pulsatile masses. [] Skin: Warm, dry, no erythema, no rash. [] Back: Tender to palpate in the left lumbar area Extremities: No tenderness, no cyanosis, no clubbing, ROM intact, no edema. [] Neurologic: Alert and oriented X 3, normal motor function, normal sensory funct ion, no focal deficits noted. [] Dorsiflexion to the great toes intact bilateral lower extremities, no saddle anesthesia. Psychologic: Affect normal, judgement normal, mood normal. [] Current Patient Data: Labs: Laboratory Tests Test 08/27/20 20:18 Urine Collection Type Unknown Urine Color Yellow Urine Clarity Clear Urine pH 5.5 Urine Specific [place] 1.020 Urine Protein Negative mg/dL Urine Glucose (UA) Negative mg/dL Urine Ketones (Stick) Negative mg/dL Urine Blood Negative Urine Nitrite Negative Urine Bilirubin Negative Urine Urobilinogen Dipstick 0.2 mg/dL Urine Leukocyte Esterase Small Urine RBC 0 /HPF Urine WBC Occ /HPF Urine Bacteria 0 /HPF Urine Mucus Slight /LPF Current Medications Medications (Trade) Dose Ordered Sig/Scotty Route PRN Reason Start Time Stop Time Status Last Admin Dose Admin Acetaminophen/ Hydrocodone Bitart (Lortab 5/325) 1 tab 1X ONCE PO 08/27/20 18:30 08/27/20 18:31 DC 08/27/20 18:47 Ketorolac Tromethamine (Toradol 30mg Vial) 30 mg 1X ONCE IM 08/27/20 18:30 08/27/20 18:31 DC 08/27/20 18:48 Vital Signs: Vital Signs Date Time Temp Pulse Resp B/P (MAP) Pulse Ox O2 Delivery O2 Flow Rate FiO2 08/27/20 20:32 53 164/80 (108) 98 Room Air 08/27/20 20:02 54 156/82 (106) 98 Room Air 08/27/20 19:32 56 167/84 (111) 98 Room Air 08/27/20 19:02 57 163/81 (108) 96 Room Air 08/27/20 18:47 20 99 Room Air 08/27/20 18:42 55 189/94 (125) 97 Room Air 08/27/20 17:58 99.0 62 18 191/102 (131) 97 Room Air 99.0 EKG: EKG: [] Radiology/Procedures: Radiology/Procedures: [][facility] [address] [place] [address] IMAGING REPORT Signed PATIENT: LAURA SANCHEZ ACCOUNT: [id number] : 1940 LOCATION: ER AGE: 79 SEX: M EXAM STATUS: REG ER ORD. PHYSICIAN: RASHEEDA GARZA MD REASON: low back pain PROCEDURE: CT LUMBAR SPINE WO CONTRAST Examination: CT lumbar spine without contrast HISTORY: History of low back pain COMPARISON: 12/18/2016 TECHNIQUE: Axial CT images of the lumbar spine was performed contrast. Cholecystectomy, so performed Exposure: One or more of the following individualized dose reduction techniques were utilized for this examination: 1. Automated exposure control 2. Adjustment of the mA and/or kV according to patient size 3. Use of iterative reconstruction technique FINDINGS: The lumbar vertebral body heights are maintained. Inferior endplate Schmorl's node identified at L2, L3, L4 vertebral levels. Superior endplate Schmorl's right-sided L4, L5 vertebral levels. Moderate anterior osteophyte formation identified in the lumbar spine most at L5-S1 vertebral level. There is moderate intervertebral disc height loss identified at L4-L5 vertebral level. There is mild intervertebral disc height loss identified at L1-L2, L2-L3, L3-L4 and L5-S1 vertebral level. Moderate spinal canal stenosis identified at L4-L5 vertebral level.Partially visualized small hyperdense cyst right kidney and partially visualized cyst identified in the left kidney similar to prior exam. IMPRESSION: 1.Multilevel degenerative changes lumbar spine most at L4-L5 vertebral level with moderate spinal canal stenosis at L4-L5 vertebral level. If pain persists follow-up MRI can be considered. 2. Multiple Schmorl's nodes as described above. Electronically signed by: Ever Casas MD (08/27/2020 6:58 PM) [id number] DICTATED and SIGNED BY: EVER CASAS MD DATE: 08/27/20 1858 Course & Med Decision Making: Course & Med Decision Making Pertinent Labs and Imaging studies reviewed. (See chart for details) [] Patient reassessed at 8:10 PM and is clinically improved. CT shows some degenerative disc disease with arthritis/L4-L5. Patient has no evidence of cauda equina. There is no saddle anesthesia dorsiflexion is intact of bilateral lower extremities. Dragon Disclaimer: Dragon Disclaimer: This electronic medical record was generated, in whole or in part, using a voice recognition dictation system. Departure Departure Impression: Primary Impression: Lumbar back pain Additional Impression: Spinal stenosis Disposition: 01 DC HOME SELF CARE/HOMELESS Condition: STABLE Referrals: MAIKEL CARTER MD (PCP) CALLY MEHTA MD 2-3 DAYS Patient Instructions: Back Pain, Adult, Spinal Stenosis Additional Instructions: EMERGENCY DEPARTMENT GENERAL DISCHARGE INSTRUCTIONS THANK YOU for coming to [facility] Emergency Department (ED) today and trusting us with your care. We trust that you had a positive experience in our Emergency Department. If you wish to speak to the department Management you can contact the making department preparer at . YOUR FOLLOW UP INSTRUCTIONS ARE FOLLOWS: Do you have a private doctor? If you do not have a private doctor, please ask for a resource list of physicians or clinics that may be able to assist you with follow up care. The Emergency Physician has interpreted your x-rays. The X-ray specialist will also review them. If there is a change in the findings you will be notified in 48 hours when at all possible. A lab test or lab culture may have been done, your results will be reviewed and you will be notified if you need a change in treatment. ADDITIONAL INSTRUCTIONS AND INFORMATION Your care today has been supervised by a physician who is specially trained in emergency care. Many problems require more than one evaluation for a complete diagnosis and treatment. We recommend that you schedule your follow up appointment as recommended to ensure complete treatment of your illness or injury. If you are unable to obtain follow up care and continue to have a problem, or if your condition worsens we recommend that you return to the ED. We are not able to safely determine your condition over the phone nor are we able to give sound medical advice over the phone. For these safety reasons, if you call for medical advice we will ask you to come to the ED for further evaluation If you have any questions regarding these discharge instructions please call the ED at . SAFETY INFORMATION In the interest of safety, wellness, and injury prevention; we encourage you to wear your seatbelt, if you smoke; quit smoking, and we encourage your family to use protective helmet for bicycling and other sporting events that present an increased risk for head injury. IF YOUR SYMPTOMS WORSEN OR NEW SYMPTOMS DEVELOP, OR YOU HAVE CONCERNS ABOUT YOUR CONDITION; OR IF YOUR CONDITION WORSENS WHILE YOU ARE WAITING FOR YOUR FOLLOW UP APPOINTMENT; EITHER CONTACT YOUR PRIMARY CARE DOCTOR, THE PHYSICIAN WHOSE NAME AND NUMBER YOU WERE GIVEN, OR RETURN TO THE ED IMMEDIATELY. Scripts Hydrocodone/Apap 5-325 (NORCO 5-325 TABLET) 1 Each Tablet 1-2 EACH PO PRN Q6HRS PRN for PAIN, #15 as needed for pain Prov: RASHEEDA GARZA MD 08/27/20 RASHEEDA GARZA MD Aug 27, 2020 18:30
--- NOTE | 2020-08-27 19:01 | RAD ---
Examination: CT lumbar spine without contrast HISTORY: History of low back pain COMPARISON: 12/18/2016 TECHNIQUE: Axial CT images of the lumbar spine was performed contrast. Cholecystectomy, so performed Exposure: One or more of the following individualized dose reduction techniques were utilized for this examination: 1. Automated exposure control 2. Adjustment of the mA and/or kV according to patient size 3. Use of iterative reconstruction technique FINDINGS: The lumbar vertebral body heights are maintained. Inferior endplate Schmorl's node identified at L2, L3, L4 vertebral levels. Superior endplate Schmorl's right-sided L4, L5 vertebral levels. Moderate anterior osteophyte formation identified in the lumbar spine most at L5-S1 vertebral level. There is moderate intervertebral disc height loss identified at L4-L5 vertebral level. There is mild intervertebral disc height loss identified at L1-L2, L2-L3, L3-L4 and L5-S1 vertebral level. Moderate spinal canal stenosis identified at L4-L5 vertebral level.Partially visualized small hyperdense cyst right kidney and partially visualized cyst identified in the left kidney similar to prior exam. IMPRESSION: 1.Multilevel degenerative changes lumbar spine most at L4-L5 vertebral level with moderate spinal canal stenosis at L4-L5 vertebral level. If pain persists follow-up MRI can be considered. 2. Multiple Schmorl's nodes as described above. Electronically signed by: Ever Casas MD (08/27/2020 6:58 PM) [id number]
[2020-08-27] MEDS ORDERED: HYDR-3164 PO (20:21)
[2020-08-27 20:32] VITALS: BP 164/80
[2020-08-27 20:34] LABS: BILIRUBIN,URINE NEGATIVE (NEG); CLARITY,URINE CLEAR; COLOR,URINE YELLOW; NITRITE,URINE NEGATIVE (NEG); PH,URINE 5.5 (<5.0-8.0); PROTEIN,URINE NEGATIVE (NEG-TRACE); UROBILINOGEN,URINE 0.2 mg/dL (0.2 mg/dL)
[2020-08-27 20:38] LABS: BACTERIA,URINE 0 /HPF (0-FEW); RBC,URINE 0 /HPF (0-2); WBC,URINE OCC /HPF (0-4)
== END 2020-08-27 20:58 | disposition home or self-care (01) ==
LOC: ER 17:44
DX: M48.061 Spinal stenosis, lumbar region without neurogenic claudication (principal); E11.9 Type 2 diabetes mellitus without complications; E78.00 Pure hypercholesterolemia, unspecified; I10 Essential (primary) hypertension; F17.200 Nicotine dependence, unspecified, uncomplicated; Z86.73 Personal history of transient ischemic attack (TIA), and cerebral infarction without residual deficits
CPT/HCPCS: 72131; 81001; 87086; 96372; 99285; J1885

== ENCOUNTER 2021-01-24 14:03 | Emergency (ER) | payer MEDICARE ==
[~2021-01-24] VITALS: Ht 175.3 cm; Wt 82.0 kg
[2021-01-24 14:22] VITALS: BP 154/81
--- NOTE | 2021-01-24 15:04 | ED.ADGEN ---
Past Medical History Past Medical History: Arthritis, Diabetes-Type II, High Cholesterol, Hype rtension, Prostatitis, TIA, Other Additional Past Medical Histor: enlarged prostate Past Surgical History: Other Additional Past Surgical Histo: cataract Left Smoking Status: Current Every Day Smoker Alcohol Use: Rarely Drug Use: None General Adult EDM: Chief Complaint: UPPER EXTREMITY PAIN HPI: HPI: Patient is a 80 year old AA male who presents emergency department with complaints of left elbow pain and swelling for the last 3 days. Patient states that the lateral aspect of his left elbow feels warm and is very tender to touch. He denies any known injury. Patient reports concerns that something bit him but he denies any bleeding, discharge, or itching at the site. He denies any fever, body aches, chills, chest pain, shortness of breath, abdominal pain, nausea, vomiting, diarrhea, numbness, tingling, or weakness. He currently rates his pain a 9 out of 10 on pain scale. Patient denies any alleviating factors, the pain is worse with movement of his left elbow and palpation of the left elbow. Review of Systems: Review of Systems: Complete ROS is negative unless otherwise noted in HPI. Allergies: Allergies: Allergies Coded Allergies Type Severity Reaction Last Updated Verified No Known Drug Allergies 12/15/16 No Physical Exam: PE: See Above Constitutional: Well developed, well nourished, no acute distress, non-toxic appearance. [] HENT: Normocephalic, atraumatic, bilateral external ears normal, nose normal. [] Eyes: PERRLA, EOMI, conjunctiva normal, no discharge. [] Neck: Normal range of motion, no stridor. [] Cardiovascular:Heart rate regular rhythm Lungs & Thorax: Respirations even and unlabored, no retractions, no respiratory distress Skin: Warm, dry, no rash; erythema and warmth over the posterior and lateral aspect of the left elbow, no punctum, no visible abscess, 2+ edema [] Extremities: LUE: Tenderness to palpation over the posterior elbow, no obvious deformity, no crepitus, no cyanosis, ROM due to pain, 2+ edema posteriorly Neurologic: Alert and oriented X 3, normal sensory, normal motor, no focal deficits noted. [] Psychologic: Affect normal, judgement normal, mood normal. [] Current Patient Data: Vital Signs: Vital Signs Date Time Temp Pulse Resp B/P (MAP) Pulse Ox O2 Delivery O2 Flow Rate FiO2 01/24/21 14:22 98.1 68 18 154/81 (105) 97 Room Air 98.1 EKG: EKG: [] Heart Score: C/O Chest Pain: No Risk Scores: Score 0 - 3: 2.5% MACE over next 6 weeks - Discharge Home Score 4 - 6: 20.3% MACE over next 6 weeks - Admit for Clinical Observation Score 7 - 10: 72.7% MACE over next 6 weeks - Early Invasive Strategies Radiology/Procedures: Radiology/Procedures: [] Course & Med Decision Making: Course & Med Decision Making Pertinent Labs and Imaging studies reviewed. (See chart for details) [id number] spoke with Dr. Marino about this patient and his presentation. Advised him of the normal vital signs, patient denies any fever, I have a low suspicion for septic arthritis. I will place the patient in Phill wrap and prescribe daily meloxicam. We will have the patient follow-up with Dr. Marino for further evaluation of his left elbow pain. Prescription written for meloxicam patient placed in Phill bandage. I encouraged him to follow-up with orthopedic doctor provided. Instructed him to return to the ER if his symptoms worsened or fever develop. Patient verbalized an understanding of home care, medications, follow-up, and return to ED instructions and was in agreement with the plan of care. [] Kaykay Disclaimer: Dragmadina Disclaimer: This electronic medical record was generated, in whole or in part, using a voice recognition dictation system. Departure Departure Impression: Primary Impression: Olecranon bursitis, left elbow Disposition: 01 DC HOME SELF CARE/HOMELESS Condition: STABLE Referrals: MAIKEL CARTER MD (PCP) TRACY MARINO DO Patient Instructions: Olecranon Bursitis, [id number] Additional Instructions: Fill prescription(s) and use as directed. Recommend application of ice, elevation, and rest of affected extremity. Wear the Phill wrap that was placed until follow up appointment with Dr. Marino, call this afternoon to schedule your appointment. Return to the ER if your symptoms worsen or if fever develops.. Scripts Meloxicam (MELOXICAM) 15 Mg Tablet 1 TAB PO DAILY for 10 Days, #10 TAB 0 Refills Prov: ALBA ESCOBAR APRN 01/24/21 ALBA ESCOBAR APRN Jan 24, 2021 15:04
[2021-01-24] MEDS ORDERED: MELO15TA23 PO (15:18)
== END 2021-01-24 15:45 | disposition home or self-care (01) ==
LOC: ER 14:03
DX: M70.22 Olecranon bursitis, left elbow (principal); R60.0 Localized edema; M19.90 Unspecified osteoarthritis, unspecified site; E11.9 Type 2 diabetes mellitus without complications; E78.00 Pure hypercholesterolemia, unspecified; I10 Essential (primary) hypertension; F17.200 Nicotine dependence, unspecified, uncomplicated; Z98.890 Other specified postprocedural states
CPT/HCPCS: 99281

== ENCOUNTER 2021-07-04 10:57 | Emergency (ER) | payer MEDICARE ==
[~2021-07-04] VITALS: Ht 175.3 cm; Wt 77.2 kg
[~2021-07-04 10:57] MED LIST changes: -DOXY100C2 PO; +DOXY100C3 PO
[2021-07-04 12:40] VITALS: BP 192/91
--- NOTE | 2021-07-04 13:17 | RAD ---
XR CHEST 1V CLINICAL INDICATIONS: Reason: cough / Spl. Instructions: / History: COMPARISON: January 31, 2020. Findings: No acute lung infiltrate or pleural effusion or pulmonary edema or lung mass or pneumothora x is seen. The heart size, pulmonary vasculature, mediastinum and both naa are unremarkable. IMPRESSION: No acute radiographic abnormality is seen. Electronically signed by: Keny Canela MD (07/04/2021 1:15 PM) [id number]
[2021-07-04] MEDS ORDERED: BENZ100C PO (13:26)
--- NOTE | 2021-07-04 13:26 | PHYS DOC ---
Past Medical History Past Medical History: Arthritis, Diabetes-Type II, High Cholesterol, Hype rtension, Prostatitis, TIA, Other Additional Past Medical Histor: enlarged prostate Past Surgical History: Other Additional Past Surgical Histo: cataract Left Smoking Status: Current Every Day Smoker Alcohol Use: Rarely Drug Use: None General Adult EDM: Chief Complaint: COUGH HPI: HPI: 80-year-old male past medical history of diabetes, hypertension on lisinopril, hyperlipidemia and prostate issues, presents to the ED with complaints of nonproductive cough for the past 3 to 4 days stating " I am only here because my made me." Reports Covid vaccine is up-to-date. Denies associated fever chills, anorexia, lack of taste or smell, nausea, vomiting, diarrhea, chest pain, hemoptysis, leg swelling, dyspnea or increased work of breathing. Review of Systems: Review of Systems: Constitutional: Denies fever or chills. [] Eyes: Denies change in visual acuity. [] HENT: Denies nasal congestion or sore throat. [] Respiratory: Denies hemoptysis or shortness of breath. [] Cardiovascular: Denies chest pain or edema. [] GI: Denies abdominal pain, nausea, vomiting, bloody stools or diarrhea. [] : Denies dysuria or hematuria Musculoskeletal: Denies back pain or joint pain. [] Integument: Denies rash or diaphoresis Neurologic: Denies headache, focal weakness or sensory changes. [] Endocrine: Denies polyuria or polydipsia. [] Lymphatic: Denies swollen glands. [] Psychiatric: Denies depression or anxiety. [] Heart Score: C/O Chest Pain: No Risk Factors: Risk Factors: DM, Current or recent (<one month) smoker, HTN, HLP, family history of CAD, obesity. Risk Scores: Score 0 - 3: 2.5% MACE over next 6 weeks - Discharge Home Score 4 - 6: 20.3% MACE over next 6 weeks - Admit for Clinical Observation Score 7 - 10: 72.7% MACE over next 6 weeks - Early Invasive Strategies Allergies: Allergies: Allergies Coded Allergies Type Severity Reaction Last Updated Verified No Known Drug Allergies 12/15/16 No Physical Exam: PE: Constitutional: Well developed, well nourished, no acute distress, non-toxic appearance. HENT: Normocephalic, atraumatic, Eyes: EOMI, conjunctiva normal, no discharge. Neck: Normal range of motion, supple, Cardiovascular: S1/2 present, regular rhythm Lungs & Thorax: Speaking in full sentences, bilateral equal chest rise, no tachypnea or increased work of breathing, 1 dry cough witnessed in ed Abdomen: soft, no tenderness, Skin: Warm, dry, no erythema, no rash. [] Back: No tenderness, no CVA tenderness. [] Extremities: No tenderness, no cyanosis, no lower extremity edema Neurologic: Alert and oriented X 3, normal motor function, normal sensory function, no focal deficits noted. [] Psychologic: Affect normal, judgement normal, mood normal. [] Current Patient Data: Labs: Laboratory Tests Test 07/04/21 12:55 SARS-CoV-2 Antigen (Rapid) Negative (NEGATIVE) Vital Signs: Vital Signs Date Time Temp Pulse Resp B/P (MAP) Pulse Ox O2 Delivery O2 Flow Rate FiO2 07/04/21 12:40 97.7 66 20 192/91 (124) 96 Room Air 97.7 EKG: EKG: [] Radiology/Procedures: Radiology/Procedures: []IMAGING REPORT Signed PATIENT: LAURA SANCHEZ ACCOUNT: [id number] : 1940 LOCATION: ER AGE: 80 SEX: M EXAM STATUS: REG ER ORD. PHYSICIAN: HOLDEN RICKS DO REASON: cough PROCEDURE: CHEST AP ONLY XR CHEST 1V CLINICAL INDICATIONS: Reason: cough / Spl. Instructions: / History: COMPARISON: January 31, 2020. Findings: No acute lung infiltrate or pleural effusion or pulmonary edema or lung mass or pneumothorax is seen. The heart size, pulmonary vasculature, mediastinum and both naa are unremarkable. IMPRESSION: No acute radiographic abnormality is seen. Electronically signed by: Elaine Canela MD (07/04/2021 1:15 PM) [id number] DICTATED and SIGNED BY: ELAINE CANELA MD DATE: 07/04/21 [id number] 0 Course & Med Decision Making: Course & Med Decision Making Pertinent Labs and Imaging studies reviewed. (See chart for details) Concern acute dry cough for the past 3 to 4 days with no other URI symptoms or Covid symptoms. Rapid Covid test negative. Chest x-ray unremarkable for no acute process. Patient also with asymptomatic hypertension, denies any chest pain, shortness of breath and is not confused. Will discharge home with strict ED return precautions were given for fever, chest pain, increased work of breathing or hemoptysis. Encouraged urgent outpatient follow-up with PMD for reevaluation, consider LINDSAY inhibitor induced cough. Life-threatening processes were considered but are low suspicion at this time, given history, physical exam and ED workup. Pt was educated on all prescription medications and adverse effects. All patient's questions were answered and pt was stable at time of discharge. Life/limb-threatening differential includes but is not limited to, foreign body, infection/sepsis, congestive heart failure or pulmonary edema, lung cancer intrathoracic mass, bronchoconstriction, asthma/COPD/lung disease exacerbation, pneumothorax or hemothorax, pulmonary emboli, autoimmune/neurologic disease or toxidrome. I have spoken with the patient and/or caregivers. I explained the patient's condition, diagnoses and treatment plan based on the information available to me at this time. I have answered the patient and/or caregiver's questions and addressed any concerns. The patient and/or caregivers have a good understanding of patient's diagnosis, condition and treatment plan as can be expected at this point. Vital signs have been stable. Patient's condition is stable and appropriate for discharge from the emergency department. Patient will pursue further outpatient evaluation with primary care physician or other designated or consulting physician as outlined in the discharge instructions. The patient and/or caregivers are agreeable to this plan of care and follow-up instructions have been explained in detail. The patient and/or caregivers have received these instructions in written form and have expressed an understanding of the discharge instructions. The patient and/or caregivers are aware that any significant change of condition or worsening of symptoms should prompt immediate return to this or the closest emergency department or call to 911. Kaykay Disclaimer: Kaykay Disclaimer: This electronic medical record was generated, in whole or in part, using a voice recognition dictation system. Departure Departure Impression: Primary Impression: Cough Additional Impression: Uncontrolled hypertension Disposition: HOME / SELF CARE / HOMELESS Condition: STABLE Referrals: UNKNOWN PCP NAME (PCP) Follow-up with your primary care physician in 24 to 48 hours OR for your cough FOLLOW UP WITH FAMILY MEDICINE: [address] [facility] [address] [place] [address] Patient Instructions: Cough, Adult Additional Instructions: EMERGENCY DEPARTMENT GENERAL DISCHARGE INSTRUCTIONS Thank you for coming to [facility] Emergency Department (ED) today and trusting us with you care. We trust that you had a positive experience in our Emergency Department. If you wish to speak to the department management, you may call the Director at [phone]. YOUR FOLLOW UP INSTRUCTIONS ARE FOLLOWS: 1. Do you have a private Doctor? If you do not have a private doctor, please ask for a resource list of physicians or clinics that may be able to assist you with follow up care. 2. The Emergency Physicain has interpreted your x-rays. The X-Ray specialist will also review them. If there is a change in the findings, you will be notified in 48 hours when at all possible. 3. A lab test or culture has been done, your results will be reviewed and you will be notified if you need a change in treatment. ADDITIONAL INSTRUCTIONS AND INFORMATION: 1. Your care today has been supervised by a physician who is specially trained in emergency care. Many problems require more than one evaluation for a complete diagnosis and treatment. We recommend that you schedule your follow up appointment as recommended to ensure complete treatment of you illness or injury. If you are unable to obtain follow up care and continue to have a problem, or if your condition worsens, we recommend that you return to the ED. 2. We are not able to safely determine your condition over the phone nor are we able to give sound medical advice over the phone. For these safety reasons, if you call for medical advice we will ask you to come to the ED for further evaluation. 3. If you have any questions regarding these discharge instructions please call the ED at [phone]. SAFETY INFORMATION: In the interest of safety, wellness, and injury prevention; we encourage you to wear your sealbelt, if you smoke; quite smoking, and we encourage family to use a protective helmet for bicycling and other sporting events that present an increased risk for head injury. IF YOUR SYMPTOMS WORSEN OR NEW SYMPTOMS DEVELOP, OR YOU HAVE CONCERNS ABOUT YOUR CONDITION; OR IF YOUR CONDITION WORSENS WHILE YOU ARE WAITING FOR YOUR FOLLOW UP APPOINTM ENT; EITHER CONTACT YOUR PRIMARY CARE DOCTOR, THE PHYSICIAN WHOSE NAME AND NUMBER YOU WERE GIVEN, OR RETURN TO THE ED IMMEDIATELY. Scripts Benzonatate (TESSALON PERLE) 100 Mg Capsule 1 CAP PO TID for cough for 7 Days, #21 CAP Prov: HOLDEN RICKS DO 07/04/21 HOLDEN RICKS DO Jul 04, 2021 13:26
--- NOTE | 2021-07-05 18:03 | NUR ---
IP: Informed pt of negative covid test. Pt verbalized understanding.
== END 2021-07-04 13:52 | disposition home or self-care (01) ==
LOC: ER 10:57
DX: R05 Cough (principal); Z20.822 Contact with and (suspected) exposure to COVID-19; I10 Essential (primary) hypertension; E11.9 Type 2 diabetes mellitus without complications; E78.00 Pure hypercholesterolemia, unspecified; Z86.73 Personal history of transient ischemic attack (TIA), and cerebral infarction without residual deficits; F17.200 Nicotine dependence, unspecified, uncomplicated
CPT/HCPCS: 71045; 87426; 99283; U0003; U0005

== ENCOUNTER 2021-10-24 10:21 | Emergency (ER) | payer MEDICARE ==
[~2021-10-24] VITALS: Ht 175.3 cm; Wt 84.5 kg
[~2021-10-24 10:21] MED LIST changes: +CYCL10TA19 PO; -CYCL10TA2 PO
[2021-10-24 13:02] LABS: BASO % 1 % (0-3); EOS % 0 % (0-3); HEMATOCRIT 44.7 % (39.0-53.0); HEMOGLOBIN 14.6 g/dL (13.0-17.5); LYMPH # 1.4 x10^3/uL (1.0-4.8); LYMPH % 35 % (24-48); MEAN CORPUSCULAR HEMOGLOBIN 31 pg (25-35); MEAN CORPUSCULAR HGB CONC 33 g/dL (31-37); MEAN CORPUSCULAR VOLUME 94 fL (79-100); MONO # 0.4 x10^3/uL (0.0-1.1); MONO % 10 % (0-9); NEUT # 2.2 x10^3/uL (1.8-7.7); NEUT % 53 % (31-73); PLATELET COUNT 203 x10^3/uL (140-400); RED BLOOD COUNT 4.75 x10^6/uL (4.30-5.70); WHITE BLOOD COUNT 4.1 x10^3/uL (4.0-11.0)
[2021-10-24 13:26] LABS: CALCIUM 8.9 mg/dL (8.5-10.1); CREATININE 1.6 mg/dL (0.7-1.3); GFR 50.3; POTASSIUM 4.4 mmol/L (3.5-5.1)
[2021-10-24 13:30] LABS: MAGNESIUM 2.2 mg/dL (1.8-2.4)
--- NOTE | 2021-10-24 13:31 | PHYS DOC ---
Past Medical History Past Medical History: Arthritis, Diabetes-Type II, High Cholesterol, Hypertension, Prostatitis, TIA, Other Additional Past Medical Histor: enlarged prostate Past Surgical History: Other Additional Past Surgical Histo: cataract Left Smoking Status: Current Every Day Smoker Alcohol Use: Rarely Drug Use: None General Adult EDM: Chief Complaint: MECHANICAL FALL HPI: HPI: Patient is a 80 year old male who presents with states less right he was having tremors and so he went to lay down. He states is not normal for him. States that at some point he fell out of the bed and hit the back of his head on the dresser. He states he thinks he passed out. States he does not remember. He states he has a bit of a headache to the back of his head at 5 out of 10. He denies any blood thinners, dizziness, chest pain, shortness of air, numbness or tingling, back pain, alphonso pain, nausea, vomiting, vision change. Patient has a history of hypertension, high cholesterol, BPH, smoking, diabetes, TIA, prostatitis, left cataract, arthritis. Review of Systems: Review of Systems: Constitutional: Denies fever or chills. [] Eyes: Denies change in visual acuity. [] HENT: Denies nasal congestion or sore throat. [] Respiratory: Denies cough or shortness of breath. [] Cardiovascular: Denies chest pain or edema. [] GI: Denies abdominal pain, nausea, vomiting, bloody stools or diarrhea. [] : Denies dysuria. [] Musculoskeletal: Denies back pain or joint pain. + Neck pain [] Integument: Denies rash. + Tenderness to the back of the head [] Neurologic: + headache, focal weakness or sensory changes. + Possible syncope [] Endocrine: Denies polyuria or polydipsia. [] Lymphatic: Denies swollen glands. [] Psychiatric: Denies depression or anxiety. [] Heart Score: C/O Chest Pain: No Allergies: Allergies: Allergies Coded Allergies Type Severity Reaction Last Updated Verified No Known Drug Allergies 12/15/16 No Physical Exam: PE: Constitutional: Well developed, well nourished, no acute distress, non-toxic appearance. [] HENT: Normocephalic, atraumatic, bilateral external ears normal, oropharynx moist, no oral exudates, nose normal. [] Eyes: PERRLA, EOMI, conjunctiva normal, no discharge. [] Neck: Normal range of motion, no tenderness, supple, no stridor. [] Cardiovascular:Heart rate regular rhythm, no murmur [] Lungs & Thorax: Bilateral breath sounds clear to auscultation [] Abdomen: Bowel sounds normal, soft, no tenderness, no masses, no pulsatile masses. [] Skin: Warm, dry, no erythema, no rash. Tenderness to the back of the head but no swelling, bruising, laceration, abrasion [] Back: No tenderness, no CVA tenderness. [] Extremities: No tenderness, no cyanosis, no clubbing, ROM intact, no edema. [] Neurologic: Alert and oriented X 3, normal motor function, normal sensory function, no focal deficits noted. [] Psychologic: Affect normal, judgement normal, mood normal. [] Current Patient Data: Labs: Laboratory Tests Test 10/24/21 12:53 White Blood Count 4.1 x10^3/uL (4.0-11.0) Red Blood Count 4.75 x10^6/uL (4.30-5.70) Hemoglobin 14.6 g/dL (13.0-17.5) Hematocrit 44.7 % (39.0-53.0) Mean Corpuscular Volume 94 fL (79-100) Mean Corpuscular Hemoglobin 31 pg (25-35) Mean Corpuscular Hemoglobin Concent 33 g/dL (31-37) Red Cell Distribution Width 14.0 % (11.5-14.5) Platelet Count 203 x10^3/uL (140-400) Neutrophils (%) (Auto) 53 % (31-73) Lymphocytes (%) (Auto) 35 % (24-48) Monocytes (%) (Auto) 10 % (0-9) H Eosinophils (%) (Auto) 0 % (0-3) Basophils (%) (Auto) 1 % (0-3) Neutrophils # (Auto) 2.2 x10^3/uL (1.8-7.7) Lymphocytes # (Auto) 1.4 x10^3/uL (1.0-4.8) Monocytes # (Auto) 0.4 x10^3/uL (0.0-1.1) Eosinophils # (Auto) 0.0 x10^3/uL (0.0-0.7) Basophils # (Auto) 0.0 x10^3/uL (0.0-0.2) Laboratory Tests 10/24/21 12:53 Vital Signs: Vital Signs Date Time Temp Pulse Resp B/P (MAP) Pulse Ox O2 Delivery O2 Flow Rate FiO2 10/24/21 11:08 98.2 63 12 180/100 (126) 98 Room Air 98.2 EKG: EK and read by Dr. Canseco is sinus rhythm and no STEMI Radiology/Procedures: Radiology/Procedures: [] Impression: [facility] [address] [place] [address] IMAGING REPORT Signed PATIENT: LAURA SANCHEZ ACCOUNT: [id number] : 1940 LOCATION: ER AGE: 80 SEX: M EXAM STATUS: REG ER ORD. PHYSICIAN: RAKESH REES APRN REASON: hit back of head, syncope PROCEDURE: CT HEAD AND CERVICAL SPINE WO Exam Date: 10/24/2021 12:[address] HEAD AND C-SPINE WO Indication: Reason: hit back of head, syncope / Spl. Instructions: / History: . One or more of the following dose reduction techniques were utilized: *Automated exposure control (AEC) *Adjustment of mA and/or kV according to patient size *Use of iterative reconstruction technique *CT scan done according to ALARA, or ALARA/IMAGE GENTLY EXAMINATION: CT OF THE HEAD WITHOUT CONTRAST INDICATION: Trauma, head injury, headache; TECHNIQUE: Noncontrast helical axial CT images of the head were obtained. COMPARISON: April 19, 2020 FINDINGS: The ventricles and sulci are prominent consistent with cerebral volume loss. Patchy ill-defined low attenuation areas in the subcortical and periventricular white matter bilaterally are consistent with microvascular disease. There is no evidence of acute intracranial hemorrhage, extra-axial collection, mass effect, midline shift, or acute territorial infarct. No lesion of the skull base or the calvarium is seen. The visualized paranasal sinuses, mastoid air cells, and orbits are normal in appearance. IMPRESSION: No evidence for acute intracranial abnormality. Volume loss and microvascular disease. EXAMINATION: CT OF THE CERVICAL SPINE WITHOUT CONTRAST Clinical Indication: Cervical spine pain after trauma Technique: Thin cut helical axial CT images through the cervical spine were obtained without contrast on a multi-detector CT scanner. Source data was then reconstructed into sagittal and coronal planes. Findings: Alignment is maintained without spondylolisthesis. Vertebral body heights are maintained without acute fracture. Moderate multilevel degenerative changes are noted. No significant prevertebral soft tissue swelling is demonstrated. No severe osseous central canal stenosis is seen. Impression: No evidence of acute cervical spine fracture or subluxation. Electronically signed by: Laron Becerra MD (10/24/2021 1:57 PM) [id number] DICTATED and SIGNED BY: LARON BECERRA MD DATE: 10/24/21 [id number] [facility] [address] [place] [address] IMAGING REPORT Signed PATIENT: LAURA SANCHEZ ACCOUNT: [id number] : 1940 LOCATION: ER AGE: 80 SEX: M EXAM STATUS: REG ER ORD. PHYSICIAN: RAKESH REES APRN REASON: syncope PROCEDURE: PORTABLE CHEST 1V XR CHEST 1V History: Reason: syncope / Spl. Instructions: / History: Comparison: July 04, 2021 Findings: No consolidation or pleural effusion. Normal heart size. No pneumothorax. Impression: 1. No acute cardiopulmonary process. Electronically signed by: Patrice Armenta DO (10/24/2021 2:02 PM) [facility] DICTATED and SIGNED BY: PATRICE ARMENTA DO DATE: 10/24/21 [id number] 0 Course & Med Decision Making: Course & Med Decision Making Pertinent Labs and Imaging studies reviewed. (See chart for details) See HPI. Alert and oriented x4. Ambulatory steady gait. Skin pink warm and dry. Full range of motion of the neck. No focal bony spinal tenderness. Tenderness to the lower back of the head but there is no abrasion, swelling, bruising, laceration, redness. Lungs are clear in upper lobes and diminished in lower lobes. PERRLA. Patient states he feels normal and has no other complaints. CT head and blood work normal. I went over this patient with Dr Canseco who states the patietn is ok to go home. [] Dragon Disclaimer: Dragmadina Disclaimer: This electronic medical record was generated, in whole or in part, using a voice recognition dictation system. Departure Departure Impression: Primary Impression: Syncope Qualified Codes: R55 - Syncope and collapse Additional Impression: Head injury Qualified Codes: S09.90XA - Unspecified injury of head, initial encounter Disposition: HOME / SELF CARE / HOMELESS Condition: STABLE Referrals: UNKNOWN PCP NAME (PCP) Patient Instructions: Head Injury, Adult, Syncope Additional Instructions: FOLLOW UP WITH YOUR PRIMARY CARE PROVIDER SOON POSSIBLE. DRINK PLENTY OF FLUIDS TO STAY HYDRATED. IF YOU BEGIN HAVING VOMITING, DIZZINESS, SEVERE HEADACHE, OR CHEST PAIN RETURN TO ED. RAKESH REES [employer] PICKING SUPERVISOR Oct 24, 2021 13:31
[2021-10-24 13:32] LABS: ALBUMIN 3.8 g/dL (3.4-5.0); TOTAL BILIRUBIN 0.3 mg/dL (0.2-1.0); TOTAL PROTEIN 7.6 g/dL (6.4-8.2)
--- NOTE | 2021-10-24 13:56 | EKG ---
[facility] [address] [place] [address] Test Date: 2021-10-24 Test Time: 12:43:50 Pat Name: LAURA SANCHEZ Department: Room: Gender: Correctional Supervisor Lieutenant: : 1940 Requested By: RAKESH REES Order Number: [id number] Reading MD: Aj Bell Measurements Intervals [place] Rate: 68 P: 48 FL: 212 QRS: 7 QRSD: 66 T: 106 QT: 388 QTc: 413 Interpretive Statements SINUS RHYTHM ATRIAL PREMATURE COMPLEX(ES) T ABNORMALITY IN HIGH LATERAL LEADS ABNORMAL ECG Electronically Signed On 10-27-2021 15:18:56 AUDIT MGR by Aj Bell
--- NOTE | 2021-10-24 14:00 | RAD ---
Exam Date: 10/24/2021 12:[address] HEAD AND C-SPINE WO Indication: Reason: hit back of head, syncope / Spl. Instructions: / History: . One or more of the following dose reduction techniques were utilized: *Automated exposure control (AEC) *Adjustment of mA and/or kV according to patient size *Use of iterative reconstruction technique *CT scan done according to ALARA, or ALARA/IMAGE GENTLY EXAMINATION: CT OF THE HEAD WITHOUT CONTRAST INDICATION: Trauma, head injury, headache; TECHNIQUE: Noncontrast helical axial CT images of the head were obtained. COMPARISON: April 19, 2020 FINDINGS: The ventricles and sulci are prominent consistent with cerebral volume loss. Patchy ill-defined low attenuation areas in the subcortical and periventricular white matter bilaterally are consistent with microvascular disease. There is no evidence of acute intracranial hemorrhage, extra-axial collecti on, mass effect, midline shift, or acute territorial infarct. No lesion of the skull base or the calv arium is seen. The visualized paranasal sinuses, mastoid air cells, and orbits are normal in appearan ce. IMPRESSION: No evidence for acute intracranial abnormality. Volume loss and microvascular disease. EXAMINATION: CT OF THE CERVICAL SPINE WITHOUT CONTRAST Clinical Indication: Cervical spine pain after trauma Technique: Thin cut helical axial CT images through the cervical spine were obtained without contrast on a multi-detector CT scanner. Source data was then reconstructed into sagittal and coronal planes. Findings: Alignment is maintained without spondylolisthesis. Vertebral body heights are maintained without acute fracture. Moderate multilevel degenerative change s are noted. No significant prevertebral soft tissue swelling is demonstrated. No severe osseous cent ral canal stenosis is seen. Impression: No evidence of acute cervical spine fracture or subluxation. Electronically signed by: Gibson Becerra MD (10/24/2021 1:57 PM) [id number]
--- NOTE | 2021-10-24 14:05 | RAD ---
XR CHEST 1V History: Reason: syncope / Spl. Instructions: / History: Comparison: July 04, 2021 Findings: No consolidation or pleural effusion. Normal heart size. No pneumothorax. Impression: 1. No acute cardiopulmonary process. Electronically signed by: Patrice Armenta DO (10/24/2021 2:02 PM) [facility]
[2021-10-24 14:10] VITALS: BP 180/84
== END 2021-10-24 14:25 | disposition home or self-care (01) ==
LOC: ER 10:21
DX: S09.90XA Unspecified injury of head, initial encounter (principal); R55 Syncope and collapse; E11.9 Type 2 diabetes mellitus without complications; E78.00 Pure hypercholesterolemia, unspecified; I10 Essential (primary) hypertension; Z86.73 Personal history of transient ischemic attack (TIA), and cerebral infarction without residual deficits; F17.200 Nicotine dependence, unspecified, uncomplicated; W06.XXXA Fall from bed, initial encounter; Y93.89 Activity, other specified; Y92.89 Other specified places as the place of occurrence of the external cause; Y99.8 Other external cause status
CPT/HCPCS: 36415; 70450; 71045; 72125; 80053; 82550; 83735; 84484; 85025; 93005; 99284-25; 99285-25

== ENCOUNTER 2021-12-20 21:26 | Emergency (ER) | payer MEDICARE ==
[~2021-12-20] VITALS: Ht 175.3 cm; Wt 89.0 kg
--- NOTE | 2021-12-20 21:58 | PHYS DOC ---
Past Medical History Past Medical History: Arthritis, Diabetes-Type II, High Cholesterol, Hype rtension, Prostatitis, TIA, Other Additional Past Medical Histor: enlarged prostate Past Surgical History: Other Additional Past Surgical Histo: cataract Left Smoking Status: Former Smoker Alcohol Use: Occasionally Drug Use: None General Adult EDM: Chief Complaint: ALTERED MENTAL STATUS HPI: HPI: 81 yo M PMH hypertension, high cholesterol, BPH, smoking, diabetes, TIA, prostatitis, left cataract and arthritis presents the ED with his who reports pt is not acting right. Pt states "something doesn't feel right," and c/o seeing people and dysuria "for awhile, months." Last known well at 3:30pm today.Denies any alcohol or drugs. No recent fall or head injury. Patient went to work for approximately 1 hour this evening. came home around 730 and noticed patient was in his chair dozing off-more lethargic than his baseline mental status with weakness upon ambulating. Patient ambulates without assistance. Patient does report complaints of left chronic shoulder pain and has history of olecranon bursitis. Review of Systems: Review of Systems: Constitutional: Denies fever or chills. [] Eyes: Denies change in visual acuity. [] HENT: Denies nasal congestion or sore throat. [] Respiratory: Denies cough or shortness of breath. [] Cardiovascular: Denies chest pain or edema. [] GI: Denies abdominal pain, nausea, vomiting, bloody stools or diarrhea. [] : Denies hematuria or incontinence Musculoskeletal: Denies back pain or flank pain Integument: Denies rash or diaphoresis Neurologic: Denies headache, focal weakness or sensory changes. [] Endocrine: Denies polyuria or polydipsia. [] Lymphatic: Denies swollen glands. [] Psychiatric: Denies depression or anxiety. [] Heart Score: C/O Chest Pain: No Risk Factors: Risk Factors: DM, Current or recent (<one month) smoker, HTN, HLP, family history of CAD, obesity. Risk Scores: Score 0 - 3: 2.5% MACE over next 6 weeks - Discharge Home Score 4 - 6: 20.3% MACE over next 6 weeks - Admit for Clinical Observation Score 7 - 10: 72.7% MACE over next 6 weeks - Early Invasive Strategies Allergies: Allergies: Allergies Coded Allergies Type Severity Reaction Last Updated Verified No Known Drug Allergies 12/15/16 No Physical Exam: PE: Constitutional: no acute distress, non-toxic appearance, speaking full sentences but appears tired/sleep deprived, easily arousable HENT: Normocephalic, atraumatic, dry mucous membrane Eyes: Pupils equal reactive, EOMI, conjunctiva normal, no discharge, proptosis present with arcus senilis Neck: Normal range of motion, supple, Cardiovascular: S1/2 present, regular rhythm Lungs & Thorax: Speaking in full sentences, bilateral equal chest rise, no tachypnea or increased work of breathing Abdomen: soft, no tenderness, Skin: Warm, dry, no erythema, no rash. [] Back: No tenderness, no CVA tenderness. [] Extremities: No tenderness, no cyanosis, Neurologic: NIHSS0, Alert and oriented X 3, moves all 4 extremities, normal motor function, normal sensory function, no focal deficits noted. [] Psychologic: Normal judgment, apathetic mood, EKG: EKG: Sinus rhythm 6 6 bpm, no axis deviation, normal intervals, T wave inversion aVL, no ST elevation or ST depression Radiology/Procedures: Radiology/Procedures: IMAGING REPORT Signed PATIENT: LAURA SANCHEZ ACCOUNT: [id number] : 1940 LOCATION: ER AGE: 81 SEX: M EXAM STATUS: PRE ER ORD. PHYSICIAN: HOLDEN RICKS DO REASON: weakness, ams PROCEDURE: CT HEAD WO CONTRAST Exam: CT head INDICATION: Weakness TECHNIQUE: Sequential axial images through the head were obtained without the administration of IV contrast. Exposure: One or more of the following in the visualized dose reduction techniques were utilized for this examination: 1. Automated exposure control 2. Adjustment of the MA and/or KV according to patient size 3. Use of iterative of reconstructive technique Comparisons: None FINDINGS: No focal parenchymal lesion or hemorrhage is identified. There is no midline shift or sulcal effacement. Moderate patchy hypodensity in the periventricular white matter similar to prior study. No acute vascular territory infarction is identified. Amor-white distinction is preserved. The ventricular system is within normal limits without compression hydrocephalus. The basal cisterns are well maintained. The visualized portions of the paranasal sinuses and mastoid air cells are well- pneumatized. No acute fractures. IMPRESSION: No acute intracranial abnormality. Electronically signed by: Kami Tom MD (12/20/2021 10:15 PM) [facility] DICTATED and SIGNED BY: KAMI TOM MD DATE: 12/20/214732TYS1 0 IMAGING REPORT Signed PATIENT: LAURA SANCHEZ ACCOUNT: [id number] : 1940 LOCATION: ER AGE: 81 SEX: M EXAM STATUS: PRE ER ORD. PHYSICIAN: HOLDEN RICKS DO REASON: weakness, ams PROCEDURE: PORTABLE CHEST 1V Single view chest dated 12/20/2021 10:16 PM: COMPARISON: 10/24/2021 Clinical Indication: Weakness and altered mental status. Findings: Single upright portable exam of the chest was performed. Heart size and mediastinal contours are within normal limits. Lungs are clear. No consolidation or pleural effusion. No pneumothorax. IMPRESSION: No acute radiographic abnormality. Electronically signed by: Cole Roy MD (12/20/2021 10:16 PM) [facility] DICTATED and SIGNED BY: COLE ROY MD DATE: 12/20/[id number] 0 Course & Med Decision Making: Course & Med Decision Making Pertinent Labs and Imaging studies reviewed. (See chart for details) Concern for resolved delirium in the setting of trichomoniasis and kidney disease, slightly worsened from October of this year. I informed patient and his of trichomonaisis and educated that this is a sti- reports they are not sexually active. Patient was educated that all sexual partners need to be treated. Urinalysis concerning for 1-4 WBCs, trace leukocyte esterase and blood-we will treat with Vantin. Pt awake, alert, with steady gait. No confusion or impairment in ed, has medical decision-making capacity. Will discharge home with strict ED return precautions were given for syncope, facial droop, aphasia, or arm and leg weakness (return precautions for stroke symptoms). Encouraged urgent outpatient follow-up with PMD for routine care and nephrology for management of kidney disease. Life-threatening processes were considered but are low suspicion at this time, given history, physical exam and ED workup. Pt was educated on all prescription medications and adverse effects. All patient's questions were answered and pt was stable at time of discharge. I have spoken with the patient and/or caregivers. I explained the patient's condition, diagnoses and treatment plan based on the information available to me at this time. I have answered the patient and/or caregiver's questions and ad dressed any concerns. The patient and/or caregivers have a good understanding of patient's diagnosis, condition and treatment plan as can be expected at this point. Vital signs have been stable. Patient's condition is stable and appropriate for discharge from the emergency department. Patient will pursue further outpatient evaluation with primary care physician or other designated or consulting physician as outlined in the discharge instructions. The patient and/or caregivers are agreeable to this plan of care and follow-up instructions have been explained in detail. The patient and/or caregivers have received these instructions in written form and have expressed an understanding of the discharge instructions. The patient and/or caregivers are aware that any significant change of condition or worsening of symptoms should prompt immediate return to this or the closest emergency department or call to [facility]. [place]kay Disclaimer: Kaykay Disclaimer: This electronic medical record was generated, in whole or in part, using a voice recognition dictation system. Departure Departure Impression: Primary Impression: CKD (chronic kidney disease) Additional Impressions: Confusion Trichomonal urethritis in male Disposition: 01 HOME / SELF CARE / HOMELESS Condition: STABLE Referrals: UNKNOWN PCP NAME (PCP) Follow-up with your primary care physician in 24 to 48 hours OR FOLLOW UP WITH FAMILY MEDICINE: [address] [facility], [facility] [address] [place] [address] Patient Instructions: Chronic Renal Insufficiency, Trichomoniasis Additional Instructions: He was treated for trichomoniasis-please notify all sexual partners they need to be treated. FOLLOW UP WITH NEPHROLOGY: FOR DEFINITIVE MANAGEMENT of renal disease [facility] [place] [address] [place] [place] [address] EMERGENCY DEPARTMENT GENERAL DISCHARGE INSTRUCTIONS Thank you for coming to [facility] Emergency Department (ED) today and trusting us with you care. We trust that you had a positive experience in our Emergency Department. If you wish to speak to the department management, you may call the Director at [phone]. YOUR FOLLOW UP INSTRUCTIONS ARE FOLLOWS: 1. Do you have a private Doctor? If you do not have a private doctor, please ask for a resource list of physicians or clinics that may be able to assist you with follow up care. 2. The Emergency Physicain has interpreted your x-rays. The X-Ray specialist will also review them. If there is a change in the findings, you will be notified in 48 hours when at all possible. 3. A lab test or culture has been done, your results will be reviewed and you will be notified if you need a change in treatment. ADDITIONAL INSTRUCTIONS AND INFORMATION: 1. Your care today has been supervised by a physician who is specially trained in emergency care. Many problems require more than one evaluation for a complete diagnosis and treatment. We recommend that you schedule your follow up appointment as recommended to ensure complete treatment of you illness or injury. If you are unable to obtain follow up care and continue to have a problem, or if your condition worsens, we recommend that you return to the ED. 2. We are not able to safely determine your condition over the phone nor are we able to give sound medical advice over the phone. For these safety reasons, if you call for medical advice we will ask you to come to the ED for further evaluation. 3. If you have any questions regarding these discharge instructions please call the ED at [phone]. SAFETY INFORMATION: In the interest of safety, wellness, and injury prevention; we encourage you to wear your sealbelt, if you smoke; quite smoking, and we encourage family to use a protective helmet for bicycling and other sporting events that present an increased risk for head injury. IF YOUR SYMPTOMS WORSEN OR NEW SYMPTOMS DEVELOP, OR YOU HAVE CONCERNS ABOUT YOUR CONDITION; OR IF YOUR CONDITION WORSENS WHILE YOU ARE WAITING FOR YOUR FOLLOW UP APPOINTMENT; EITHER CONTACT YOUR PRIMARY CARE DOCTOR, THE PHYSICIAN WHOSE NAME AND NUMBER YOU WERE GIVEN, OR RETURN TO THE ED IMMEDIATELY. Scripts Cefpodoxime Proxetil (CEFPODOXIME PROXETIL) 200 Mg Tablet 1 TAB PO BID for 10 Days, #20 TAB Prov: HOLDEN RICKS DO 12/21/21 HOLDEN RICKS DO Dec 20, 2021 21:58
[2021-12-20 22:04] LABS: BASO % 1 % (0-3); EOS # 0.1 x10^3/uL (0.0-0.7); EOS % 3 % (0-3); HEMATOCRIT 37.9 % (39.0-53.0); HEMOGLOBIN 12.1 g/dL (13.0-17.5); LYMPH # 2.8 x10^3/uL (1.0-4.8); LYMPH % 51 % (24-48); MEAN CORPUSCULAR HEMOGLOBIN 30 pg (25-35); MEAN CORPUSCULAR HGB CONC 32 g/dL (31-37); MEAN CORPUSCULAR VOLUME 94 fL (79-100); MONO # 0.2 x10^3/uL (0.0-1.1); MONO % 4 % (0-9); NEUT # 2.2 x10^3/uL (1.8-7.7); NEUT % 41 % (31-73); PLATELET COUNT 204 x10^3/uL (140-400); RED BLOOD COUNT 4.05 x10^6/uL (4.30-5.70); RED CELL DISTRIBUTION WIDTH 14.4 % (11.5-14.5); WHITE BLOOD COUNT 5.4 x10^3/uL (4.0-11.0)
[2021-12-20 22:13] LABS: CALCIUM 7.7 mg/dL (8.5-10.1); CREATININE 1.8 mg/dL (0.7-1.3); GFR 43.8; POTASSIUM 3.6 mmol/L (3.5-5.1)
--- NOTE | 2021-12-20 22:17 | RAD ---
Exam: CT head INDICATION: Weakness TECHNIQUE: Sequential axial images through the head were obtained without the administration of IV co ntrast. Exposure: One or more of the following in the visualized dose reduction techniques were utilized for this examination: 1. Automated exposure control 2. Adjustment of the MA and/or KV according to patient size 3. Use of iterative of reconstructive technique Comparisons: None FINDINGS: No focal parenchymal lesion or hemorrhage is identified. There is no midline shift or sulcal effaceme nt. Moderate patchy hypodensity in the periventricular white matter similar to prior study. No acute vasc ular territory infarction is identified. Amor-white distinction is preserved. The ventricular system is within normal limits without compression hydrocephalus. The basal cisterns are well maintained. The visualized portions of the paranasal sinuses and mastoid air cells are well-pneumatized. No acute fractures. IMPRESSION: No acute intracranial abnormality. Electronically signed by: Kami Fragoso MD (12/20/2021 10:15 PM) IVETH
[2021-12-20 22:18] LABS: ALBUMIN 3.4 g/dL (3.4-5.0); TOTAL BILIRUBIN 0.3 mg/dL (0.2-1.0); TOTAL PROTEIN 6.8 g/dL (6.4-8.2)
--- NOTE | 2021-12-20 22:19 | RAD ---
Single view chest dated 12/20/2021 10:16 PM: COMPARISON: 10/24/2021 Clinical Indication: Weakness and altered mental status. Findings: Single upright portable exam of the chest was performed. Heart size and mediastinal contours are with in normal limits. Lungs are clear. No consolidation or pleural effusion. No pneumothorax. IMPRESSION: No acute radiographic abnormality. Electronically signed by: Cole Roy MD (12/20/2021 10:16 PM) [facility]
[2021-12-20] MEDS ORDERED: IV NORMAL SALINE 1000ML BAG 1,000 ML IV SCH (22:30)
[2021-12-21 00:28] LABS: AMPHETAMINE/METHAMPHETAMINE NEG (NEG); BARBITURATES NEG (NEG); BENZODIAZEPINES NEG (NEG); CANNABINOIDS NEG (NEG); COCAINE NEG (NEG); METHADONE NEG (NEG); OPIATES POS (NEG); PHENCYCLIDINE NEG (NEG)
[2021-12-21 00:37] LABS: BILIRUBIN,URINE NEGATIVE (NEG); CLARITY,URINE HAZY; COLOR,URINE YELLOW; NITRITE,URINE NEGATIVE (NEG); PROTEIN,URINE NEGATIVE (NEG-TRACE)
[2021-12-21 00:47] LABS: BACTERIA,URINE 0 /HPF (0-FEW); RBC,URINE 0 /HPF (0-2); TRICHOMONAS,URINE PRESENT
[2021-12-21 01:42] VITALS: BP 122/61
[2021-12-21] MEDS ORDERED: cefTRIAXone IV Push 1 GM VIAL. IVP ONE (02:30)
[2021-12-21] MEDS ORDERED: metroNIDAZOLE 500 MG TABLET PO ONE (02:30)
[2021-12-21] MEDS ORDERED: CEFP200T PO (03:01)
--- NOTE | 2021-12-21 05:55 | EKG ---
[facility] [address] [place] [address] Test Date: 2021-12-20 Test Time: 22:23:40 Pat Name: LAURA FREEMAN Department: Room: Gender: M Vat Skimmer: : 1940 Requested By: HOLDEN RICKS Order Number: [id number] Reading MD: Ricardo Madrid MD Measurements Intervals [place] Rate: 66 P: LA: QRS: 40 QRSD: 66 T: 153 QT: 386 QTc: 406 Interpretive Statements SR 1ST DEGREE AVB Electronically Signed On 12-26-2021 11:27:47 SCIENTIFIC TECHNICAL WRITER by Ricardo Madrid MD
== END 2021-12-21 03:31 | disposition home or self-care (01) ==
LOC: ER 21:26
DX: A59.03 Trichomonal cystitis and urethritis (principal); R41.0 Disorientation, unspecified; E11.22 Type 2 diabetes mellitus with diabetic chronic kidney disease; I12.9 Hypertensive chronic kidney disease with stage 1 through stage 4 chronic kidney disease, or unspecified chronic kidney disease; N18.9 Chronic kidney disease, unspecified; Z87.891 Personal history of nicotine dependence; E78.00 Pure hypercholesterolemia, unspecified; Z86.73 Personal history of transient ischemic attack (TIA), and cerebral infarction without residual deficits
CPT/HCPCS: 36415; 70450; 71045; 80053; 80307; 81001; 83690; 83735; 83880; 84443; 84484; 85025; 87086; 93005; 96361; 96374; 99284; J0696; J7030; 99285-25